=== PATIENT | female | born 1940 | race Caucasian/White ===

== ENCOUNTER 2017-01-22 20:13 | Inpatient (IN) | payer MEDICARE, OTHER ==
[~2017-01-22 20:13] MED LIST: ISOVUE-370 76%-LOCM 1 ML ONE
[2017-01-22] MEDS ORDERED: methylPREDNISolone Sod Succ/PF 125 MG/2 ML VIAL ONE (20:30)
[2017-01-22 20:46] LABS: #Basophils 0.1 thou/uL (0.0-0.2); #Eosinphils 0.2 thou/uL (0.0-0.7); #Lymphocytes 2.7 thou/uL (1.20-3.40); #Monocytes 1.1 thou/uL (0.11-0.59); #Neutrophils 11.7 thou/uL (1.40-6.50); %Basophils 0.7 % (0.0-1.0); %Eosinophils 1.2 % (0.0-10.0); %Lymphocytes 17.1 % (21.0-51.0); Hematocrit 45.9 % (36.0-47.0); Mean Platelet Volume 8.1 fL (7.4-10.4); Red Blood Cell (RBC) Count 4.99 mill/uL (4.20-5.40); White Blood Cell (WBC) Count 15.9 thou/uL (4.8-10.8)
[2017-01-22 21:06] LABS: ALT (SGPT) 16 U/L (8-55); AST (SGOT) 19 U/L (5-34); Alkaline Phosphatase 84 U/L (40-150); Anion Gap 18 mmol/L (10-20); BUN (Urea Nitrogen) 21 mg/dL (9.8-20.1); Calc. Creatinine Clearance 0 mL/min (70-130); Calcium 9.7 mg/dL (7.8-10.44); Carbon Dioxide 25 mmol/L (23-31); Chloride 100 mmol/L (98-107); Estimated GFR-MDRD 54; Globulin 3.5 g/dL (2.4-3.5); Protein, Total 7.4 g/dL (6.0-8.3)
[2017-01-22] MEDS ORDERED: Albuterol Sulfate 2.5 mg/3 ml Neb ONE (21:11)
[2017-01-22 21:33] LABS: Troponin I 0.086 ng/mL (< 0.028)
--- NOTE | 2017-01-22 22:20 | RAD ---
AP VIEW OF THE CHEST 01/22/17 INDICATION: Shortness of breath and productive cough. COMPARISON: PA and lateral of the chest dated 07/16/16. IMPRESSION: Right costophrenic angle is excluded. There is cardiomegaly with pulmonary vasculature congestion and bilateral perihilar edema. Small suspected bilateral pleural effusions suspicious for CHF. COMMENTS: Post CABG change is similar. Chronic osseous changes. POS: [facility]
[2017-01-22] MEDS ORDERED: Furosemide 40 MG/4 ML VIAL ONE (22:26)
[2017-01-22] MEDS ORDERED: Acetaminophen 325 MG TAB PO PRN (23:23)
[2017-01-22] MEDS ORDERED: Guaifenesin DM 100-10/5 ML UDCUP PO PRN (23:23)
--- NOTE | 2017-01-22 23:31 | CT ---
CTA OF THE THORAX UTILIZING IV CONTRAST PE PROTOCOL AND 3D REFORMATTED IMAGING 01/22/17 COMPARISON: Prior exam dated 12/24/09. FINDINGS: No definite central or segmental pulmonary embolus is evident. There is some shotty appearing lymph n odes within the mediastinum which appear roughly stable to the prior exam. There is postsurgical riggins ges of right CABG. There is cardiomegaly with pulmonary vascular congestion, perihilar or air space o pacities suspicious for edema and pleural effusions. Visualized upper abdomen is unremarkable for acu te abnormality. There are scattered degenerative and osteoarthritic change. IMPRESSION: No central or segmental pulmonary embolus is demonstrated. Findings suspicious for mild CHF. POS: [facility]
[2017-01-22 23:53] LABS: Troponin I 0.088 ng/mL (< 0.028)
[2017-01-22] MEDS ORDERED: Azithromycin 500 MG in Sodium Chloride 0.9% 250 ML 250 ML IVPB SCH (23:59)
[2017-01-23] MEDS ORDERED: Metoprolol Tartrate 50 MG TAB PO SCH (00:30)
[2017-01-23] MEDS ORDERED: Morphine 4 MG/ML VIAL IV SCH (02:15)
[2017-01-23] MEDS ORDERED: Morphine 2 mg/2ml in 0.9% NaCl PF SYRINGE SLOW IVP PRN (02:17)
[2017-01-23 03:07] LABS: Troponin I 0.083 ng/mL (< 0.028)
[2017-01-23 03:10] LABS: Band 5 % (5-11); Hematocrit 42.7 % (36.0-47.0); Hypochromia SLIGHT = 6-15 cells (100X) (0-5/hpf); Mean Platelet Volume 8.2 fL (7.4-10.4); Neutrophil 83 % (42-75); Red Blood Cell (RBC) Count 4.69 mill/uL (4.20-5.40); White Blood Cell (WBC) Count 13.3 thou/uL (4.8-10.8)
[2017-01-23 03:11] LABS: ALT (SGPT) 18 U/L (8-55); AST (SGOT) 17 U/L (5-34); Alkaline Phosphatase 80 U/L (40-150); Anion Gap 16 mmol/L (10-20); BUN (Urea Nitrogen) 23 mg/dL (9.8-20.1); Bilirubin, Total 0.7 mg/dL (0.2-1.2); Calc. Creatinine Clearance 89 mL/min (70-130); Calcium 9.3 mg/dL (7.8-10.44); Carbon Dioxide 27 mmol/L (23-31); Chloride 98 mmol/L (98-107); Estimated GFR-MDRD 51; Globulin 3.3 g/dL (2.4-3.5); Protein, Total 7.1 g/dL (6.0-8.3)
--- NOTE | 2017-01-23 08:12 | HP ---
DATE OF ADMISSION: 01/23/2017 CHIEF COMPLAINT: Shortness of breath. HISTORY OF PRESENT ILLNESS: Patient is a 76-year-old female. She presented to the emergen cy room by EMS for shortness of breath that has been going on for about a week. She also has product rakan cough and she reports that she has a lot of chest discomfort, especially when she is coughing. S he has been sick with the upper respiratory infection. Even before the holiday Thanks, she rep orted that she got better, but then it returned. It got worse post the holidays and patient did see her primary care physician, had some injections of steroids as well as antibiotics. At this time, ronnie coppola stated that she does not have any fever or has not been having any fever. No swellings in the legs and she has no nausea or vomiting, no chest pain other than the chest discomfort that she gets w hen she is coughing and having the cough spell. Patient does use oxygen at home up to 2 liters, hist ory of CHF. She also has nebulizer machine as well that she uses and she has been using both her neb ulizing treatment and her albuterol with minimal relief. Patient denied any nausea or vomiting. No chest pain, no diaphoresis, no chills. No anxiety. She does have some dyspnea, especially with exer tion. She reported wheezing as well. PAST MEDICAL HISTORY: Includes congestive heart failure, CAD, she does have hypothyroidism, hyperlip idemia, hypertension, and is on home oxygen at 2 liters her baseline. PAST SURGICAL HISTORY: She has had hernia implant, bilateral knee surgery, bilateral carpal tunnel, cholecystectomy, tonsillectomy, and also CABG of 4 vessels. ALLERGIES: She has no known allergies. SOCIAL HISTORY: The patient denies using any illicit drugs. No smoking, no alcohol. FAMILY HISTORY: No significant medical history. REVIEW OF SYSTEMS: All 12 systems were reviewed. Pertinent negatives and positives were mentioned i n the HPI. PHYSICAL EXAMINATION: VITAL SIGNS: Blood pressure on admission was 116/82 with tachy 149. She was ox satting at 91% on O2 with respiratory rate of 28 and temperature of 98.2. CONSTITUTIONAL: She appeared to be not in any acute distress. She appears to be tachycardic; howeve r, alert and oriented x3. HEAD: Normal. Atraumatic, normocephalic. EYES: Equally round and reactive to light. ENT: Normal. NECK: Normal. RESPIRATORY: She was wheezing in all lobes. CARDIOVASCULAR: She is tachycardic, but rhythm is regular. Heart sounds normal. ABDOMEN: Nontender. Bowel sounds normal. No pulsatile mass. MUSCULOSKELETAL: Upper or lower extremities were all normal exam with normal range of motion. NEUROLOGIC: She is A&O x3. No focal motor deficits. SKIN: Warm, dry. IMAGING AND LABORATORY DATA: Chest x-ray showed findings consistent with CHF. Official lab report o n chart. WBC was slightly elevated on admission, it is 15.9, trended down to 13.3 with latest blood check. Hemoglobin and hematocrit is 14.5 and 45.9. She does have a little bit of neutrophils elevat ed at 83. Her potassium is 3.5, creatinine 1.01, BUN of 21. Sodium 139 and chloride 100. Her tropo lyubov bumped at 0.088 and was trending it, BNP was 645. IMPRESSION: 1. Acute exacerbation of chronic obstructive pulmonary disease. 2. Congestive heart failure exacerbation, acute on chronic. 3. Shortness of breath likely secondary to the above previously mentioned. PLAN: So for plan, the patient is full admission. Condition is fair. Activity as tolerated. The p atient was started on antibiotics as well as breathing treatments. We will continue to follow up. C ontinue home medications and bilateral SCDs for DVT prophylaxis.
[2017-01-23] MEDS: Enoxaparin Sodium 40 MG/0.4 ML SYRINGE SC SCH (08:23)
[2017-01-23] MEDS ORDERED: methylPREDNISolone Sod Succ/PF 125 MG/2 ML VIAL IVP SCH (09:00)
[2017-01-23] MEDS ORDERED: Furosemide 40 MG/4 ML VIAL SLOW IVP SCH (09:00)
[2017-01-23 11:59] LABS: Troponin I 0.095 ng/mL (< 0.028)
[2017-01-23] MEDS ORDERED: Sterile Water 10 ML ONE (11:59)
[2017-01-23 12:36] LABS: Bilirubin Negative (Negative); Blood, Urine Small (Negative); Glucose, Urine (Dipstick) Negative (Negative); Ketone, Urine Negative (Negative); Nitrite Negative (Negative); Protein, Urine (Dipstick) Negative (Neg-Trace)
[2017-01-23 12:38] LABS: Bacteria/HPF None Seen HPF (None Seen); Hyaline Casts/LPF 7-10 HYALINE CAST LPF (0-3 Hyaline); Squamous Epithelial 0-3 HPF (0-3)
--- NOTE | 2017-01-23 13:15 | CON ---
DATE OF CONSULTATION: 01/23/2017 HISTORY OF PRESENT ILLNESS: Ms. Hahn is a 76-year-old female. She was seen by Dr. Stoll in the [facility]. She tells me that he said she does not have lung disease and just has cardiomyopathy. She has b een followed by Dr. Cintron and Dr. Gifford. Dr. Gifford in 08/2005 did a PELLETIER to LAD bypass and saphenou s vein graft to diagonal, obtuse marginal, and right posterolateral branch. She did reasonably well postop other than requiring some low dose dopamine. She dealt with atrial fibrillation postop. She has been followed by Dr. Cintron since then. PAST MEDICAL HISTORY: 1. Hypertension. 2. She has a history of borderline diabetes. 3. History of hypothyroidism reportedly. 4. History of lipid disorder. 5. History of chronic home oxygen therapy. 6. History of herniorrhaphy. 7. History of bilateral knee surgery and carpal tunnel surgery. 8. History of cholecystectomy. 10. History of tonsillectomy. SOCIAL HISTORY: She is a nonsmoker and nondrinker. ALLERGIES: She has no reported drug allergies. REVIEW OF SYSTEMS: Otherwise negative. She says she feels much better than she felt last night. PHYSICAL EXAMINATION: VITAL SIGNS: Blood pressure 108/77. She is in atrial fibrillation with a heart rate of 104, some tr ees fluctuating between the high 80s and low 90s. HEENT: Pupils are equal. Sclerae is anicteric. GENERAL: She is in absolutely no distress. NECK: Supple. She has no lymphadenopathy. LUNGS: Clear now. HEART: Irregular rhythm. ABDOMEN: Soft and nontender. EXTREMITIES: Without asymmetry. RADIOGRAPHIC STUDIES: CT pulmonary angiogram showed no embolic disease, findings consistent with mil d pulmonary edema. IMPRESSION: Congestive heart failure with ? component of cardiac asthma and asthmatic bronchitis. I t is reasonable at this time to treat her, so she has a little bronchitis and she has been symptomati c for a couple weeks. She actually called the office Wednesday to see if Dr. Stoll was in, but did not a sk to be seen. She saw her primary physician on Wednesday who gave her steroid injection and a nebuliz er treatment, I believe which led to some improvement. She declined throughout the rest of the week and decided to head to the emergency room last night. She said she had markedly clinically improved. She is stable to move out of the Critical Care Unit i n my opinion.
--- NOTE | 2017-01-23 14:48 | PDOC.PN ---
- Subjective Encounter Start Date: 01/23/17 Encounter Start Time: 14:46 breathing better no f/c no n/v - Objective MAR Reviewed: Yes Vital Signs & Weight: Vital Signs (12 hours) Temp Pulse Resp BP Pulse Ox 01/23/17 10:45 97.8 F 93 20 135/73 94 L 01/23/17 08:00 97.9 F 79 18 96 01/23/17 04:00 97.7 F Weight Admit Weight 267 lb 3.2 oz Weight 267 lb 3.204 oz Most Recent Monitor Data Heart Rate from ECG 98 NIBP 137/62 NIBP BP-Mean 76 Respiration from ECG 13 SpO2 94 I&O: 01/22/17 01/23/17 01/24/17 06:59 06:59 06:59 Intake Total 490 360 Output Total 810 140 Balance -320 220 Result Diagrams: 01/23/17 02:34 01/23/17 02:34 Phys Exam - Physical Examination Constitutional: NAD HEENT: PERRLA Neck: no nodes Respiratory: no wheezing bibasilar rales, scattered rhonchi Cardiovascular: no significant murmur Gastrointestinal: non-tender Musculoskeletal: pulses present Neurological: normal sensation Psychiatric: A&O x 3 Dx/Plan (1) Acute exacerbation of CHF (congestive heart failure) Code(s): I50.9 - HEART FAILURE, UNSPECIFIED Status: Acute (2) CAD (coronary artery disease) Code(s): I25.10 - ATHSCL HEART DISEASE OF [place] CORONARY ARTERY W/O ANG PCTRS Status: Acute (3) Hyperlipidemia Code(s): E78.5 - HYPERLIPIDEMIA, UNSPECIFIED Status: Acute (4) Hypothyroid Code(s): E03.9 - HYPOTHYROIDISM, UNSPECIFIED Status: Acute (5) HTN (hypertension) Code(s): I10 - ESSENTIAL (PRIMARY) HYPERTENSION Status: Acute (6) Acute exacerbation of chronic obstructive pulmonary disease (COPD) Code(s): J44.1 - CHRONIC OBSTRUCTIVE PULMONARY DISEASE W (ACUTE) EXACERBATION Status: Acute - Plan * cont diuresis * cont steroid and abx * pulm and card input appreciated * f/u labs
[2017-01-23] MEDS: Furosemide 40 MG/4 ML VIAL SLOW IVP SCH (14:57)
--- NOTE | 2017-01-23 16:45 | CON ---
DATE OF CONSULTATION: 01/23/2017 DATE OF CONSULTATION: Shortness of breath and atrial flutter. PRIMARY MACHINE CAGE MAKER: Flory Cintron M.D. REFERRING PROVIDER: Dr. Romano. HISTORY OF PRESENT ILLNESS: Ms. Hahn is a very pleasant 76-year-old woman who recently presented with shortness of breath. She states she has had shortness of breath over the last 2 weeks. It has been progressive. She states she had difficulty walking across room. She presented to the emergency room with above. She is found to be in heart failure. She does have a history of underlying CAD wi th cardiomyopathy. She was also found to be in atrial flutter. PAST MEDICAL HISTORY: CAD, hypertension, hyperlipidemia, and hernia repair. PAST SURGICAL HISTORY: Knee surgery, cholecystectomy, and tonsillectomy. SOCIAL HISTORY: No current tobacco or alcohol use. ALLERGIES: None. HOME MEDICATIONS: Allopurinol, Naprosyn, gabapentin, tizanidine, ranitidine, Lipitor, aspirin, Zolof t, Synthroid, Lasix, and Zestril. REVIEW OF SYSTEMS: Ten point review of systems is reviewed and as above, otherwise negative. PHYSICAL EXAMINATION: GENERAL: Patient is a pleasant female who is in no acute distress. The patient appears her stated a ge. VITAL SIGNS: Blood pressure 135/73, pulse 93, temperature 97.8. NEUROLOGIC: The patient is alert and oriented times 3 with no focal neurologic deficits. HEENT: Sclerae without icterus. Mouth has moist mucous membranes with normal pallor. NECK: No JVD. Carotid upstroke brisk. No bruits bilaterally. LUNGS: Crackles bilaterally. BACK: No scoliosis or kyphosis. CARDIAC: Regular rate and rhythm with normal S1 and S2. No S3 or S4 noted. No significant rubs, mu rmurs, thrills, or gallops noted throughout the precordium. PMI is not displaced. There is no ulysses ternal heave. ABDOMEN: Soft, nontender, nondistended. No peritoneal signs present. No hepatosplenomegaly. No abnormal striae. EXTREMITIES: 2+ femoral and 2+ dorsalis pedis pulses. No cyanosis, clubbing, or edema. SKIN: No gross abnormalities. PERTINENT LABORATORY DATA AND IMAGING: Hemoglobin 13.7, creatinine 1.06. Peak troponin 0.088. Telemetry monitoring shows atrial flutter. IMPRESSION: 1. Shortness of breath. 2. Coronary artery disease. 3. Acute on chronic systolic heart failure. 4. Chronic obstructive pulmonary disease. RECOMMENDATIONS: Ms. Hhan is currently on Lasix IV. She has diuresed. She does feel better. He r rate also appears controlled. At this point, would recommend anticoagulation therapy. She may als o benefit from atrial flutter ablation. We will consult EP on Wednesday. Otherwise, continue aspirin i n addition to metoprolol 25 b.i.d.
[2017-01-23 18:12] LABS: Troponin I 0.091 ng/mL (< 0.028)
[2017-01-23] MEDS: Allopurinol 100 MG TAB PO SCH (21:25)
[2017-01-23] MEDS: Gabapentin 100 MG CAP PO SCH (21:25)
[2017-01-23] MEDS: Metoprolol Tartrate 25 MG TAB PO SCH (21:25)
[2017-01-24] MEDS: Furosemide 40 MG/4 ML VIAL SLOW IVP SCH ×2 (05:00→15:18)
[2017-01-24] MEDS: Levothyroxine Sodium 50 MCG TAB PO SCH (05:01)
[2017-01-24 05:31] LABS: Anion Gap 12 mmol/L (10-20); BUN (Urea Nitrogen) 35 mg/dL (9.8-20.1); BUN/Creatinine Ratio 33.02; Calc. Creatinine Clearance 89 mL/min (70-130); Calcium 9.4 mg/dL (7.8-10.44); Carbon Dioxide 31 mmol/L (23-31); Chloride 99 mmol/L (98-107); Estimated GFR-MDRD 51
[2017-01-24] MEDS ORDERED: Sodium Chloride 0.9% 10 ML ONE (08:55)
[2017-01-24] MEDS: Metoprolol Tartrate 25 MG TAB PO SCH ×2 (10:41→20:20)
[2017-01-24] MEDS: Aspirin 81 mg Enteric Coated Tablet PO SCH (10:41)
[2017-01-24] MEDS: Lisinopril 10 MG TAB PO SCH (10:41)
[2017-01-24] MEDS: Atorvastatin Calcium 10 MG TAB PO SCH (10:41)
[2017-01-24] MEDS: Enoxaparin Sodium 40 MG/0.4 ML SYRINGE SC SCH (10:42)
--- NOTE | 2017-01-24 12:14 | RAD ---
PORTABLE CHEST: HISTORY: Aspiration. COMPARISON: 01/22/17 study. FINDINGS: Heart size is enlarged. The perihilar and lower lobe markings appear slightly improved suggesting th ere is some improving pulmonary edema change. There is no confluent infiltrative process. IMPRESSION: Cardiomegaly with a suggestion of some improvement to some pulmonary edema-type change. POS: [facility]
--- NOTE | 2017-01-24 14:34 | PRG ---
DATE OF SERVICE: 01/24/2017 SUBJECTIVE: Ms. Hahn apparently says she aspirated some turkey this morning, but eventually did c ough it up. She said she had a prolonged period of coughing and significant bronchospasm after that, but says she is cleared up now. OBJECTIVE: VITAL SIGNS: She is afebrile, heart rate is 95, respiratory rate is 18, oximetry is 90, blood pressu re 120/63. LUNGS: Remarkable for faint end-expiratory wheezes. CARDIOVASCULAR: Regular rhythm. ABDOMEN: Soft. IMPRESSION: 1. ?cardiac asthma. 2. Acute on chronic heart failure. 3. Atrial flutter. Electrophysiology plans to evaluate her. She appears to be stable at this time.
--- NOTE | 2017-01-24 15:25 | PDOC.PN ---
- Subjective Encounter Start Date: 01/24/17 Encounter Start Time: 15:24 Patient seen and examined. No new complaints. No overnight events - Objective MAR Reviewed: Yes Vital Signs & Weight: Vital Signs (12 hours) Temp Pulse Resp BP BP Pulse Ox 01/24/17 13:28 97.9 F 95 18 120/63 90 L 01/24/17 12:00 96.7 F L 95 22 H 146/75 H 92 L 01/24/17 10:41 142/70 H 01/24/17 09:52 94 L 01/24/17 09:49 94 16 01/24/17 08:00 98.7 F 94 20 142/70 H 92 L 01/24/17 04:00 97.9 F 90 18 114/68 90 L Weight Admit Weight 267 lb 3.2 oz Weight 280 lb 3 oz Most Recent Monitor Data Heart Rate from ECG 98 NIBP 137/62 NIBP BP-Mean 76 Respiration from ECG 13 SpO2 94 I&O: 01/23/17 01/24/17 01/25/17 06:59 06:59 06:59 Intake Total 490 1110 Output Total 810 840 Balance -320 270 Result Diagrams: 01/23/17 02:34 01/24/17 04:37 Phys Exam - Physical Examination Constitutional: NAD HEENT: PERRLA Neck: no JVD bibasilar rales Cardiovascular: no significant murmur Gastrointestinal: non-tender, no distention Musculoskeletal: pulses present Neurological: moves all 4 limbs Psychiatric: A&O x 3 Dx/Plan (1) Acute exacerbation of CHF (congestive heart failure) Code(s): I50.9 - HEART FAILURE, UNSPECIFIED Status: Acute (2) CAD (coronary artery disease) Code(s): I25.10 - ATHSCL HEART DISEASE OF [place] CORONARY ARTERY W/O ANG PCTRS Status: Acute (3) Hyperlipidemia Code(s): E78.5 - HYPERLIPIDEMIA, UNSPECIFIED Status: Acute (4) Hypothyroid Code(s): E03.9 - HYPOTHYROIDISM, UNSPECIFIED Status: Acute (5) HTN (hypertension) Code(s): I10 - ESSENTIAL (PRIMARY) HYPERTENSION Status: Acute (6) Acute exacerbation of chronic obstructive pulmonary disease (COPD) Code(s): J44.1 - CHRONIC OBSTRUCTIVE PULMONARY DISEASE W (ACUTE) EXACERBATION Status: Acute - Plan * cont diuresis * cont steroid and abx * pulm and card input appreciated * f/u labs * f/u dr chappell rec's
[2017-01-24] MEDS: Gabapentin 100 MG CAP PO SCH (20:20)
[2017-01-24] MEDS: Allopurinol 100 MG TAB PO SCH (20:20)
[2017-01-24] MEDS ORDERED: Enoxaparin Sodium 100 MG/ML SYRINGE SC SCH (21:00)
[2017-01-25] MEDS: Levothyroxine Sodium 50 MCG TAB PO SCH (05:12)
[2017-01-25] MEDS: Furosemide 40 MG/4 ML VIAL SLOW IVP SCH ×2 (05:12→15:48)
[2017-01-25 05:45] LABS: Anion Gap 11 mmol/L (10-20); BUN (Urea Nitrogen) 39 mg/dL (9.8-20.1); BUN/Creatinine Ratio 33.62; Calc. Creatinine Clearance 85 mL/min (70-130); Calcium 9.2 mg/dL (7.8-10.44); Carbon Dioxide 34 mmol/L (23-31); Chloride 99 mmol/L (98-107); Estimated GFR-MDRD 46; Phosphorus 4.2 mg/dL (2.3-4.7)
[2017-01-25] MEDS: Aspirin 81 mg Enteric Coated Tablet PO SCH (08:35)
[2017-01-25] MEDS: Atorvastatin Calcium 10 MG TAB PO SCH (08:35)
[2017-01-25] MEDS: Metoprolol Tartrate 25 MG TAB PO SCH ×2 (08:35→20:32)
[2017-01-25] MEDS ORDERED: Metolazone 5 MG TAB PO SCH (09:30)
[2017-01-25] MEDS ORDERED: Potassium Chloride 20 MEQ TAB PO SCH (09:30)
[2017-01-25] MEDS: Lisinopril 10 MG TAB PO SCH (09:35)
[2017-01-25] MEDS: Enoxaparin Sodium 40 MG/0.4 ML SYRINGE SC SCH (09:35)
--- NOTE | 2017-01-25 09:39 | PRG ---
DATE OF SERVICE: 01/25/2017 SUBJECTIVE: Ms. Hahn still is not breathing normally. OBJECTIVE: VITAL SIGNS: Blood pressure 100/57, pulse 90. LUNGS: With some expiratory wheezing. CARDIAC: Normal S1, normal S2. ABDOMEN: Soft, nontender. EXTREMITIES: Moderate edema. ASSESSMENT: 1. Congestive heart failure, systolic and diastolic. 2. Total volume overloaded. 3. Atrial flutter. 4. Hypokalemia. PLAN: 1. Given dose of metolazone. 2. Extra potassium. 3. Proceed with atrial flutter ablation per Dr. Ac. Per his plan, we will apparently need transes ophageal echo as well.
[2017-01-25 13:42] LABS: Bilirubin Negative (Negative); Blood, Urine Negative (Negative); Glucose, Urine (Dipstick) Negative (Negative); Ketone, Urine Negative (Negative); Nitrite Negative (Negative); Protein, Urine (Dipstick) Negative (Neg-Trace); Urobilinogen 0.2 mg/dL (0.2-1.0)
[2017-01-25 13:46] LABS: Bacteria/HPF None Seen HPF (None Seen); Hyaline Casts/LPF 0-3 HYALINE CAST LPF (0-3 Hyaline); Squamous Epithelial None Seen HPF (0-3); WBC/HPF 0-3 HPF (0-3)
--- NOTE | 2017-01-25 14:53 | PRG ---
DATE OF SERVICE: 01/25/2017 SUBJECTIVE: This morning, she is still coughing, still short of breath, she is wheezing. Apparently, she has seen EP for possible ablation. The sputum that she is coughing were grossly purulent. OBJECTIVE: VITAL SIGNS: Blood pressure 100/57, sats are 92 on 4 liters, respiration 20, temperature 97. CHEST: Reveals diffuse wheezing bilaterally. CARDIAC: Sinus tachycardia. ABDOMEN: Soft. LABORATORY DATA AND X-RAY FINDINGS: CBC unremarkable, creatinine 1.6. Cultures are negative. X-ray shows cardiomegaly with no obvious infiltrates. Echo shows normal EF. She had a CT done of her chest, which shows basically ground glass haziness and small bilateral pleural effusion. IMPRESSION: 1. Respiratory failure. 2. Supraventricular tachycardia. 3. Morbid obesity. PLAN: She needs scheduled neb treatments. She needs scheduled steroids. Await input from an EP. We will follow. DONNA
--- NOTE | 2017-01-25 17:18 | PDOC.PN ---
- Subjective Encounter Start Date: 01/25/17 Encounter Start Time: 17:17 doing much better no n/v no f/c - Objective MAR Reviewed: Yes Vital Signs & Weight: Vital Signs (12 hours) Temp Pulse Resp BP Pulse Ox 01/25/17 16:30 97.9 F 01/25/17 15:43 99.3 F 93 20 108/55 L 94 L 01/25/17 11:49 93 101/59 L 01/25/17 11:35 97.9 F 91 16 81/50 L 92 L 01/25/17 08:30 97.9 F 95 20 92 L 01/25/17 08:29 97.9 F 95 20 100/57 L 92 L 01/25/17 05:36 68 16 93 L Weight Admit Weight 267 lb 3.2 oz Weight 279 lb 5 oz Most Recent Monitor Data Heart Rate from ECG 98 NIBP 137/62 NIBP BP-Mean 76 Respiration from ECG 13 SpO2 94 I&O: 01/24/17 01/25/17 01/26/17 06:59 06:59 06:59 Intake Total 1110 1650 Output Total 840 2500 Balance 270 -850 Result Diagrams: 01/23/17 02:34 01/25/17 04:37 Phys Exam - Physical Examination Constitutional: NAD HEENT: PERRLA Neck: no JVD Respiratory: no wheezing Cardiovascular: no significant murmur Gastrointestinal: non-tender Musculoskeletal: pulses present Neurological: moves all 4 limbs Psychiatric: A&O x 3 Dx/Plan (1) Acute exacerbation of CHF (congestive heart failure) Code(s): I50.9 - HEART FAILURE, UNSPECIFIED Status: Acute (2) CAD (coronary artery disease) Code(s): I25.10 - ATHSCL HEART DISEASE OF [place] CORONARY ARTERY W/O ANG PCTRS Status: Acute (3) Hyperlipidemia Code(s): E78.5 - HYPERLIPIDEMIA, UNSPECIFIED Status: Acute (4) Hypothyroid Code(s): E03.9 - HYPOTHYROIDISM, UNSPECIFIED Status: Acute (5) HTN (hypertension) Code(s): I10 - ESSENTIAL (PRIMARY) HYPERTENSION Status: Acute (6) Acute exacerbation of chronic obstructive pulmonary disease (COPD) Code(s): J44.1 - CHRONIC OBSTRUCTIVE PULMONARY DISEASE W (ACUTE) EXACERBATION Status: Acute - Plan * * cont diuresis * cont steroid and abx * pulm and card input appreciated * f/u labs * f/u dr chappell rec's
[2017-01-25] MEDS ORDERED: Enoxaparin Sodium 100 MG/ML SYRINGE SC SCH (18:00)
[2017-01-25] MEDS: Mometasone/Formoterol 120 PUFF INHALER INH SCH (18:26)
[2017-01-25] MEDS: Gabapentin 100 MG CAP PO SCH (20:32)
[2017-01-25] MEDS: Allopurinol 100 MG TAB PO SCH (20:32)
[2017-01-26 05:01] LABS: #Basophils 0.1 thou/uL (0.0-0.2); #Eosinphils 0.3 thou/uL (0.0-0.7); #Monocytes 1.4 thou/uL (0.11-0.59); #Neutrophils 10.1 thou/uL (1.40-6.50); %Basophils 0.4 % (0.0-1.0); %Eosinophils 2.1 % (0.0-10.0); %Lymphocytes 14.5 % (21.0-51.0); Hematocrit 48.3 % (36.0-47.0); Mean Platelet Volume 8.3 fL (7.4-10.4); Red Blood Cell (RBC) Count 5.23 mill/uL (4.20-5.40); White Blood Cell (WBC) Count 13.8 thou/uL (4.8-10.8)
[2017-01-26] MEDS: Levothyroxine Sodium 50 MCG TAB PO SCH (05:22)
[2017-01-26 06:58] LABS: Anion Gap 16 mmol/L (10-20); BUN (Urea Nitrogen) 30 mg/dL (9.8-20.1); BUN/Creatinine Ratio 28.57; Calc. Creatinine Clearance 93 mL/min (70-130); Carbon Dioxide 37 mmol/L (23-31); Chloride 92 mmol/L (98-107); Estimated GFR-MDRD 51; Phosphorus 3.3 mg/dL (2.3-4.7)
--- NOTE | 2017-01-26 07:00 | CON ---
DATE OF CONSULTATION: 01/25/2017 ELECTROPHYSIOLOGY CONSULTATION REPORT I am seeing Ms. Hahn at our [facility] telemetry floor as an electrophysiology community resource consultant. Her problems are: 1. Sustained atrial flutter, likely typical and isthmus-dependent in morphology. 2. Chronic systolic/diastolic congestive heart failure with acute exacerbation. A. Moderately reduced LVEF by 2D echo on 01/23/2017, moderate MR, mild-to- moderate TR. 3. History of coronary artery disease. A. History of coronary artery bypass grafting surgery in the past x4 vessel. B. The patient cannot recall a history of myocardial infarction. 4. Chronic COPD. A. Over a [id number] for smoking in the past. 5. Coronary artery risk factors. A. Hypertension. B. Hyperlipidemia. C. Morbid obesity. 6. History of hypothyroidism. ALLERGIES: None noted. MEDICATIONS AT HOME: Include allopurinol, nitroglycerin, naproxen, gabapentin, ranitidine, atorvastatin, aspirin, sertraline, levothyroxine, furosemide, and lisinopril. SUBJECTIVE: Ms. Hahn is here due to sustained tachycardic palpitations and associated dyspnea, which has been bothering her for about a week. She also has productive cough, some chest discomfort when she is coughing. She had an upper respiratory tract infection recently. That started even before , then she got better, but then these symptoms occurred. She feels her heart beating irregular or rapid. She denies true anginal discomfort. She has no stroke-like symptoms or neurological deficits. She does not pass out. She denies swelling over the legs. No nausea or vomiting. She uses her inhalers and nebulizers more frequently. Denies fevers. No burning with urination. No stroke-like symptoms or bleeding issues are noted. REVIEW OF SYSTEMS: Twelve-point system otherwise unremarkable. PAST MEDICAL HISTORY: As above. She uses 2 liters of home oxygen as well over the time. SOCIAL HISTORY: Patient denies smoking, EtOH, or drug use. She used to smoke 30 years in the past. FAMILY HISTORY: Noncontributory. OBJECTIVE DATA: VITAL SIGNS: Blood pressure is 108/55, heart rate 93, respirations 20, temperature 99.3 degrees Fahrenheit. GENERAL: She is alert and oriented woman, in no apparent distress with a markedly elevated BMI. NECK: Supple. Jugular veins are difficult to visualize. CHEST: Coarse, no crackles. CARDIAC: Heart sounds are regular, but very tachycardic. S1, S2 normal. I do not hear murmur or gallop. Midsternal scar is noted. ABDOMEN: Benign. Bowel sounds positive. EXTREMITIES: Lower extremity without edema, clubbing, or cyanosis. Pulses are adequate. NEUROLOGIC: Patient is nonfocal. MUSCULOSKELETAL EXAM: Without joint swelling or deformities. SKIN: Without rash. DATABASE: The EKGs reveal atrial flutter with rapid rates at 149 beats per minute and left bundle branch pattern is noted. Telemetry strips continue to review 2:1 atrial flutter. LABORATORY DATA: White count of 13.3, hemoglobin 13.7, platelet count is 351. Sodium 141, potassium 3.2, BUN is 39, creatinine 1.16. MEDICATIONS: The patient is currently on nebulizer, levofloxacin, metoprolol, prednisone, low-dose Lovenox on hold. ASSESSMENT AND PLAN: Ms. Hahn is a pleasant 76-year-old woman with a prior history of coronary artery disease without definite myocardial infarction, presenting with sustained atrial flutter after an upper respiratory tract infection episode. She also has signs and symptoms of heart failure and indeed her echocardiogram is suggestive of moderate LV dysfunction. She has mild-to- moderately elevated BNP as well. My plan is, 1. Atrial flutter appears to be atypical, likely isthmus-dependent. I explained to her the mechanism of atrial flutter and potential treatment options , which could include further medical management, ( although so far not successful ) and also cardioversion, which carries a chance of recurrence, and also radiofrequency ablation of the cavo-tricuspid isthmus. Explained the procedure, risks, and benefits of that. She understands the chance of stroke, to minimize that a NANCIE might be necessary prior to that procedure. I will give her a full-dose Lovenox today, but will hold it for tomorrow. She understands the procedure and willing to proceed. We will schedule for her a near date. 2. Heart failure without prior myocardial infarction history, although with coronary artery disease. The etiology of her left ventricular dysfunction and heart failure exacerbation could be partially related to her atrial flutter and rapid rates. Left ventricular ejection fraction should be reassessed in the future. If left ventrixular function remains depressed, she might be considered for implantable cardioverter-defibrillator therapy, possibly biventricular pacing. 3. Left bundle branch block pattern, as above. 4. Stable coronary artery disease as per Dr. Cintron. 5. Chronic obstructive pulmonary disease, bronchitis, reasonably controlled. 6. Morbid obesity. Weight loss recommended. We will make arrangements for EP study and ablation procedure for tomorrow. ARINAD
[2017-01-26] MEDS: Mometasone/Formoterol 120 PUFF INHALER INH SCH ×2 (07:11→18:29)
[2017-01-26] MEDS: Atorvastatin Calcium 10 MG TAB PO SCH (08:19)
[2017-01-26] MEDS: Aspirin 81 mg Enteric Coated Tablet PO SCH (08:20)
[2017-01-26] MEDS: Metoprolol Tartrate 25 MG TAB PO SCH ×2 (08:20→20:37)
[2017-01-26] MEDS: predniSONE 20 MG TAB PO SCH (08:20)
--- NOTE | 2017-01-26 09:13 | PRG ---
DATE OF SERVICE: 01/26/2017 Ms. Hahn is resting comfortably, no chest pain or shortness of breath. PHYSICAL EXAMINATION: VITAL SIGNS: Blood pressure 126/57, pulse 98, regular. LUNGS: Clear. CARDIAC: Normal S1 and S2. ASSESSMENT: 1. Atrial flutter, sustained 2. History of diastolic heart failure. PLAN: Proceed with atrial flutter ablation today.
--- NOTE | 2017-01-26 11:20 | PRG ---
DATE OF SERVICE: 01/26/2017 SUBJECTIVE: This morning, she is awake, alert, responsive. She is less short of breath, less wheezi ng. Sputum is . OBJECTIVE: VITAL SIGNS: Sat 96% on 2 liters, temperature is 97, pulse 96, respirations 16. CHEST: Reveals occasional wheeze, bilateral crackles. CARDIAC: Normal S1, S2. No gallops. ABDOMEN: Soft. No masses. LABORATORY: White count 13,000. H and H is 14 and 48, platelet count is 339, BUN is 30, creatinine 1. IMPRESSION: 1. Atrial fibrillation. 2. Supraventricular tachycardia. 3. Chronic obstructive pulmonary disease. 4. Congestive heart failure. PLAN: Await input from EP; otherwise, continue steroids, neb treatments, supportive care. We kimani gerard.
[2017-01-26] MEDS ORDERED: Heparin 10,000 UNITS/1 ML VIAL ONE ×2 (12:17→15:14)
[2017-01-26] MEDS ORDERED: Heparin 1000 UNIT/NS 500ML(OR) 500 ML ONE (12:18)
[2017-01-26] MEDS ORDERED: Diprivan 40 ML ONE (13:58)
[2017-01-26] MEDS ORDERED: DOPamine 400 MG/D5W 250 ML 250 ML ONE (15:14)
[2017-01-26] MEDS ORDERED: Fentanyl 100 MCG/2 ML VIAL ONE (15:39)
[2017-01-26] MEDS ORDERED: Midazolam HCl 2 mg/2 ml Vial ONE (15:39)
[2017-01-26] MEDS ORDERED: Propofol 500 MG/50 ML VIAL ONE (15:43)
--- NOTE | 2017-01-26 16:19 | PDOC.PN ---
- Subjective Encounter Start Date: 01/26/17 Encounter Start Time: 16:18 Patient seen and examined. No new complaints. No overnight events - Objective MAR Reviewed: Yes Vital Signs & Weight: Vital Signs (12 hours) Temp Pulse Resp BP Pulse Ox 01/26/17 12:18 69 16 95 01/26/17 12:00 98.0 F 92 18 121/65 96 01/26/17 08:15 98 F 98 18 91 L 01/26/17 08:12 98 F 98 18 126/57 L 91 L 01/26/17 07:11 96 16 92 L 01/26/17 07:10 96 16 92 L Weight Admit Weight 267 lb 3.2 oz Weight 277 lb Most Recent Monitor Data Heart Rate from ECG 98 NIBP 137/62 NIBP BP-Mean 76 Respiration from ECG 13 SpO2 94 I&O: 01/25/17 01/26/17 01/27/17 06:59 06:59 06:59 Intake Total 1650 1600 Output Total 2500 5250 Balance -850 -3650 Result Diagrams: 01/26/17 04:31 01/26/17 06:02 Phys Exam - Physical Examination Constitutional: NAD HEENT: PERRLA Neck: no JVD Respiratory: no wheezing Cardiovascular: no significant murmur Gastrointestinal: non-tender Musculoskeletal: pulses present Neurological: moves all 4 limbs Psychiatric: A&O x 3 Dx/Plan (1) Acute exacerbation of CHF (congestive heart failure) Code(s): I50.9 - HEART FAILURE, UNSPECIFIED Status: Acute (2) CAD (coronary artery disease) Code(s): I25.10 - ATHSCL HEART DISEASE OF [place] CORONARY ARTERY W/O ANG PCTRS Status: Acute (3) Hyperlipidemia Code(s): E78.5 - HYPERLIPIDEMIA, UNSPECIFIED Status: Acute (4) Hypothyroid Code(s): E03.9 - HYPOTHYROIDISM, UNSPECIFIED Status: Acute (5) HTN (hypertension) Code(s): I10 - ESSENTIAL (PRIMARY) HYPERTENSION Status: Acute (6) Acute exacerbation of chronic obstructive pulmonary disease (COPD) Code(s): J44.1 - CHRONIC OBSTRUCTIVE PULMONARY DISEASE W (ACUTE) EXACERBATION Status: Acute - Plan * for ablation therapy * f/u card plan
[2017-01-26] MEDS ORDERED: Propofol 200 MG/20 ML VIAL ONE (16:43)
--- NOTE | 2017-01-26 17:13 | ECHO ---
DATE OF PROCEDURE: 01/26/2017 PROCEDURE PERFORMED: Transesophageal echocardiogram. REASON FOR PROCEDURE: Mrs. Hahn is a 76-year-old female with history of coronary artery disease a nd bypass surgery who presents with ----- atrial flutter and some degree of heart failure exacerbatio n. She is here for a NANCIE to rule out intracardiac clot hence suboptimal anticoagulation present. PROCEDURE IN DETAIL: The patient received propofol per Anesthesia provider. The standard transesoph ageal echocardiogram probe was passed into the esophagus without difficulty. Patient tolerated proce dure well, no complications noted. RESULTS: The left atrium is mildly enlarged, about 5 cm in horizontal diameter. Left atrial appenda ge is well visualized and contains no clots. Left atrial appendage velocities are 40 to 50 cm per se cond. The four pulmonary veins were seen and mild central regurgitation. The left systolic function is mildly reduced. LVEF was estimated at 45%-50%, paroxysmal atrial septal motion due to bundle bra nch conduction and also some degree of apical anterior hypokinesis was also seen. The right-sided ch christin is mildly dilated. The interatrial intraventricular septum is free of defect. The aortic valv e is three leaflets without regurgitation or cyanosis. The tricuspid valve has minimal regurg; ----- is not visualized. Pericardial space mostly with fat pad seen. The left ventricular size, otherwis e normal, no LVH noted. The visualized portion of the ascending and descending aorta without aneurys m, dissection and minimal adherent and atheroma is noted. CONCLUSION: 1. No intracardiac clots. 2. Mildly reduced left ventricular systolic function with wall motion abnormalities as above. 3. Mild mitral regurgitation. 4. Mild to moderate left atrial enlargement. 5. Pericardial fat pad is seen. PLAN: Proceed with ablation procedure. POS: [facility]
[2017-01-26] MEDS ORDERED: Mag-Al 1200 mg/1200 mg/30 ML UDCUP PO PRN (18:22)
[2017-01-26] MEDS ORDERED: Silver Sulfadiazine 1% Cream 50 GM JAR TOP PRN (18:22)
[2017-01-26] MEDS ORDERED: diphenhydrAMINE 25 MG CAP PO PRN (18:22)
[2017-01-26] MEDS ORDERED: Temazepam 15 MG CAP PO PRN (18:22)
[2017-01-26] MEDS ORDERED: Bisacodyl 5 MG TAB PO PRN (18:22)
[2017-01-26] MEDS ORDERED: Bisacodyl 10 MG SUPP PR PRN (18:22)
[2017-01-26] MEDS ORDERED: Ondansetron HCl/PF 4 MG/2 ML Vial IVP PRN (18:22)
[2017-01-26] MEDS ORDERED: Nitroglycerin 0.4 MG TAB (25 Tab Bottle) SL PRN (18:22)
[2017-01-26] MEDS: Allopurinol 100 MG TAB PO SCH (20:37)
[2017-01-26] MEDS: traMADol HCl 50 MG TAB PO PRN (20:37)
[2017-01-26] MEDS: Gabapentin 100 MG CAP PO SCH (20:37)
[2017-01-27] MEDS: Levothyroxine Sodium 50 MCG TAB PO SCH (06:12)
[2017-01-27] MEDS: traMADol HCl 50 MG TAB PO PRN (06:16)
[2017-01-27] MEDS: Mometasone/Formoterol 120 PUFF INHALER INH SCH ×2 (08:20→19:51)
--- NOTE | 2017-01-27 08:35 | CCLSPC ---
ELECTROPHYSIOLOGY STUDY: REASON FOR PROCEDURE: Mrs. Hahn is a 76-year-old female who presented with congestive heart failure exacerbation and ale tained newly found atrial flutter. Flutter has an atypical EKG appearance. History of cavotricuspid isthmus dependency postop. She underwent a NANCIE today demonstrating no intracardiac clots. LVEF is mild reduced. She is here for a here for an EP study and possible ablation. PROCEDURE: The patient received deep sedation by Anesthesia specialist. After adequate level of sedation achie ed, the right femoral venous area was prepped, draped, and anesthetized using subcutaneous lidocaine and with ultrasound guidance, right femoral venous access was obtained x2. Two 8 [place] short sheath s were introduced. A decapolar CS catheter was advanced to the CS os area. The CS cannulation was v sy difficult. The atrial flutter was found. The cycle length was 220 milliseconds with variable AV conduction. The overdrive pacing of the cavotricuspid isthmus CS area managed the cycle length of t he tachycardia. Following that, an 8 [place] Sinovac [employer] ThermoCool SF catheter was advanced to the right atrium and a right atrial 3D map was obtained. His bundle was also measured. The catheter was also advanced to t he RV. Pacing, mapping, and recording was obtained from which location. Following that, radiofrequency ablation of the cavotricuspid isthmus was performed which eventually t erminated the flutter during the ablation. Following that with the CS proximal pacing further ablati on lesions were space to extend the transisthmus time from initial 60 to a total of 150 milliseconds. Single block was demonstrated. A transisthmus block was demonstrated with progressively short turn ing transisthmus time measured moving the catheter more laterally on the isthmus. Following that, dopamine was administered and the measurements were repeated on dopamine and the isth mus block persisted. Burst atrial pacing did not induce arrhythmias. Baseline EP study was performed. The catheter was also advanced to the RV and the RV pacing was done . The following findings were measured: the QRS 131, the HV 97, the sinus node recovery time was measur ed about 240 milliseconds corrected to RA interval of 48. The total was 90 milliseconds. The AV Chinyere ckebach cycle length after the ablation was 380 milliseconds retrograde, VA conduction was for 10 mil liseconds. AV reji ERP was sinus 600/280 milliseconds, no AV jump was demonstrated. CONCLUSION: 1. Baseline atrial flutter which was cavotricuspid isthmus-dependent successfully terminated and venecia dered noninducible by cavotricuspid isthmus ablation. 2. Demonstrates of PA and lateral cavotricuspid isthmus block seen. 3. Baseline left bundle branch block with markedly prolonged HV in the baseline. 4. Normal AV reji function and sinus reji function seen. 5. No inducible atrial arrhythmias post-ablation on dopamine. POS: [facility]
--- NOTE | 2017-01-27 09:54 | PRG ---
DATE OF SERVICE: 01/27/2017 Ms. Hahn feels short of breath today. She had a "choking spell" earlier, she is still short of breath now. PHYSICAL EXAMINATION: VITAL SIGNS: Blood pressure 114/79, pulse 87, it is sinus on the monitor here. LUNGS: Clear anteriorly, but there are a few wheezes bilaterally. CARDIOVASCULAR: Normal S1, S2. ABDOMEN: Soft, nontender. EXTREMITIES: There is still moderate edema. ASSESSMENT: 1. Congestive heart failure, systolic and diastolic mixed, ejection fraction estimated at 45-50% yes terday by Dr. Todd on transesophageal echo. 2. Underlying coronary disease. 3. Status post atrial flutter ablation. 4. The patient appears to be volume overloaded. PLAN: 1. Give intravenous diuretics. 2. Hold metoprolol, consider carvedilol tomorrow in view of mixed congestive heart failure which is mostly diastolic. 3. Replete potassium. 4. Hopefully home tomorrow. 5. Reduce steroids, appears to mostly cardiac shortness of breath not pulmonary.
[2017-01-27] MEDS ORDERED: predniSONE 20 MG TAB PO SCH (10:00)
[2017-01-27] MEDS ORDERED: Potassium Chloride 20 MEQ TAB PO SCH ×2 (10:00→20:00)
[2017-01-27] MEDS ORDERED: Furosemide 100 MG/10 ML VIAL IVPB SCH (10:00)
[2017-01-27] MEDS: predniSONE 20 MG TAB PO SCH (10:23)
[2017-01-27] MEDS: Metoprolol Tartrate 25 MG TAB PO SCH (10:23)
[2017-01-27] MEDS: Aspirin 81 mg Enteric Coated Tablet PO SCH (10:34)
[2017-01-27] MEDS: Apixaban 5 MG TAB PO SCH ×2 (10:34→21:29)
[2017-01-27] MEDS: Atorvastatin Calcium 10 MG TAB PO SCH (10:34)
[2017-01-27 12:16] VITALS: BMI 48.9
--- NOTE | 2017-01-27 12:21 | PRG ---
DATE OF SERVICE: 01/27/2017 SUBJECTIVE: She is better. She is still short of breath. PHYSICAL EXAMINATION: VITAL SIGNS: Sats are 91on 3 liters, temperature is 97, blood pressure 114/79. She underwent ablati on yesterday. CHEST: Decreased breath sounds, occasional wheeze. CARDIAC: Normal S1, S2. IMPRESSION: 1. Congestive heart failure. 2. Chronic obstructive pulmonary disease, severe deconditioning. 3. Supraventricular tachycardia. PLAN: Continue neb treatments, low dose prednisone, hopefully we will discharge her home in the next 24-48 hours.
--- NOTE | 2017-01-27 14:12 | PDOC.PN ---
- Subjective Encounter Start Date: 01/27/17 Encounter Start Time: 14:10 s/p ablation doing well no f/c no n/v no sob - Objective MAR Reviewed: Yes Vital Signs & Weight: Vital Signs (12 hours) Temp Pulse Resp BP Pulse Ox 01/27/17 12:00 98.5 F 87 18 140/67 93 L 01/27/17 08:00 98.3 F 82 20 126/58 L 92 L 01/27/17 07:13 87 20 91 L 01/27/17 04:00 97.8 F 87 20 114/79 93 L 01/27/17 02:17 94 L Weight Admit Weight 267 lb 3.2 oz Weight 276 lb Most Recent Monitor Data Heart Rate from ECG 98 NIBP 137/62 NIBP BP-Mean 76 Respiration from ECG 13 SpO2 94 I&O: 01/26/17 01/27/17 01/28/17 06:59 06:59 06:59 Intake Total 1600 960 720 Output Total 5250 825 Balance -3650 135 720 Result Diagrams: 01/26/17 04:31 01/26/17 06:02 Phys Exam - Physical Examination Constitutional: NAD HEENT: PERRLA Neck: no JVD Respiratory: no wheezing Cardiovascular: RRR, no significant murmur Gastrointestinal: soft, non-tender Musculoskeletal: pulses present Neurological: moves all 4 limbs Psychiatric: A&O x 3 Dx/Plan (1) Acute exacerbation of CHF (congestive heart failure) Code(s): I50.9 - HEART FAILURE, UNSPECIFIED Status: Acute Comment: mixed ef - 45% (2) CAD (coronary artery disease) Code(s): I25.10 - ATHSCL HEART DISEASE OF [place] CORONARY ARTERY W/O ANG PCTRS Status: Chronic (3) Hyperlipidemia Code(s): E78.5 - HYPERLIPIDEMIA, UNSPECIFIED Status: Chronic (4) Hypothyroid Code(s): E03.9 - HYPOTHYROIDISM, UNSPECIFIED Status: Chronic (5) HTN (hypertension) Code(s): I10 - ESSENTIAL (PRIMARY) HYPERTENSION Status: Chronic (6) Acute exacerbation of chronic obstructive pulmonary disease (COPD) Code(s): J44.1 - CHRONIC OBSTRUCTIVE PULMONARY DISEASE W (ACUTE) EXACERBATION Status: Chronic (7) SVT (supraventricular tachycardia) Code(s): I47.1 - SUPRAVENTRICULAR TACHYCARDIA Status: Resolved Comment: s/p ablation - 01/26 (8) SOB (shortness of breath) Code(s): R06.02 - SHORTNESS OF BREATH Status: Acute - Plan * doing well * anticoagulated * f/u card plan * possible d/c in am
--- NOTE | 2017-01-27 17:48 | PRG ---
ELECTROPHYSIOLOGY FOLLOWUP NOTE DATE OF SERVICE: 01/27/2017 SUBJECTIVE: Ms. Hahn seems to be doing well one day after her ablation. She still has some dyspnea though. OBJECTIVE DATA: VITAL SIGNS: Blood pressure 140/67, heart rate 87, respirations 18, temperature 98.5 degrees Fahrenheit. GENERAL: Alert, oriented, morbidly obese woman, in no apparent distress. NECK: Supple. Jugular veins difficult to see and appears to be nondistended. CHEST: Coarse without crackles. CARDIOVASCULAR: Heart sounds are regular to rate and rhythm. No murmur or gallop. ABDOMEN: Benign. Bowel sounds positive. EXTREMITIES: Lower extremities without edema, clubbing or cyanosis. DATABASE: EKGs reviewed reveals sinus rhythm, she has got left bundle branch block, no high-grade AV block is seen. No atrial flutter is noted. MEDICATIONS: Reviewed. ASSESSMENT AND PLAN: Ms. Hahn is a pleasant 76-year-old woman with a prior history of asthma, coronary artery disease, who has presented with atrial flutter, which was sustained. She underwent NANCIE, demonstrating no clots, and the was estimated to be unremarkable . She underwent cavotricuspid ablation terminating atrial flutter and induction. At this point, the patient seems to be doing well one day post-procedure maintaining sinus rhythm. Continue monitoring because of atrial flutter. Can consider adding Eliquis for anticoagulation for a month. 2. Conduction disease. Left bundle branch baseline pattern is noted. During EP study HV interval 80 to 90 milliseconds range were seen. Hence, no symptoms of bradycardia for now, no pacemaker, but re-consider strongly if any bradycardia symptoms occur. 3. Cardiomyopathy, likely ischemic, LVEF was mild to moderately reduced. Again for now, I recommend standard heart failure regimen. If LVEF worsens further, ICD implantation is a consideration. Also, if heart failure symptoms occur, biventricular pacing could be also considered. 4. Morbid obesity. Weight loss recommended 5. Chronic obstructive pulmonary disease and asthma. Continue as per primary team. ut re MTDD
[2017-01-27] MEDS: Gabapentin 100 MG CAP PO SCH (21:29)
[2017-01-27] MEDS: Allopurinol 100 MG TAB PO SCH (21:29)
[2017-01-27] MEDS ORDERED: Furosemide 40 MG/4 ML VIAL SLOW IVP SCH (22:00)
[2017-01-28] MEDS: Levothyroxine Sodium 50 MCG TAB PO SCH (05:41)
[2017-01-28 06:22] LABS: BUN (Urea Nitrogen) 19 mg/dL (9.8-20.1); Calc. Creatinine Clearance 116 mL/min (70-130); Calcium 9.9 mg/dL (7.8-10.44); Estimated GFR-MDRD 68
[2017-01-28 06:32] LABS: Chloride 91 mmol/L (98-107)
[2017-01-28 06:35] LABS: Anion Gap 14 mmol/L (10-20); Carbon Dioxide 38 mmol/L (23-31)
[2017-01-28] MEDS: Mometasone/Formoterol 120 PUFF INHALER INH SCH ×2 (07:57→19:27)
[2017-01-28] MEDS ORDERED: Lisinopril 10 MG TAB PO SCH (09:20)
[2017-01-28] MEDS ORDERED: Furosemide 20 MG TAB PO SCH (09:20)
[2017-01-28] MEDS ORDERED: Carvedilol 3.125 MG TAB PO SCH (09:20)
--- NOTE | 2017-01-28 09:21 | PRG ---
DATE OF SERVICE: 01/28/2017 This morning she is awake, alert, responsive. She is better, less short of breath. PHYSICAL EXAMINATION: VITAL SIGNS: Sats are 93%, pulse 70, temperature 97, respirations 26. CHEST: Reveals occasional wheeze. CARDIAC: Normal S1-S2. LABORATORY: Electrolytes are normal. IMPRESSION: 1. Chronic obstructive pulmonary disease. 2. Congestive heart failure. 3. Supraventricular tachycardia status post ablation. PLAN: She can be discharged home on tapering dose of prednisone for a week. Otherwise, she can foll ow up in the office in about 2 weeks.
--- NOTE | 2017-01-28 09:26 | PRG ---
DATE OF SERVICE: 01/28/2017 Ms. Hahn is feeling much better today. She has no chest pain. Her breathing is about the same. PHYSICAL EXAMINATION: VITAL SIGNS: Blood pressure 120/56, pulse is 90 with PACs. LUNGS: Clear. CARDIAC: Normal S1, normal S2 with premature contractions. ABDOMEN: Soft, nontender. EXTREMITIES: There is no edema. The patient had excellent diuresis yesterday with 3 liters out. ASSESSMENT: 1. Congestive heart failure, mostly diastolic, improved. 2. Chronic obstructive pulmonary disease. 3. Status post atrial flutter ablation. PLAN: 1. Aspirin. 2. Apixaban 5 mg twice a day for 30 days. 3. Carvedilol 3.125 mg twice a day, will need to use a very low dose in view of chronic obstructive pulmonary disease. 4. Okay to go home today. 5. Resume lisinopril. 6. Low dose diuretics.
--- NOTE | 2017-01-28 10:26 | PDOC.PN ---
- Subjective Encounter Start Date: 01/28/17 Encounter Start Time: 10:25 doing good no sob no n/v no f/c - Objective MAR Reviewed: Yes Vital Signs & Weight: Vital Signs (12 hours) Temp Pulse Resp BP Pulse Ox 01/28/17 07:59 90 18 01/28/17 03:50 97.8 F 75 16 121/56 L 90 L 01/28/17 01:12 93 L 01/28/17 01:10 82 16 92 L 01/28/17 00:00 97.6 F 85 18 127/97 H 92 L Weight Admit Weight 267 lb 3.2 oz Weight 270 lb 2 oz Most Recent Monitor Data Heart Rate from ECG 98 NIBP 137/62 NIBP BP-Mean 76 Respiration from ECG 13 SpO2 94 I&O: 01/27/17 01/28/17 01/29/17 06:59 06:59 06:59 Intake Total 960 3060 Output Total 825 3050 Balance 135 10 Result Diagrams: 01/26/17 04:31 01/28/17 05:38 Phys Exam - Physical Examination Constitutional: NAD HEENT: PERRLA Neck: no JVD Respiratory: no wheezing Cardiovascular: no significant murmur Gastrointestinal: soft Musculoskeletal: pulses present Neurological: moves all 4 limbs Psychiatric: A&O x 3 Dx/Plan (1) Acute exacerbation of CHF (congestive heart failure) Code(s): I50.9 - HEART FAILURE, UNSPECIFIED Status: Acute Comment: mixed ef - 45% (2) CAD (coronary artery disease) Code(s): I25.10 - ATHSCL HEART DISEASE OF [place] CORONARY ARTERY W/O ANG PCTRS Status: Chronic (3) Hyperlipidemia Code(s): E78.5 - HYPERLIPIDEMIA, UNSPECIFIED Status: Chronic (4) Hypothyroid Code(s): E03.9 - HYPOTHYROIDISM, UNSPECIFIED Status: Chronic (5) HTN (hypertension) Code(s): I10 - ESSENTIAL (PRIMARY) HYPERTENSION Status: Chronic (6) Acute exacerbation of chronic obstructive pulmonary disease (COPD) Code(s): J44.1 - CHRONIC OBSTRUCTIVE PULMONARY DISEASE W (ACUTE) EXACERBATION Status: Chronic (7) SVT (supraventricular tachycardia) Code(s): I47.1 - SUPRAVENTRICULAR TACHYCARDIA Status: Resolved Comment: s/p ablation - 01/26 (8) SOB (shortness of breath) Code(s): R06.02 - SHORTNESS OF BREATH Status: Acute - Plan * doing well * outpt f/u with pulm and card
[2017-01-28] MEDS: Carvedilol 3.125 MG TAB PO SCH ×3 (10:53→17:28)
[2017-01-28] MEDS: predniSONE 20 MG TAB PO SCH (10:53)
[2017-01-28] MEDS: Aspirin 81 mg Enteric Coated Tablet PO SCH (10:54)
[2017-01-28] MEDS: Apixaban 5 MG TAB PO SCH ×2 (10:54→20:24)
[2017-01-28] MEDS: Atorvastatin Calcium 10 MG TAB PO SCH (10:54)
--- NOTE | 2017-01-28 12:03 | PDOC.EVN ---
Event Note - Event Note Event Note: pt went into svt again at time of d/c will ekg f/u dr chappell's plan for d/c
--- NOTE | 2017-01-28 14:16 | DIS ---
DATE OF ADMISSION: 01/23/2017 DATE OF DISCHARGE: 01/28/2017 DISCHARGE DIAGNOSES: 1. Acute on chronic congestive heart failure, mixed in nature, ejection fraction of 45%, resolved. 2. Coronary artery disease, stable. 3. Hyperlipidemia, stable. 4. Hypothyroidism, stable. 5. Hypertension, stable. 6. Acute on chronic obstructive pulmonary disease exacerbation, resolved. 7. Supraventricular tachycardia, atrial flutter in nature, status post NANCIE and ablation by Dr. Ac, stable. 8. Morbid obesity, stable. DISCHARGE MEDICATIONS: The patient's discharge medications include Medrol Dosepak, Lasix 20 mg p.o. daily, Coreg 3.125 p.o. daily, Eliquis 5 mg p.o. daily, allopurinol, aspirin, atorvastatin, gabapenti n, levothyroxine, lisinopril, naproxen, nitroglycerin, ranitidine, sertraline. BRIEF HOSPITAL COURSE: This is a 76-year-old pleasant lady who came into the emergency room for shor tness of breath. Cardiology and network architect manager evaluated her. It was a combination of COPD exacerbat ion and congestive heart failure exacerbation. For the congestive heart failure exacerbation, she wa s put on IV Lasix in which with it she improved nicely, ejection fraction was 45%. It was determined to be mixed in nature. For the COPD exacerbation, she was put on some steroids and antibiotics, she improved overall. The patient was found to have atrial flutter. Dr. Ac evaluated the patient and did a NANCIE and did ablation. She is doing much better right now. She has been in sinus for the last 24 hours in the hospital. She is right now cleared by Pulmonary and Cardiology to be discharged. S he is asked to come back to the emergency room in case symptoms recur. She is asked to follow up wit h Cardiology and Pulmonary in 2 weeks and PCP as an outpatient. She is right now medically stable to be discharged. Total time for this discharge took 35 minutes.
[2017-01-28] MEDS ORDERED: Dronedarone HCl 400 MG TAB PO SCH (14:45)
--- NOTE | 2017-01-28 15:52 | EKG ---
Test Reason : Blood Pressure : / mmHG Vent. Rate : 116 BPM Atrial Rate : 131 BPM P-R Int : 000 ms QRS Dur : 142 ms QT Int : 368 ms P-R-T Axes : 000 074 137 degrees QTc Int : 511 ms Atrial fibrillation with rapid ventricular response Left bundle branch block Abnormal ECG When compared with ECG of 27-JAN-2017 07:17, Atrial fibrillation has replaced Sinus rhythm Inverted T waves have replaced nonspecific T wave abnormality in Inferior leads Confirmed by JONEL RIVAS ([id number]) on 01/28/2017 3:51:43 PM Referred By: SHENA Confirmed By:JONEL RIVAS
[2017-01-28] MEDS: Gabapentin 100 MG CAP PO SCH (20:24)
[2017-01-28] MEDS: Allopurinol 100 MG TAB PO SCH (20:24)
[2017-01-28] MEDS: Dronedarone HCl 400 MG TAB PO SCH (20:24)
--- NOTE | 2017-01-28 21:16 | PRG ---
DATE OF SERVICE: 01/28/2017 ELECTROPHYSIOLOGY FOLLOWUP NOTE SUBJECTIVE: Ms. Hahn seems to be doing better this morning. She has dyspnea , no fever, chills, or cough. OBJECTIVE DATA: VITAL SIGNS: Blood pressure is 128/56, heart rate 75, respirations 16, oxygen saturation 98%. GENERAL: This is an alert and oriented, and morbidly obese woman, in no apparent distress. NECK: Supple. Jugular veins not distended. CHEST: Coarse without crackles. CARDIOVASCULAR: Heart sounds are regular to rate and rhythm. No murmur or gallop. ABDOMEN: Benign. Bowel sounds positive. EXTREMITIES: Lower extremity without edema, clubbing or cyanosis. DATABASE: Telemetry strips reviewed revealing sinus rhythm, occasional PVCs with left bundle branch block. ASSESSMENT: Ms. Hahn is a pleasant 76-year-old woman with history of morbid obesity, asthma, and coronary artery bypass grafting surgery. She presented with softened atrial flutter and heart failure/chronic obstructive pulmonary disease exacerbation. She underwent atrial flutter ablation yesterday after she was stabilized day before yesterday. Maintaining sinus rhythm currently. She is back on Eliquis. PLAN: 1. Regarding her atrial flutter, she is currently stable. Continue monitoring and continue Eliquis for at least a month after currently seen. 2. Left bundle branch block with prolonged HV interval. For now, no definite _ ____ bradycardia developed, she might benefit from BiV pacemaker. 3. Cardiomyopathy, moderate on echo, but mildly better on NANCIE following that 2 days ago, only mild to moderately reduced LV function seen,for now continue monitoring. If LVEF is less than 35%, she might benefit from an ICD implant. ADDENDUM: This morning at 10:00, she developed irregular heart beating again. EKG showed atypical atrial flutter, not similar to the original presentation flutter, which was cavotricuspid dependent. My plan would be at this point to start Multaq. Due to asthma, will not use amiodarone or sotalol. Multaq could be sub-optimal if it worsens her CHF, which need to be watched as well. Hence, she had negative NANCIE couple of days back and she was on Eliquis now. It is reasonable to proceed with cardioversion tomorrow with no significant chance of thromboembolic stroke. If she cannot tolerate Multaq and atrial flutter/fibrillation recurs, she could be considered for BiV ICD implant and AV reji ablation in the future. DONNA
[2017-01-29] MEDS: Levothyroxine Sodium 50 MCG TAB PO SCH (06:42)
[2017-01-29] MEDS: Mometasone/Formoterol 120 PUFF INHALER INH SCH ×2 (07:16→19:27)
--- NOTE | 2017-01-29 08:01 | PDOC.PN ---
- Subjective Encounter Start Date: 01/29/17 Encounter Start Time: 16:00 Subjective: Patient doing better after cardioversion. Feels weak but has been able -: to get up and ambulate. Would like to go home. - Objective MAR Reviewed: Yes Vital Signs & Weight: Vital Signs (12 hours) Temp Pulse Resp BP Pulse Ox 01/29/17 07:15 103 H 16 94 L 01/29/17 04:00 97.6 F 86 18 115/55 L 90 L 01/29/17 01:04 86 16 94 L 01/29/17 00:50 93 L Weight Admit Weight 267 lb 3.2 oz Weight 270 lb 2 oz Most Recent Monitor Data Heart Rate from ECG 98 NIBP 137/62 NIBP BP-Mean 76 Respiration from ECG 13 SpO2 94 I&O: 01/28/17 01/29/17 01/30/17 06:59 06:59 06:59 Intake Total 3060 2160 Output Total 3050 800 Balance 10 1360 Result Diagrams: 01/26/17 04:31 01/28/17 05:38 Phys Exam - Physical Examination Constitutional: NAD HEENT: moist MMs Respiratory: no wheezing, no rales, no rhonchi Cardiovascular: RRR, no significant murmur Gastrointestinal: soft, positive bowel sounds Neurological: non-focal, moves all 4 limbs Psychiatric: normal affect, A&O x 3 Dx/Plan (1) Atypical atrial flutter Code(s): I48.4 - ATYPICAL ATRIAL FLUTTER Status: Acute Comment: recurrence s /p ablation, cardioversion today, treat with Multaq (2) Acute exacerbation of CHF (congestive heart failure) Code(s): I50.9 - HEART FAILURE, UNSPECIFIED Status: Acute Comment: mixed ef - 45% (3) COPD (chronic obstructive pulmonary disease) Status: Chronic (4) CAD (coronary artery disease) Code(s): I25.10 - ATHSCL HEART DISEASE OF [place] CORONARY ARTERY W/O ANG PCTRS Status: Chronic (5) HTN (hypertension) Code(s): I10 - ESSENTIAL (PRIMARY) HYPERTENSION Status: Chronic (6) Hyperlipidemia Code(s): E78.5 - HYPERLIPIDEMIA, UNSPECIFIED Status: Chronic (7) Hypothyroid Code(s): E03.9 - HYPOTHYROIDISM, UNSPECIFIED Status: Chronic - Plan cont current plan of care observe on telemetry overnight. If ambulating well and no recurrence -: tomorrow can consider discharge home * . - Discharge Day Encounter end time: 16:45
[2017-01-29] MEDS ORDERED: Midazolam HCl 2 mg/2 ml Vial ONE (08:58)
[2017-01-29] MEDS ORDERED: Furosemide 20 MG TAB PO SCH (09:00)
--- NOTE | 2017-01-29 09:42 | OP ---
DATE OF PROCEDURE: 01/29/2017 PROCEDURE: Cardioversion. The patient was brought to the post-cath area in a fasting state. She was sedated by Anesthesia. Delano jones was given 50 joules direct current synchronized energy and converted to sinus rhythm, then a juncti onal rhythm, then frequent PVCs and back in atrial flutter. Gave her some additional sedation, gave her 70 joules and converted to sinus rhythm. Currently, she is in sinus rhythm, although there is pr obably a high probability she will go back into flutter. CONCLUSION: Successful cardioversion, although there is a high probability she will go into flutter. I would consider AV junction ablation with biventricular device placement if she has recurrent atri al arrhythmias.
--- NOTE | 2017-01-29 10:59 | PRG ---
DATE OF SERVICE: 01/29/2017 She is status post cardioversion. She went into SVT last night again. She had an ablation done ramandeep ier. She is denying any difficulty breathing. She is eager to go home. Once her cardiac status is stable she can probably be discharged home. PHYSICAL EXAMINATION: VITAL SIGNS: Sats are 94%, pulse was 80, blood pressure 130/80. CHEST: Chest reveals no wheezing. CARDIAC: Back in normal sinus rhythm. Normal S1, S2. IMPRESSION: 1. Supraventricular tachycardia status post ablation, status post cardioversion. 2. Chronic obstructive pulmonary disease. 3. Asthma. 4. Congestive heart failure, stable. DISPOSITION: Home when okay with Cardiology.
[2017-01-29] MEDS: Dronedarone HCl 400 MG TAB PO SCH ×2 (11:48→21:43)
[2017-01-29] MEDS: Lisinopril 10 MG TAB PO SCH (11:49)
[2017-01-29] MEDS: Apixaban 5 MG TAB PO SCH ×2 (11:49→21:43)
[2017-01-29] MEDS: predniSONE 20 MG TAB PO SCH (11:49)
[2017-01-29] MEDS: Aspirin 81 mg Enteric Coated Tablet PO SCH (11:49)
[2017-01-29] MEDS: Atorvastatin Calcium 10 MG TAB PO SCH (11:49)
[2017-01-29] MEDS: Carvedilol 3.125 MG TAB PO SCH ×2 (11:49→17:07)
--- NOTE | 2017-01-29 14:30 | PRG ---
DATE OF SERVICE: 01/29/2017 SUBJECTIVE: Ms. Hahn had recurrent atrial arrhythmias. She had left-sided atrial flutter, previo usly had a right-sided flutter ablated successfully, but this is left-sided, she had successful ablat ion into the right side, but now she has left side. The patient underwent cardioversion successfully with now in sinus rhythm. On exam, she is extremely weak. She really cannot move up in the bed without assistance, in fact a l ot of assistance. She says she is not short of breath. PHYSICAL EXAMINATION: VITAL SIGNS: Blood pressure 118/56, pulse 70. LUNGS: Clear. CARDIAC: Normal S1 and S2. EXTREMITIES: No edema. ASSESSMENT: 1. Diastolic heart failure, improved. 2. Generalized debility. 3. Status post atrial flutter ablation. 4. Left-sided successful cardioversion. 5. Left bundle branch block. PLAN: 1. She is on Eliquis. 2. Stop aspirin and worry about the bleeding risk in this patient. Eventually, when she goes off of Eliquis, we will probably put her back on aspirin. 3. Oral furosemide. 4. She is on Multaq. 5. Eliquis. 6. Hopefully home when she is strong enough to take care of herself at home. If she is recurrent, I will consider having AV junction ablation and biventricular pacing.
[2017-01-29] MEDS: Gabapentin 100 MG CAP PO SCH (21:43)
[2017-01-29] MEDS: Allopurinol 100 MG TAB PO SCH (21:43)
[2017-01-30 05:16] LABS: Hematocrit 46.1 % (36.0-47.0)
[2017-01-30] MEDS: Levothyroxine Sodium 50 MCG TAB PO SCH (06:26)
[2017-01-30] MEDS: Mometasone/Formoterol 120 PUFF INHALER INH SCH (06:46)
--- NOTE | 2017-01-30 08:26 | PDOC.PN ---
- Subjective Encounter Start Date: 01/30/17 Encounter Start Time: 10:30 Subjective: Patient weak, but able to ambulate well. Has walker and oxygen at home. -: Ready to go home. - Objective MAR Reviewed: Yes Vital Signs & Weight: Vital Signs (12 hours) Temp Pulse Resp BP Pulse Ox 01/30/17 08:00 98.2 F 72 16 93 L 01/30/17 06:46 72 16 96 01/30/17 04:00 98.7 F 68 18 110/54 L 92 L 01/30/17 00:22 92 L 01/29/17 23:48 98.9 F 63 20 112/50 L 91 L Weight Admit Weight 267 lb 3.2 oz Weight 270 lb 2 oz Most Recent Monitor Data Heart Rate from ECG 98 NIBP 137/62 NIBP BP-Mean 76 Respiration from ECG 13 SpO2 94 I&O: 01/29/17 01/30/17 01/31/17 06:59 06:59 06:59 Intake Total 2760 1510 Output Total 1350 1950 Balance 1410 -440 Result Diagrams: 01/30/17 04:41 01/30/17 04:41 EKG Reviewed by me: Yes (tele with SR, no recurrent arrhythmia) Phys Exam - Physical Examination Constitutional: NAD HEENT: moist MMs Respiratory: no wheezing, no rales, no rhonchi Cardiovascular: RRR, no significant murmur Gastrointestinal: soft, positive bowel sounds Neurological: non-focal, moves all 4 limbs Psychiatric: normal affect, A&O x 3 Dx/Plan (1) Atypical atrial flutter Code(s): I48.4 - ATYPICAL ATRIAL FLUTTER Status: Acute Comment: recurrence s /p ablation, cardioversion yesterday, treat with Multaq, no further recurrence (2) Acute exacerbation of CHF (congestive heart failure) Code(s): I50.9 - HEART FAILURE, UNSPECIFIED Status: Acute Comment: mixed ef - 45% (3) COPD (chronic obstructive pulmonary disease) Status: Chronic (4) CAD (coronary artery disease) Code(s): I25.10 - ATHSCL HEART DISEASE OF [place] CORONARY ARTERY W/O ANG PCTRS Status: Chronic (5) HTN (hypertension) Code(s): I10 - ESSENTIAL (PRIMARY) HYPERTENSION Status: Chronic (6) Hyperlipidemia Code(s): E78.5 - HYPERLIPIDEMIA, UNSPECIFIED Status: Chronic (7) Hypothyroid Code(s): E03.9 - HYPOTHYROIDISM, UNSPECIFIED Status: Chronic - Plan D/C home if ok with cardiology. * . - Discharge Day Encounter end time: 10:50
[2017-01-30] MEDS: Apixaban 5 MG TAB PO SCH (09:29)
[2017-01-30] MEDS: Atorvastatin Calcium 10 MG TAB PO SCH (09:29)
[2017-01-30] MEDS: predniSONE 20 MG TAB PO SCH (09:29)
[2017-01-30] MEDS: Dronedarone HCl 400 MG TAB PO SCH (09:29)
[2017-01-30] MEDS: Furosemide 20 MG TAB PO SCH ×2 (09:29→14:42)
[2017-01-30] MEDS: Carvedilol 3.125 MG TAB PO SCH (09:30)
[2017-01-30] MEDS: Lisinopril 10 MG TAB PO SCH (10:31)
[2017-01-30 11:58] VITALS: TEMP 98
--- NOTE | 2017-01-30 12:01 | DIS ---
PRIMARY CARE PHYSICIAN: [facility]. DIAGNOSES ON ADMISSION: 1. Acute exacerbation of chronic obstructive pulmonary disease. 2. Congestive heart failure exacerbation, acute on chronic. 3. Shortness of breath. DIAGNOSES ON DISCHARGE: 1. Acute on chronic congestive heart failure, mixed in nature, exacerbation resolved. 2. Supraventricular tachycardia, atrial flutter/atrial fibrillation, status post ablation by Dr. Mario gaines with recurrence, status post cardioversion. 3. Coronary artery disease. 4. Chronic obstructive pulmonary disease exacerbation, resolved. 5. Hypertension. 6. Hyperlipidemia. 7. Hypothyroidism. PROCEDURES PERFORMED: 1. CTA of the chest and thorax showing mild congestive heart failure and no pulmonary embolism. 2. Cardiac catheterization with ablation. 3. Transesophageal echocardiogram showing no intracardiac clots, mild reduced systolic function of 4 5% to 50%. 4. Synchronized cardioversion. CONSULTATIONS: 1. Pulmonology, Dr. Ayon. 2. Cardiology, Dr. Gonzalez for Dr. Cintron. 3. Electrophysiology, Dr. Ac. SUMMARY OF HOSPITAL COURSE: Please see previous discharge summary from 01/28/2017. The patient cary claros had her ablation done and was doing well and was going to be discharged; however, before she wa s able to be discharged, she went back into atrial fibrillation/flutter that was symptomatic. The ronnie coppola was kept in the hospital. Dr. Cintron reevaluated and brought her back for synchronized cardiov ersion, this was successful and she has remained in sinus rhythm for the past over 24 hours. The naomi salmon is ambulating well and eager to go home. DISCHARGE MANAGEMENT: Discharged home. DISCHARGE FOLLOWUP: Follow up with Dr. Cintron in 14 days; with Dr. Stoll in 14 days; with cardiac kristopher abilitation and with Dr. Horton on the . DISCHARGE ACTIVITY: As tolerated. DISCHARGE DIET: Fluid restricted healthy heart, low sodium diet and she is to continue her home oxyg en. DISCHARGE MEDICATIONS: 1. Eliquis 5 mg twice a day. 2. Coreg 3.125 mg twice a day. 3. Multaq 400 mg twice a day. 4. Furosemide 20 mg daily. 5. Lisinopril 10 mg daily. 6. Methylprednisolone 4 mg Dosepak. 7. Levothyroxine 250 mcg daily. 8. Zoloft 100 mg daily. 9. Aspirin 325 mg daily. 10. Atorvastatin 10 mg daily. 11. Ranitidine 75 mg daily. 12. Gabapentin 100 mg daily. 13. Naproxen 250 mg daily. 14. Nitroglycerin as needed. 15. Allopurinol 100 mg daily.
--- NOTE | 2017-01-30 14:18 | PDOC.CTH ---
Cardiology Progress Note - Subjective no new issues or complaints. She has been walking with PT. - Objective Vital Signs Temp Pulse Resp BP BP BP Pulse Ox 01/30/17 12:30 71 16 95 01/30/17 11:20 98 F 76 18 107/53 L 95 01/30/17 10:31 105/52 L 01/30/17 08:00 98.2 F 70 17 105/52 L 92 L 01/30/17 06:46 72 16 96 01/30/17 04:00 98.7 F 68 18 110/54 L 92 L Admit Weight 267 lb 3.2 oz Weight 270 lb 2 oz 01/29/17 01/30/17 01/31/17 06:59 06:59 06:59 Intake Total 2760 1510 120 Output Total 1350 1950 500 Balance 1410 -440 -380 - Physical Examination General/Neuro: alert & oriented x3, NAD Neck: no JVD present Lungs: unlabored respirations Heart: RRR Abdomen: NT/ND Extremities: + edema B (1+) - Telemetry Telemetry Rhythm: NSR - Labs Result Diagrams: 01/30/17 04:41 01/30/17 04:41 Troponin/CKMB CK-MB (CK-2) 3.3 ng/mL (0-6.6) 01/22/17 20:30 Troponin I 0.091 ng/mL (< 0.028) H 01/23/17 17:39 - Assessment/Plan 1. Diastolic heart failure 2. Aflutter s/p ablation and now DCCV. 3. LBBB PLAN: - Remains in sinus. - june d/c home. - Follow up with Dr. Cintron as scheduled
[2017-01-30 16:19] VITALS: BP 131/62
--- NOTE | 2017-02-01 10:55 | PQF ---
NAYELY BARNES DAMODHARAN [id number] [facility]-286 [id number] CLINICAL DOCUMENTATION CLARIFICATION FORM: POST DISCHARGE Addendum to original discharge summary date: ____ Late entry note date: __ NAYELY BARNES [id number] [place] [facility] YOUR INPUT IS NEEDED TO CORRECTLY CODE A DIAGNOSIS FOR YOUR PATIENT. DATE: 02/01/2017 ATTN: DR. KOHLER Please exercise your independent, professional judgment in responding to the clarification form. Clinical indicators are provided on the bottom of this form for your review Please check appropriate box(s) to clarify if the following diagnosis has been ruled in our ruled out: RESPIRATORY FAILURE (CDI/Coding list diagnosis here) [ ] Ruled in diagnosis [ ] Continue to treat [ ] Resolved [ ] Ruled out diagnosis [ ] Cannot rule out diagnosis [ ] Other diagnosis [ ] Unable to determine ( ) ACUTE RESPIRATORY FAILURE WITH HYPOXIA ( ) ACUTE RESPIRATORY FAILURE WITHOUT HYPOXIA In addition, please specify: Present on Admission (POA): [ ] Yes [ ] No [ ] Unable to determine For continuity of documentation, please document condition throughout progress notes and discharge summary. Thank You. CLINICAL INDICATORS - SIGNS / SYMPTOMS / LABS ER - RESP 28, O2 SAT 91, ON 2L OXYGEN, WHEEZING, SOB H&P - SOB, 2L OXYGEN COPD EXACERBATION / PN - RESPIRATORY FAILURE, RESP 20, SAT 92 ON 4L DS - COPD EXACERBATION CHF ACUTE ON CHRONIC RISK FACTORS COPD CHF 2L OXYGEN WHEEZING TREATMENTS NEB OXYGEN (This form is maintained as a part of the permanent medical record) 2014 [employer] All Rights Reserved Mireille Barrow CCS, LOGISTICS PROJECT MANAGER-H [email or web address] [phone] DONNA
== END 2017-01-30 14:43 | disposition home or self-care (01) | DRG 273 ==
LOC: ERS 20:13 → CCU 01-23 00:02 → 2NO 01-23 10:53
PROVIDERS: ADMIT Family Medicine; ATTEND Family Medicine
PROC: B24BZZ4 Ultrasonography of Heart with Aorta, Transesophageal (ICD-10-PCS; 2017-01-26)
PROC: 02583ZZ Destruction of Conduction Mechanism, Percutaneous Approach (ICD-10-PCS; 2017-01-28)
PROC: 4A023FZ Measurement of Cardiac Rhythm, Percutaneous Approach (ICD-10-PCS; 2017-01-28)
PROC: 4A0234Z Measurement of Cardiac Electrical Activity, Percutaneous Approach (ICD-10-PCS; 2017-01-28)
PROC: 02K83ZZ Map Conduction Mechanism, Percutaneous Approach (ICD-10-PCS; 2017-01-28)
PROC: 5A2204Z Restoration of Cardiac Rhythm, Single (ICD-10-PCS; principal; 2017-01-29)
DX: I48.4 Atypical atrial flutter (principal); I50.43 Acute on chronic combined systolic (congestive) and diastolic (congestive) heart failure; J96.90 Respiratory failure, unspecified, unspecified whether with hypoxia or hypercapnia; J44.1 Chronic obstructive pulmonary disease with (acute) exacerbation; Z68.42 Body mass index [BMI] 45.0-49.9, adult; Z99.81 Dependence on supplemental oxygen; I44.7 Left bundle-branch block, unspecified; I11.0 Hypertensive heart disease with heart failure; I47.1 Supraventricular tachycardia; I48.91 Unspecified atrial fibrillation; I25.10 Atherosclerotic heart disease of native coronary artery without angina pectoris; E78.5 Hyperlipidemia, unspecified; E03.9 Hypothyroidism, unspecified; E66.01 Morbid (severe) obesity due to excess calories; I25.5 Ischemic cardiomyopathy; E87.6 Hypokalemia; Z87.891 Personal history of nicotine dependence
CPT/HCPCS: 36415; 71010; 71275; 76942; 80048; 80053; 80069; 81001; 82553; 82565; 83735; 83880; 84484; 85014; 85018; 85025; 85049; 87040; 87086; 92960; 93005; 93010; 93306; 93312; 93613; 93623; 93653; 93798; 94640; 96374; 96375; A4216; C1730; C1769; J0456; J1265; J1644; J1650; J1940; J2250; J2270; J2405; J2704; J2920; J2930; J3010; J7050; J7506; J7611; J7620

== ENCOUNTER 2018-05-24 15:44 | Observation (INO) | payer MEDICARE, OTHER ==
[2018-05-24] MEDS ORDERED: cloNIDine 0.1 MG TAB PO PRN (17:54)
[2018-05-24] MEDS ORDERED: Senokot S 8.6-50 MG TAB PO PRN (17:54)
[2018-05-24] MEDS ORDERED: Diabetic Tussin 200 MG/10 ML UDCUP PO PRN (17:54)
[2018-05-24] MEDS ORDERED: Bisacodyl 5 MG TAB PO PRN (17:54)
[2018-05-24] MEDS ORDERED: Nitroglycerin 0.4 MG TAB (25 Tab Bottle) PO PRN (17:54)
[2018-05-24] MEDS ORDERED: Ondansetron PF 4 MG/2 ML Vial IVP PRN (17:54)
[2018-05-24] MEDS ORDERED: Benzonatate 100 MG CAP PO PRN (17:54)
[2018-05-24] MEDS ORDERED: hydrALAZINE 20 MG/ML VIAL SLOW IVP PRN (17:54)
--- NOTE | 2018-05-24 19:34 | RAD ---
FEXAM: 2 views left forearm PROVIDED CLINICAL HISTORY: Pain FINDINGS: There is no evidence for fracture or other acute osseous abnormality. Alignment appears anatomic. Lucila nt spaces appear preserved. IMPRESSION: No evidence for an acute osseous abnormality. If there is persistent clinical concern, conservative m anagement and follow-up imaging advised.
--- NOTE | 2018-05-24 19:34 | RAD ---
FEXAM: 3 views left shoulder PROVIDED CLINICAL HISTORY: Pain FINDINGS: There is no evidence for fracture or other acute osseous abnormality. Alignment appears anatomic. Lucila nt spaces appear preserved. IMPRESSION: No evidence for an acute osseous abnormality. If there is persistent clinical concern, conservative m anagement and follow-up imaging advised.
--- NOTE | 2018-05-24 19:36 | HP ---
PRIMARY CARE PHYSICIAN: Dr. Vaibhav Sherman. CHIEF COMPLAINT: Chest pain. HISTORY OF PRESENTING ILLNESS: Ms. Hahn is a very pleasant 77-year-old female with past medical history of atrial flutter and fibrillation, status post ablation and then cardioversion in January 2017, as well as history of chronic diastolic congestive heart failure, coronary artery disease, COPD, hypertension, and dyslipidemia, who presented to the ER with the above-mentioned complaint. History is mainly obtained by the patient herself. Electronic medical records were reviewed. She was last admitted to our facility in January 2017, at which time she underwent ablation for atrial flutter, which she failed and then underwent a cardioversion at the same admission. Her medical safety director is Dr. Cintron. She was seen in his office earlier this year. She reports no recent illnesses. She does report that about 2 weeks ago she got entangled with the dog's leash and she fell. She hurt her left arm and she has noted bruises and knots in her arm and forearm since then. She has been also experiencing some pain in her left arm. She, however, reports that about 2 weeks ago when she was lying on her right side and watching TV, she had an episode of significant chest pain. She thought it was gas, but it did not go away. She had to take one after another two nitroglycerins and eventually the pain resolved. Today, she was on a motorized scooter at [facility] when she had similar symptoms again. She was actually in the line of pharmacy to get her nitroglycerin refill. She called out to the pharmacist who gave her the nitroglycerin tablet and EMS was called. She was brought into the emergency room at the outside facility. She denies any recent illnesses. She denies any edema, shortness of breath on walking, or any other new symptoms. No dizziness or lightheadedness. No orthopnea or PND. No dysuria, frequency, or urgency. No diarrhea or constipation. Upon presentation to the emergency room in outside ER, she was hemodynamically stable with a blood pressure of 134/67. EKG showed old left bundle-branch block. Cardiac enzymes were done and were negative. Chest x-ray was negative for any acute changes. She was transferred to our facility for further evaluation. In our emergency stroma, she has remained stable and repeat troponin is still negative. She is now being admitted for further evaluation and care and rule out ACS. She reports that it has been few years since she has had a cardiac catheterization. PAST MEDICAL HISTORY: 1. Chronic diastolic congestive heart failure. 2. Coronary artery disease. 3. Hypothyroidism. 4. Hypertension. 5. Dyslipidemia. 6. Chronic home oxygen. 7. COPD. 8. History of atrial flutter, status post ablation and then DC cardioversion in January 2017. 9. A [id number] smoking history, currently not smoking. PAST SURGICAL HISTORY: 1. History of bypass graft x4 vessel. 2. Hernia implant. 3. Bilateral knee surgery. 4. Bilateral carpal tunnel. 5. Cholecystectomy. 6. Tonsillectomy. ALLERGIES: NO KNOWN MEDICATION ALLERGIES. SOCIAL HISTORY: She lives alone and is independent with her ADLs and IADLs. She has no history of drug or alcohol abuse. FAMILY HISTORY: No significant family history of coronary artery disease or stroke. REVIEW OF SYSTEMS: A 14-point review of systems is done. It is negative except for those mentioned in the history and physical. CODE STATUS: Do not resuscitate or intubate. Discussed in detail with the patient. HOME MEDICATIONS: They further need to be clarified, but according to the ER records, she is on followin. Eliquis 5 mg b.i.d. This has been confirmed with the patient. 2. Aldactone 25 mg daily. 3. Lipitor 40 mg daily. 4. Potassium chloride 8 mEq daily. 5. Isosorbide dinitrate 40 mg daily. 6. Carvedilol 3.125 b.i.d. 7. Levothyroxine 200 mcg daily. 8. Multaq 400 mg b.i.d. 9. Ranitidine 150 mg b.i.d. 10. Zoloft 100 mg daily. 11. Torsemide 20 mg b.i.d. 12. Lasix 40 mg daily. LABORATORY DATA: Her CBC shows WBCs at 11.8, platelet count of 269, and hemoglobin 15.2. Serum chemistries show BUN of 24, otherwise unremarkable. BNP is normal at 115. Troponin less than 0.010 x2. Chest x-ray by my review has no evidence of pleural effusion, edema, or infiltrate. A 12-lead EKG shows old left bundle-branch block without any acute ST or T-wave changes. She has normal sinus rhythm. PHYSICAL EXAMINATION: VITAL SIGNS: Upon presentation, pulse of 71, respirations 16, saturating 91% on room air, temperature 98.5, and most recent blood pressure 144/64. GENERAL: She is comfortably sitting up in the chair and is very pleasant, awake, alert, oriented, making jokes. She is in no acute distress and appears healthy. HEENT: Mucous membrane is moist and pink. No oropharyngeal exudate or erythema. Head is normocephalic and atraumatic. Pupils are equal and reactive to light and accommodation. Extraocular movement intact. NECK: Supple without any lymphadenopathy, JVD, or bruit. CHEST: Clear to auscultation without any wheezing, rales, or rhonchi. HEART: Rate and rhythm are regular without any murmurs, rubs, or gallops. ABDOMEN: Soft, nontender, and nondistended. Positive bowel sounds. EXTREMITIES: Free of any cyanosis, clubbing, or edema. NEUROLOGIC: Nonfocal. SKIN: Free of any rashes or bruises. Feels warm and dry to touch. MUSCULOSKELETAL: She does have some bruises in her left upper arm and some knots in her left forearm as well as upper arm and tenderness to palpation. PSYCHIATRIC: Normal affect. IMPRESSION AND PLAN: 1. Chest pain. The patient has had 2 episodes of chest pain relieved by nitroglycerin. She has history of coronary artery disease and it is highly suspicious for anginal-like symptoms. We will admit the patient to telemetry and obtain a nuclear medicine stress test for now. Continue to trend serial cardiac enzymes and continue high-dose aspirin as well as statin and beta blockers. We will request consultation with her medical safety director, Dr. Cintron, in the morning. She most likely will require cardiac catheterization to assess her bypass status. 2. Hypertension, currently controlled. We will restart her home medications once confirmed. 3. History of atrial flutter, status post ablation in 2017. She is in sinus rhythm for now. We will restart her Multaq and Eliquis once the dosage is confirmed. Restart beta-keith as well. Her heart rate is controlled. 4. Chronic diastolic congestive heart failure. The patient's last echocardiogram was done in January 2017, which shows poorly defined structures and moderately diminished ejection fraction with dilatation of left atrium and moderate mitral regurgitation. She most likely has combined systolic and diastolic congestive heart failure. Currently, she is asymptomatic. We will restart her home medications including diuretics and monitor renal function and electrolytes. 5. Dyslipidemia. Restart statin. 6. Hypothyroidism. Restart levothyroxine. 7. Deep venous thrombosis and gastrointestinal prophylaxis. The patient is on Eliquis. We will hold any other form of pharmacological DVT prophylaxis. 8. Code status: Do not resuscitate or intubate as above. DISPOSITION: Ms. Hahn is currently being admitted to the hospital under observation status. Further management will depend upon her clinical course. Job ID: [id number]
--- NOTE | 2018-05-24 19:36 | RAD ---
FEXAM: Left wrist radiographs 3 views PROVIDED CLINICAL HISTORY: Pain COMPARISON: None FINDINGS: Negative ulnar variance is noted. Calcific densities are seen projecting dorsal and volar aspects of the carpus on the lateral view presumably reflecting chondrocalcinosis. No definite evidence for frac ture or other acute osseous abnormality. If there is persistent clinical concern, conservative manage ment and follow-up imaging advised. IMPRESSION: As above.
--- NOTE | 2018-05-24 19:36 | RAD ---
FEXAM: Left clavicle radiographs 2 views PROVIDED CLINICAL HISTORY: Pain FINDINGS: There is no evidence for fracture or other acute osseous abnormality. Alignment appears anatomic. Lucila nt spaces appear preserved. IMPRESSION: No evidence for an acute osseous abnormality. If there is persistent clinical concern, conservative m anagement and follow-up imaging advised.
--- NOTE | 2018-05-24 19:37 | RAD ---
FEXAM: 2 views left elbow PROVIDED CLINICAL HISTORY: Pain FINDINGS: There is no evidence for fracture or other acute osseous abnormality. Alignment appears anatomic. Lucila nt spaces appear preserved. Osteophyte formation is seen about the elbow. IMPRESSION: No evidence for an acute osseous abnormality. If there is persistent clinical concern, conservative m anagement and follow-up imaging advised.
[2018-05-24 19:51] VITALS: BMI 44.2
[2018-05-24 20:00] LABS: Troponin I Less than 0.010 ng/mL (< 0.028)
[2018-05-24] MEDS: Acetaminophen 500 MG TAB PO PRN (20:55)
[2018-05-24] MEDS: Apixaban 5 MG TAB PO SCH (20:55)
[2018-05-24 22:55] LABS: Troponin I 0.016 ng/mL (< 0.028)
[2018-05-25 06:28] LABS: Hemoglobin 15.5 g/dL (12.0-16.0); Platelet Count 278 thou/uL (130-400)
[2018-05-25 06:53] LABS: Cardiac Risk 2.9 (Less than 4.5)
[2018-05-25] MEDS ORDERED: Regadenoson 0.4 MG/5 ML SYRINGE ONE (08:47)
[2018-05-25] MEDS: Apixaban 5 MG TAB PO SCH (08:57)
[2018-05-25] MEDS: Carvedilol 3.125 MG TAB PO SCH ×2 (08:57→17:11)
[2018-05-25] MEDS: Aspirin 325 mg Enteric Coated Tablet PO SCH ×2 (08:57→12:12)
[2018-05-25] MEDS ORDERED: Enoxaparin Sodium 40 MG/0.4 ML SYRINGE SC SCH (09:00)
--- NOTE | 2018-05-25 10:39 | CON ---
DATE OF CONSULTATION: HISTORY OF PRESENT ILLNESS: The patient is a 77-year-old woman, who presents with recurrent chest discomfort. The patient has a history of coronary artery bypass graft surgery. In 2006, she underwent coronary artery bypass graft surgery x4. She subsequently underwent a followup cardiac catheterization, which revealed one occluded coronary artery bypass graft. The patient has been doing well until recently when she had an episode of midsternal chest discomfort. This resolved with 2 nitroglycerin tablets. The patient was doing well until yesterday when she had another episode where she developed midsternal chest discomfort. The pain did not radiate. It was not associated with diaphoresis or dyspnea. It resolved with two nitroglycerin tablets. The patient denies having any present discomfort. PAST MEDICAL HISTORY: 1. Coronary artery bypass graft surgery. 2. Hypertension. 3. Dyslipidemia. 4. COPD. 5. Hypothyroidism. 6. History of atrial flutter, status post ablation. PAST SURGICAL HISTORY: Coronary artery bypass graft surgery. hernia surgery, knee surgery, carpal tunnel surgery, cholecystectomy, and tonsillectomy. ALLERGIES: MORPHINE. SOCIAL HISTORY: Nonsmoker. FAMILY HISTORY: Positive family history of heart disease. Father had a myocardial infarction. MEDICATIONS: 1. Eliquis 5 b.i.d. 2. Aldactone 25 daily. 3. Lipitor 40 at bedtime. 4. Lasix 40 daily. 5. Potassium 8 daily. 6. Isosorbide dinitrate 40 daily. 7. Coreg 3.125 b.i.d. 8. Synthroid 200 mcg daily. 9. Multaq 400 b.i.d. 10. Zantac 150 daily. 11. Zoloft 100 daily. 12. Furosemide 25 b.i.d. REVIEW OF SYSTEMS: Ten-point system, otherwise unremarkable. PHYSICAL EXAMINATION: GENERAL: Obese woman, in no acute distress. VITAL SIGNS: Blood pressure of 157/65. NECK: Showed no jugular venous distention. LUNGS: Clear to auscultation. HEART: Regular rate and rhythm. Normal S1 and S2. No murmurs. ABDOMEN: Distended. EXTREMITIES: Showed trace edema. VASCULAR: Radial pulses 2+. LABORATORY DATA: Her white blood cell count was 11.8, hemoglobin 15.2, hematocrit 50.0, and platelets 269. Sodium was 140, potassium 4.4, chloride 99, bicarbonate 27, BUN 24, and creatinine 1.04. Troponin less than 0.01. Her BNP was 115. IMAGING DATA: Her EKG revealed her to have normal sinus rhythm with a left bundle-branch block. IMPRESSION: 1. Unstable angina. 2. History of coronary artery bypass graft surgery. 3. Hypertension. 4. Dyslipidemia. 5. Chronic obstructive pulmonary disease. PLAN: This patient presents with unstable angina. The patient is undergoing a stress test. We will hold the patient's apixaban depending on the amount of ischemia whether the patient will be treated medically. We would increase the dose of her Imdur. We will follow this patient with you through her hospitalization. Job ID: [id number] MTDD
[2018-05-25 12:39] LABS: #Eosinphils 0.2 thou/uL (0.0-0.7); #Lymphocytes 1.6 thou/uL (1.20-3.40); #Monocytes 0.9 thou/uL (0.11-0.59); #Neutrophils 6.7 thou/uL (1.40-6.50); %Basophils 0.3 % (0.0-1.0); %Eosinophils 2.1 % (0.0-10.0); %Lymphocytes 17.2 % (21.0-51.0); %Neutrophils 71.4 % (42.0-75.0); Hemoglobin 14.4 g/dL (12.0-16.0); Mean Corpuscular HGB CONC 30.7 g/dL (32.0-36.0); Mean Corpuscular Hemoglobin 25.6 pg (27.0-31.0); Mean Corpuscular Volume 83.4 fL (78.0-98.0); Mean Platelet Volume 8.9 fL (7.4-10.4); Platelet Count 284 thou/uL (130-400); RBC Distribution Width 18.4 % (11.5-14.5); Red Blood Cell (RBC) Count 5.61 mill/uL (4.20-5.40); White Blood Cell (WBC) Count 9.4 thou/uL (4.8-10.8)
[2018-05-25 12:57] LABS: Anion Gap 11 mmol/L (10-20); BUN (Urea Nitrogen) 19 mg/dL (9.8-20.1); Calc. Creatinine Clearance 95 mL/min (70-130); Calcium 9.9 mg/dL (7.8-10.44); Carbon Dioxide 34 mmol/L (23-31); Chloride 102 mmol/L (98-107); Estimated GFR-MDRD 60; Glucose 118 mg/dL (83-110); Sodium 143 mmol/L (136-145)
[2018-05-25] MEDS: Dronedarone HCl 400 MG TAB PO SCH (17:11)
[2018-05-25] MEDS: Acetaminophen 500 MG TAB PO PRN (20:09)
[2018-05-25] MEDS ORDERED: Lisinopril 10 MG TAB PO SCH (21:00)
[2018-05-25] MEDS ORDERED: Atorvastatin Calcium 40 MG TAB PO SCH (21:00)
--- NOTE | 2018-05-25 21:40 | PDOC.PN ---
- Subjective Encounter Start Date: 05/25/18 Encounter Start Time: 10:30 Subjective: pt up in bed complains of some pain to her left wrist - Objective Resuscitation Status - Order Detail: 05/24/18 18:51 Resuscitation Status Routine Resuscitation Status: DNAR: NO Resuscitation Discussed with: discussed with pt in detail Vital Signs & Weight: Vital Signs (12 hours) Temp Pulse Resp BP BP Pulse Ox 05/25/18 20:09 122/60 05/25/18 18:41 98.1 F 57 L 16 122/60 92 L 05/25/18 15:16 96.7 F L 70 16 127/59 L 93 L 05/25/18 11:10 98.6 F 69 18 143/23 H 95 Weight Weight 249 lb 14.4 oz I&O: 05/24/18 05/25/18 05/26/18 06:59 06:59 06:59 Intake Total 600 960 Output Total 400 Balance 600 560 Result Diagrams: 05/25/18 12:23 05/25/18 12:23 Phys Exam - Physical Examination Neck: no nodes, no JVD, supple, full ROM Respiratory: no wheezing, no rales, no rhonchi, wheezing present, clear to auscultation bilateral Cardiovascular: RRR, no significant murmur, no rub, gallop, irregular Gastrointestinal: soft, non-tender, no distention, positive bowel sounds left wrist and arm have bruising from her fall Neurological: non-focal, normal sensation, moves all 4 limbs Dx/Plan (1) Chest pain Code(s): R07.9 - CHEST PAIN, UNSPECIFIED Status: Acute (2) Left wrist pain Code(s): M25.532 - PAIN IN LEFT WRIST Status: Acute (3) HTN (hypertension) Code(s): I10 - ESSENTIAL (PRIMARY) HYPERTENSION Status: Chronic (4) Hyperlipidemia Code(s): E78.5 - HYPERLIPIDEMIA, UNSPECIFIED Status: Chronic - Plan pt to undergo stress test by cardiology. -: Reviewed all of pt's left limb xrays, no FX -: recommend ROM exercises, may consider outpatient PT -: pt's pain according to her is improving. * . Review of Systems - Review of Systems Respiratory: negative: Cough, Dry, Shortness of Breath, Hemoptysis, SOB with Excertion, Pleuritic Pain, Sputum, Wheezing Cardiovascular: negative: chest pain, palpitations, orthopnea, paroxysmal nocturnal dyspnea, edema, light headedness, other Gastrointestinal: negative: Nausea, Vomiting, Abdominal Pain, Diarrhea, Constipation, Melena, Hematochezia, Other Genitourinary: negative: Dysuria, Frequency, Incontinence, Hematuria, Retention , Other Musculoskeletal: Hand Pain - Medications/Allergies Allergies/Adverse Reactions: Allergies Allergy/AdvReac Type Severity Reaction Status Date / Time No Known Allergies Allergy Verified 01/23/17 00:13 Medications: Current Medications Acetaminophen (Tylenol) 1,000 mg PO Q6H PRN PRN Reason: Mild Pain (1-3) Last Admin: 05/25/18 20:09 Dose: 1,000 mg Aspirin (Ecotrin) 325 mg PO DAILY [facility] Last Admin: 05/25/18 12:12 Dose: 325 mg Atorvastatin Calcium (Lipitor) 40 mg PO [facility] Last Admin: 05/25/18 20:09 Dose: 40 mg Benzonatate (Tessalon) 100 mg PO Q6H PRN PRN Reason: Cough Bisacodyl (Dulcolax) 10 mg PO DAILYPRN PRN PRN Reason: Constipation [facility]) [facility] Last Admin: 05/25/18 17:11 Dose: 3.125 mg Clonidine (Catapres) 0.1 mg PO Q4H PRN PRN Reason: SBP > 160____ Dronedarone (Multaq) 400 [facility] Last Admin: 05/25/18 17:11 Dose: 400 mg Guaifenesin (Robitussin Sf) 200 mg PO Q4H PRN PRN Reason: Cough Hydralazine HCl (Apresoline) 10 mg SLOW IVP Q4H PRN PRN Reason: SBP > 180 and HR < 70 Isosorbide Mononitrate (Imdur) 60 mg PO DAILY [facility] Lisinopril (Zestril) 10 mg PO [facility] Last Admin: 05/25/18 20:09 Dose: 10 mg Nitroglycerin (Nitrostat) 0.4 mg PO Q5MIN PRN PRN Reason: Chest Pain Ondansetron HCl (Zofran) 4 mg IVP Q6H PRN PRN Reason: Nausea/Vomiting Senna/Docusate Sodium (Senokot S) 2 tab PO BID PRN PRN Reason: Constipation Sodium Chloride (Flush - Normal Saline) 10 ml IVF Q12HR [facility] Last Admin: 05/25/18 20:09 Dose: 10 ml Spironolactone (Aldactone) 25 mg PO QAM-WM JUSTINO
[2018-05-26] MEDS: Acetaminophen 500 MG TAB PO PRN (05:04)
[2018-05-26 05:27] LABS: #Eosinphils 0.3 thou/uL (0.0-0.7); #Monocytes 0.9 thou/uL (0.11-0.59); %Basophils 0.5 % (0.0-1.0); %Eosinophils 3.3 % (0.0-10.0); %Lymphocytes 21.8 % (21.0-51.0); %Monocytes 10.1 % (0.0-10.0); %Neutrophils 64.3 % (42.0-75.0); Hemoglobin 13.1 g/dL (12.0-16.0); Mean Corpuscular HGB CONC 28.9 g/dL (32.0-36.0); Mean Corpuscular Hemoglobin 24.5 pg (27.0-31.0); Mean Corpuscular Volume 84.8 fL (78.0-98.0); Mean Platelet Volume 9.1 fL (7.4-10.4); Platelet Count 261 thou/uL (130-400); RBC Distribution Width 18.1 % (11.5-14.5); Red Blood Cell (RBC) Count 5.34 mill/uL (4.20-5.40); White Blood Cell (WBC) Count 9.3 thou/uL (4.8-10.8)
[2018-05-26 05:43] LABS: Anion Gap 12 mmol/L (10-20); BUN (Urea Nitrogen) 21 mg/dL (9.8-20.1); Calc. Creatinine Clearance 94 mL/min (70-130); Calcium 9.4 mg/dL (7.8-10.44); Carbon Dioxide 30 mmol/L (23-31); Chloride 101 mmol/L (98-107); Estimated GFR-MDRD 59; Glucose 114 mg/dL (83-110); Potassium 3.8 mmol/L (3.5-5.1); Sodium 139 mmol/L (136-145)
[2018-05-26] MEDS ORDERED: Spironolactone 25 MG TAB PO SCH (08:00)
--- NOTE | 2018-05-26 10:16 | NM ---
FEXAM:Myocardial perfusion scan with SPECT imaging. HISTORY: Chest pain COMPARISON: None FINDINGS:Examination was performed using 32.5 mCi of 90 9M technetium sestamibi on the stress and 30. 7 mCi on the resting images. There is some mild apical thinning not changed between the stress and rest imaging. No signs of ische emmie. Wall motion: There is a generalized hypokinesis of the left ventricle. Left ventricular ejection fraction: The calculated left ventricular ejection fraction was 37%. IMPRESSION:No evidence of ischemic change. Global hypokinesis and a diminished left ventricular eject ion fraction of 37.
[2018-05-26] MEDS: Carvedilol 3.125 MG TAB PO SCH (10:20)
[2018-05-26] MEDS: Dronedarone HCl 400 MG TAB PO SCH (10:20)
[2018-05-26] MEDS: Aspirin 325 mg Enteric Coated Tablet PO SCH (10:20)
[2018-05-26 11:57] VITALS: BP 118/55; TEMP 97.6
--- NOTE | 2018-05-26 15:17 | PRG ---
DATE OF SERVICE: 05/26/2018 SUBJECTIVE: Ms. Hahn is feeling better. She has no recurrent chest pain. The pain she had on admission was substernal. The stress test did not show any ischemia, did show the ejection fraction is diminished. There is a global hypokinesis. Therefore, we will put her on Entresto. She will be taken off lisinopril. She got a dose of that last night. She will start the Entresto on Wednesday. Also give her Protonix 40 mg a day for 30 days in case that was esophageal reflux in origin. Other pertinent laboratory: LDL cholesterol was 75, potassium was 3.8, BUN was 21, creatinine 0.93. She will have a basic metabolic panel in 3 weeks. Job ID: [id number]
[2018-05-26] MEDS ORDERED: Sacubitril 24.5 MG/Valsartan 25.5 MG TABLET PO SCH (21:00)
--- NOTE | 2018-05-27 05:50 | DIS ---
DATE OF ADMISSION: 05/24/2018 DATE OF DISCHARGE: 05/26/2018 ADMITTING DIAGNOSES: Chest pain, coronary artery disease, hypothyroidism, hypertension, dyslipidemia, chronic obstructive pulmonary disease, history of atrial flutter, and morbid obesity. DISCHARGE DIAGNOSES: Chest pain, noncardiac in nature, acute coronary syndrome ruled out, hypertension, hyperlipidemia, hypothyroidism, obesity, chronic obstructive pulmonary disease and sleep apnea. HOSPITAL COURSE: This is a 77-year-old female who presented with chest pain, was also having some pain in her clavicle and forearm. The patient had clavicle, elbow, forearm, shoulder, and wrist x-rays done during her stay here. The patient was also evaluated by Internal Medicine and Cardiology. The patient had cardiac workup done, which showed negative enzymes x3. The patient also had a lipid panel done, which was normal. Her blood work also was normal. The patient had a nuclear stress test done, which showed no reversible defects. The patient was cleared from Internal Medicine in a cardiac perspective prior to discharge. Advised to pursue significant weight loss of about 150 pounds and significant dietary changes as she has had a history of bypass, has hypertension, diabetes, and is severely overweight with a BMI of 45. The patient stated that she would change her dietary plans and follow up with her PCP and Cardiology at point in time of discharge in 1 to 2 weeks. DIET: Low-fat, low-calorie, high-fiber diet. CONDITION: Stable. PROGNOSIS: Good. ACTIVITY: As tolerated with assistance as needed. HOME MEDICATIONS: See MAR. FOLLOWUP: Follow up with PCP and Cardiology 1 to 2 weeks. Case and plan discussed with the patient at length. She understood and agreed with this plan. Job ID: [id number]
[2018-05-27] MEDS ORDERED: Pantoprazole 40 MG GRANULES PACKET PO SCH (09:00)
[2018-05-29] MEDS ORDERED: Sacubitril 24.5 MG/Valsartan 25.5 MG TABLET PO SCH (09:00)
== END 2018-05-26 15:02 | disposition home or self-care (01) ==
LOC: ERS 15:44 → 2SW 18:50
PROVIDERS: ADMIT Internal Medicine; ATTEND Internal Medicine
DX: R07.89 Other chest pain (principal); I11.0 Hypertensive heart disease with heart failure; I50.32 Chronic diastolic (congestive) heart failure; E78.5 Hyperlipidemia, unspecified; E03.9 Hypothyroidism, unspecified; J44.9 Chronic obstructive pulmonary disease, unspecified; I48.92 Unspecified atrial flutter; I48.91 Unspecified atrial fibrillation; I25.110 Atherosclerotic heart disease of native coronary artery with unstable angina pectoris; G47.30 Sleep apnea, unspecified; Z99.81 Dependence on supplemental oxygen; Z87.891 Personal history of nicotine dependence; Z95.1 Presence of aortocoronary bypass graft; Z90.49 Acquired absence of other specified parts of digestive tract; Z90.89 Acquired absence of other organs; Z79.01 Long term (current) use of anticoagulants; Z79.82 Long term (current) use of aspirin; Z79.52 Long term (current) use of systemic steroids; Z79.899 Other long term (current) drug therapy; Z98.890 Other specified postprocedural states
CPT/HCPCS: 73000; 73030; 73070; 73090; 73110; 78452; 80048 ×2; 80061; 82565; 84484; 85014; 85018; 85025 ×2; 85049; 93005; 93017; 94760 ×2; 97139 ×2; 99285; A9500; G0378 ×2; 36415; J2785

== ENCOUNTER 2019-01-24 18:12 | Inpatient (IN) | payer MEDICARE, OTHER ==
[2019-01-24 19:04] LABS: #Eosinphils 0.2 thou/uL (0.0-0.7); #Lymphocytes 1.4 thou/uL (1.20-3.40); #Monocytes 0.9 thou/uL (0.11-0.59); #Neutrophils 9.1 thou/uL (1.40-6.50); %Basophils 0.2 % (0.0-1.0); %Eosinophils 1.4 % (0.0-10.0); %Lymphocytes 12.3 % (21.0-51.0); %Monocytes 7.8 % (0.0-10.0); %Neutrophils 78.3 % (42.0-75.0); Hemoglobin 9.2 g/dL (12.0-16.0); Mean Corpuscular HGB CONC 31.1 g/dL (32.0-36.0); Mean Corpuscular Hemoglobin 24.9 pg (27.0-31.0); Mean Corpuscular Volume 80.2 fL (78.0-98.0); Mean Platelet Volume 10.7 fL (7.4-10.4); Platelet Count 257 thou/uL (130-400); RBC Distribution Width 19.4 % (11.5-14.5); Red Blood Cell (RBC) Count 3.71 mill/uL (4.20-5.40); White Blood Cell (WBC) Count 11.6 thou/uL (4.8-10.8)
[2019-01-24 19:17] LABS: Bilirubin Negative (Negative); Blood, Urine Negative (Negative); Clarity Turbid (Clear); Glucose, Urine (Dipstick) Normal (Negative); Leukocyte 500 Leu/uL (Negative); Nitrite Negative (Negative); Protein, Urine (Dipstick) Negative (Neg-Trace); RBC/HPF 0-3 HPF (0-3); Renal Epithelial 0-3 HPF (None Seen); Squamous Epithelial 0-3 HPF (0-3); Transitional Epithelial 0-3 HPF (None Seen); Urobilinogen Normal mg/dL (Less than 2)
[2019-01-24] MEDS ORDERED: Piperacillin/Tazobactam 4.5 GM VIAL ONE (19:24)
[2019-01-24] MEDS ORDERED: Norepinephrine 8 MG in Dextrose 5% in Water 242 ML IVPB PRN (19:25)
[2019-01-24 19:26] LABS: ALT (SGPT) 8 U/L (8-55); AST (SGOT) 9 U/L (5-34); Albumin 3.6 g/dL (3.4-4.8); Alkaline Phosphatase 95 U/L (40-110); Anion Gap 13 mmol/L (10-20); BUN (Urea Nitrogen) 84 mg/dL (9.8-20.1); Bilirubin, Total 0.4 mg/dL (0.2-1.2); CK (CPK) 43 U/L (29-168); Calc. Creatinine Clearance 0 mL/min (70-130); Calcium 8.3 mg/dL (7.8-10.44); Carbon Dioxide 23 mmol/L (23-31); Chloride 107 mmol/L (98-107); Estimated GFR-MDRD 9; Globulin 2.5 g/dL (2.4-3.5); Glucose 99 mg/dL (83-110); Lipase 17 U/L (8-78); Potassium 4.8 mmol/L (3.5-5.1); Protein, Total 6.1 g/dL (6.0-8.3); Sodium 138 mmol/L (136-145)
[2019-01-24 19:26] LABS: Bacteria/HPF None Seen HPF (None Seen); WBC/HPF 0-3 HPF (0-3)
[2019-01-24] MEDS ORDERED: metroNIDAZOLE 500 MG/100 ML BAG ONE (19:49)
[2019-01-24] MEDS ORDERED: Dexamethasone 10 MG/ML VIAL ONE (19:49)
--- NOTE | 2019-01-24 20:13 | RAD ---
Exam: Chest one view HISTORY:Cough Comparison: 05/24/2018 FINDINGS: Cardiac silhouette:Upper normal cardiac silhouette. Lines and tubes: Left-sided internal jugular central venous catheter with the distal tip in the expec praful region of the superior vena cava. Sternotomy wires are noted. Aorta: Unremarkable Pulmonary vessels: Normal Costophrenic angles: Clear LUNGS: Patchy interstitial opacities superimposed upon chronic change. Pneumothorax: None Osseous abnormalities: None IMPRESSION: Patchy interstitial opacity due to edema or infiltrate, superimposed upon chronic change.
[2019-01-24] MEDS ORDERED: Enoxaparin Sodium 60 MG/0.6 ML SYRINGE ONE (21:27)
[2019-01-24] MEDS ORDERED: Senokot S 8.6-50 MG TAB PO PRN (22:40)
[2019-01-24] MEDS ORDERED: Bisacodyl 5 MG TAB PO PRN (22:40)
[2019-01-24] MEDS ORDERED: HYDROcodone/Acetaminophen 7.5/325 mg Tablet PO PRN (22:40)
[2019-01-24] MEDS ORDERED: Morphine 2 MG/ML SYRINGE SLOW IVP PRN (22:42)
[2019-01-24] MEDS ORDERED: CCU Electrolyte Replacement 1 EACH FS SCH (22:43)
[2019-01-24] MEDS ORDERED: Sodium Chloride 0.9% 1,000 ML IV SCH (22:45)
--- NOTE | 2019-01-24 23:27 | RAD ---
Exam: 2 views lumbar spine HISTORY: Sudden onset pain COMPARISON: None FINDINGS: There appear to be 5 lumbar type vertebrae. There appears to be vacuum disc phenomenon at L3-L4 and L 4-L5. Facet hypertrophy at L4-L5 and L5-S1 suspected. No obvious spondylolisthesis or obvious spondylolysis. Visualized sacrum and bony pelvis is unremarkable. There are degenerative changes in b oth hips. Atherosclerosis of the aorta is noted Lateral projection is suboptimal IMPRESSION: There is suggestion multilevel degenerative change. Further evaluation with lumbar spine MRI, if clin ically warranted. Transcribed Date/Time: 01/24/2019 11:48 PM
--- NOTE | 2019-01-24 23:28 | RAD ---
Exam: 5 views cervical spine COMPARISON: 12/04/2014 HISTORY: Sudden onset pain. Decreased sensation the extremities FINDINGS: On the AP projection, no malalignment. Suboptimal evaluation of the odontoid process on the base of s kull and open-mouth views. Suboptimal evaluation the cervical spine on the swimmer's view and crosstable lateral view. Visualized cervical vertebral body heights appear to be maintained without o bvious fracture. No significant loss of disc space height at C2-C3, C3-C4. Mild to moderate loss of disc space height at C4-C5. The remainder the cervical spine cannot be adequately assessed. Visualize d prevertebral soft tissue structures are unremarkable IMPRESSION: Incomplete evaluation the cervical spine. Further evaluation with MRI if clinically warranted. Transcribed Date/Time: 01/24/2019 11:47 PM
[2019-01-24] MEDS ORDERED: Potassium Chloride 40 MEQ in Sodium Chloride 0.9% 250 ML 250 ML IVPB PRN (23:52)
[2019-01-24] MEDS ORDERED: Potassium Chloride 40 MEQ in Premix Bag 1 BAG IVPB PRN (23:52)
[2019-01-24] MEDS ORDERED: Magnesium Oxide 400 MG TAB PO PRN ×2 (23:52)
[2019-01-24] MEDS ORDERED: CCU ELECTROLYTE REPLACEMENT PROTOCOL FS PRN (23:52)
[2019-01-24] MEDS ORDERED: Potassium Phosphate 15 MMOL in Sodium Chloride 0.9% 250 ML 250 ML IV PRN (23:52)
[2019-01-24] MEDS ORDERED: Magnesium 2 GM/50 ML 2 GM in Premix Bag 1 BAG IVPB PRN (23:52)
[2019-01-24] MEDS ORDERED: Potassium Chloride 20 MEQ TAB PO PRN (23:52)
[2019-01-24] MEDS ORDERED: PHOS-NAK 1 PKT PACK PO PRN ×2 (23:52)
[2019-01-24] MEDS ORDERED: Potassium Phosphate 9 MMOL in Sodium Chloride 0.9% 100 ML IVPB PRN (23:52)
[2019-01-24] MEDS ORDERED: Potassium Phosphate 12 MMOL in Sodium Chloride 0.9% 250 ML 250 ML IV PRN (23:52)
[2019-01-25] MEDS ORDERED: Lidocaine 4% Cream 5 GM TUBE w/ Tegaderm TOP SCH (00:30)
[2019-01-25] MEDS: cefTRIAXone\\ROCEPHIN 1 GM in Sodium Chloride 0.9% 100 ML IVPB SCH ×2 (00:53→23:12)
[2019-01-25] MEDS: Sodium Chloride 0.9% 1,000 ML IV SCH ×2 (00:55→14:09)
[2019-01-25] MEDS: Azithromycin 500 MG in Sodium Chloride 0.9% 250 ML 250 ML IVPB SCH (01:31)
[2019-01-25] MEDS ORDERED: Levothyroxine 150 MCG TAB ONE (06:05)
[2019-01-25] MEDS ORDERED: Levothyroxine Sodium 100 MCG TAB ONE (06:05)
[2019-01-25] MEDS ORDERED: Non-Formulary Item 1 EACH (Ranitidine Hcl [Acid Reducer] 75 MG) PO SCH (09:00)
--- NOTE | 2019-01-25 11:41 | HP ---
CHIEF COMPLAINT: Hypotension and lower extremity weakness. HISTORY OF PRESENT ILLNESS: The patient is a very pleasant 78-year-old female with a past medical history of AFib, CAD, hypertension who presents to the hospital with complaints of lower extremity pain, back pain, and hypotension. The patient states that she was in the shower when her legs gave out and at this time, she called EMS. When the EMS arrived, she was found to be significantly hypotensive and she was resuscitated with IV hydration. The patient states that about the week before Thanksgiving, she has been having chronically lower back pain, going down to her lower extremities. She has been having lower extremity weakness, especially the right greater than left. She went to her PCP who told her that she had a pinched nerve. She has an appointment with her pain management doctor, however, she cannot get in until next year. The patient states that she has been taking only Tylenol Regular for pain and it has not been really helping her. She has not been able to move around very much and has been only moving a little bit at home. She is unable to stand adequately to prepare meals for her or even get some water. The patient states that she has not been eating or drinking well for the past few days; however, she has been taking all her medications as prescribed. PAST MEDICAL HISTORY: 1. She has a history of heart failure, I believe it is diastolic. 2. Coronary artery disease. 3. Hyperlipidemia. 4. Hypertension. 5. Hypercholesterolemia. 6. AFib. SURGICAL HISTORY: She has had a hernia repair, bilateral knee surgeries, and carpal tunnel surgery. She has had a bypass. She has had cholecystectomy and a tonsillectomy. SOCIAL HISTORY: She denies any alcohol use, drug use, or smoking history. She is a former smoker. She lives at home alone and she is a full code. REVIEW OF SYSTEMS: All negative except for the ones mentioned above in the HPI. FAMILY HISTORY: No history of heart disease or cancer. ALLERGIES: SHE HAS NO KNOWN DRUG ALLERGIES. MEDICATIONS: I do not currently have the list of medications that is in the computer and I am unable to obtain as the computers are not working. PHYSICAL EXAMINATION: VITAL SIGNS: Temperature upon my evaluation was 98.8, heart rate was 98, blood pressure was 113/60. She is 99% on 2 L. GENERAL: She is awake, alert, and oriented x3. She is in no apparent distress. HEENT: Normocephalic, atraumatic. No lymphadenopathy noted. Pupils are equal and reactive to light. CV: S1 and S2 are positive. No murmurs, rubs, or gallops. LUNGS: Mild rhonchi to bilateral upper lungs area, otherwise normal. ABDOMEN: Soft, nontender. Bowel sounds are present x2. EXTREMITIES: She has no pedal edema. Pedal pulses are present x2. NEUROVASCULAR: She does have some weakness in her right leg, greater than the left. Sensation is intact bilaterally. Her sphincter tone is intact. She is able to lift her left lower extremity; however, the right, she has difficulty lifting it. No tenderness upon palpation of her thoracic spine; however, tenderness on palpation of cervical and lumbar spine and also of the right hip area. LABORATORY RESULTS: Again, I am unable to obtain that since my computer system is not working. ASSESSMENT AND PLAN: The patient is a very pleasant 78-year-old female who presents to the hospital with complaints of lower extremity weakness and also hypotension. 1. Hypotension, most likely secondary to dehydration. Initially, she was admitted to the ER for possible severe sepsis and she was put on Levophed; however, after fluid resuscitation and just a minimal dose of Levophed, she improved dramatically and her Levophed was turned off upon arriving into the ICU. We will monitor her output. We will hold her antihypertensives. I will just prophylactically treat her with ceftriaxone and azithromycin. 2. Acute kidney injury. Her creatinine is around 4. Her baseline creatinine a few months ago was like 1.5 or 1.9. Again, I do not have the accurate numbers since my computer system is not working. I will check a renal ultrasound. We will do an input and output monitoring carefully, hold nephrotoxins, and continue to monitor. 3. Some shortness of breath. We will hold off on any steroids. We will continue neb treatments and will continue ceftriaxone and azithromycin. 4. Lower extremity weakness. Again, the patient has significant claustrophobia and she is unable to have an MRI or a CAT scan without being under anesthesia. I have ordered some x-rays. The x-ray is recommended and MRI for further evaluation. I would get a neurosurgical consult; however, that will require me doing imaging and the patient is very adamant that she is very claustrophobic and she will not undergo an MRI or a CT scan unless she has been sedated. However, this is not something acute; this has been going on for the past couple weeks. I will start her on some pain medication and get Physical Therapy to evaluate her, that may actually help her pain. She will require rehabilitation. 5. Deep vein thrombosis prophylaxis. We will put the patient on heparin subcu. She is currently on Eliquis; however, given her creatinine of 4, I would hold it for now. She may require either heparin or may be Coumadin for anticoagulation. Job ID: [id number]
[2019-01-25] MEDS: Levothyroxine Sodium 100 MCG TAB PO SCH (14:00)
[2019-01-25] MEDS: Atorvastatin Calcium 10 MG TAB PO SCH (14:07)
[2019-01-25] MEDS: Levothyroxine Sodium 50 MCG TAB PO SCH (14:07)
[2019-01-25] MEDS: Famotidine/PF 20 mg/2ml Vial SLOW IVP SCH (14:08)
--- NOTE | 2019-01-25 14:10 | CON ---
DATE OF CONSULTATION: 01/25/2019 REASON FOR CONSULTATION: Renal failure, history of congestive heart failure, history of atrial fibrillation. HISTORY OF PRESENT ILLNESS: Ms. Na Hahn is a 78-year-old woman with history of congestive heart failure. She has had a history of diastolic heart failure, and at one time had mixed systolic diastolic. She was admitted with severe weakness and was found to have renal failure and she has been admitted to the hospital. No chest pain. MEDICATIONS: The patient states she is very unsure about her medicines. She said "I just don't really know, I'm on so many different medicines." She thinks she was no longer taking the apixaban. She is not sure if she is taking naproxen, or other medicines, she is not sure about at all. In our most recent office note, she was not listed as being on Entresto, she was on Benicar, but she is very confused about her medicines that she just does not know. ALLERGIES: NONE KNOWN. PAST HISTORY: 1. History of congestive heart failure, systolic and diastolic, but the most recent ejection fraction was normal. 2. History of atrial fibrillation. SOCIAL HISTORY: She has a friend who looks in on her and was able to help her get help to come to the hospital by calling the ambulance. No alcohol or tobacco abuse. PHYSICAL EXAMINATION: GENERAL: This is a pleasant patient, in no distress. VITAL SIGNS: Blood pressure currently is 142/56 and pulse is in the 70s. LUNGS: Clear. CARDIAC: Normal S1 and normal S2. ABDOMEN: Obese and nontender. EXTREMITIES: No clubbing or cyanosis. There is mild edema. PERTINENT LABORATORY DATA: Her hemoglobin is 9.2. Creatinine is 4.8. BNP 398. Chest x-ray, patchy interstitial opacity due to edema or infiltrate. ASSESSMENT: 1. Renal failure, probably related to medications and possibly volume depletion. 2. Unfortunately, the patient does not know what medicines she is taking. 3. History of congestive heart failure, systolic and diastolic, the most recent ejection fraction was normal at that point it was diastolic heart failure. 4. History of normal stress test last spring. 5. Heart catheterization done in 2007 revealed she had previous bypass surgery, the results were left main diffusely diseased, no focal obstruction, LAD diffuse disease proximal with a patent internal mammary graft to LAD. Patent graft to diagonal. Circumflex, small, diffusely diseased system, the graft in that area had occluded, very small area. Right coronary artery, patent vein graft. PLAN: 1. The plan will be to give intravenous fluids as you are doing. 2. Try to figure out what medicines she was taking at home. It is very confusing, she does not know. I would be glad to follow with you. EKG not yet available to me. We will review that. Job ID: [id number] MTDD
--- NOTE | 2019-01-25 14:26 | ULT ---
RENAL ULTRASOUND: INDICATIONS: History of acute renal injury. FINDINGS: The left kidney measures 10.1 x 5.2 x 5.2 cm. The right kidney measures 9.1 x 5.2 x 5.2 cm. The left renal cortical thickness is approximately 1.2 cm. The right renal cortical thickness is approximately 1.1 cm. The visualized bladder is moderately distended and has a pre-void bladder volume of 1013.6 mL. IMPRESSION: 1. Bilateral renal cortical thinning, likely related to underlying chronic medical renal disease. 2. Moderate distention of the bladder. POS: OFF
[2019-01-25 15:29] LABS: Anion Gap 14 mmol/L (10-20); BUN (Urea Nitrogen) 76 mg/dL (9.8-20.1); Calc. Creatinine Clearance 24 mL/min (70-130); Calcium 8.9 mg/dL (7.8-10.44); Carbon Dioxide 22 mmol/L (23-31); Chloride 109 mmol/L (98-107); Estimated GFR-MDRD 12; Glucose 136 mg/dL (83-110); Potassium 4.9 mmol/L (3.5-5.1); Sodium 140 mmol/L (136-145)
[2019-01-25 16:11] LABS: #Monocytes 0.1 thou/uL (0.11-0.59); #Neutrophils 6.4 thou/uL (1.40-6.50); %Basophils 0.2 % (0.0-1.0); %Eosinophils 0.2 % (0.0-10.0); %Lymphocytes 13.6 % (21.0-51.0); %Monocytes 1.2 % (0.0-10.0); %Neutrophils 84.7 % (42.0-75.0); Mean Corpuscular HGB CONC 29.8 g/dL (32.0-36.0); Mean Corpuscular Hemoglobin 24.5 pg (27.0-31.0); Mean Platelet Volume 10.5 fL (7.4-10.4); Platelet Count 259 thou/uL (130-400); RBC Distribution Width 19.4 % (11.5-14.5); Red Blood Cell (RBC) Count 4.07 mill/uL (4.20-5.40); White Blood Cell (WBC) Count 7.5 thou/uL (4.8-10.8)
--- NOTE | 2019-01-25 17:38 | PDOC.HOSPP ---
- Subjective Encounter Date: 01/25/19 Encounter Time: 10:00 Subjective: Ms. Hahn was seen today in follow-up of acute renal failure and dehydration. She is feeling better with theexception of her right leg. She notes pain on minimal movement. - Objective Vital Signs & Weight: Vital Signs (12 hours) Temp Pulse Pulse Resp BP BP Pulse Ox 01/25/19 14:54 98 01/25/19 14:30 98.3 F 87 18 145/70 H 98 01/25/19 13:35 80 18 01/25/19 12:46 74 20 99 01/25/19 10:46 83 117/57 L 01/25/19 06:00 99 Pulse Ox 01/25/19 14:54 01/25/19 14:30 01/25/19 13:35 01/25/19 12:46 01/25/19 10:46 100 01/25/19 06:00 Weight Weight 261 lb 0.437 oz Most Recent Monitor Data Heart Rate from ECG 86 NIBP 130/68 NIBP BP-Mean 88 Respiration from ECG 19 SpO2 100 I&O: 01/24/19 01/25/19 01/26/19 06:59 06:59 06:59 Intake Total 100 Balance 100 Result Diagrams: 01/25/19 06:30 01/25/19 03:30 Hospitalist ROS - Medication Medications: Active Medications Generic Name Dose Route Start Last Admin Trade Name Freq PRN Reason Stop Dose Admin Albuterol/Ipratropium 3 ml 01/25/19 01:00 01/25/19 13:35 Duoneb NEB 3 ml [id number] JUSTINO Administration Atorvastatin Calcium 10 mg 01/25/19 09:00 01/25/19 14:07 Lipitor PO Not Given DAILY [facility]INO Famotidine 20 mg 01/25/19 09:00 01/25/19 14:08 Pepcid SLOW IVP Not Given QAM JUSTINO Sodium Chloride 1,000 mls @ 75 mls/hr 01/24/19 22:45 01/25/19 14:09 Normal Saline 0.9% IV Not Given .[id number] JUSTINO Azithromycin 500 mg/ Sodium 250 mls @ 250 mls/hr 01/24/19 23:59 01/25/19 01: 31 Chloride IVPB 250 mls Q24HR JUSTINO Administration Ceftriaxone Sodium 1 gm/ 100 mls @ 200 mls/hr 01/24/19 23:59 01/25/19 00:53 Sodium Chloride IVPB 100 mls Q24HR JUSTINO Administration Levothyroxine Sodium 200 mcg 01/25/19 06:00 01/25/19 14:00 Synthroid PO Not Given 0600 JUSTINO Levothyroxine Sodium 50 mcg 01/25/19 06:00 01/25/19 14:07 Synthroid PO Not Given 0600 JUSTINO Pantoprazole Sodium 40 mg 01/25/19 09:00 01/25/19 14:08 Protonix PO Not Given DAILY [facility] Sertraline HCl 200 mg 01/25/19 09:00 01/25/19 14:08 Zoloft PO Not Given DAILY [facility] Sodium Chloride 10 ml 01/25/19 09:00 01/25/19 14:08 Flush - Normal Saline IVF Not Given Q12HR JUSTINO - Exam Eye: PERRL Heart: RRR, no murmur, no gallops, no rubs, normal peripheral pulses Respiratory: CTAB, no wheezes, no rales, no ronchi, normal chest expansion, no tachypnea, normal percussion Gastrointestinal: soft, non-tender, non-distended, normal bowel sounds, no palpable masses, no hepatomegaly Extremities: no cyanosis, no clubbing, no edema Musculoskeletal: no muscle wasting (+ straight leg raise on the right to about 15 degrees) Hosp A/P (1) Acute kidney injury Code(s): N17.9 - ACUTE KIDNEY FAILURE, UNSPECIFIED Status: Acute (2) Urinary retention Code(s): R33.9 - RETENTION OF URINE, UNSPECIFIED Status: Acute (3) CAD (coronary artery disease) Code(s): I25.10 - ATHSCL HEART DISEASE OF LIME CORONARY ARTERY W/O ANG PCTRS Status: Chronic (4) HTN (hypertension) Code(s): I10 - ESSENTIAL (PRIMARY) HYPERTENSION Status: Chronic (5) Lumbar radiculopathy, acute Code(s): M54.16 - RADICULOPATHY, LUMBAR REGION Status: Acute - Plan * Acute kidney injury- this is likely due to a combination of pre-renal azotemia , and obstructive uropathy from urinary retention * Will continue IV hydration * Continue Ramirez catheter * Lumbar Radiculopathy- this appears to be relatively severe- and will need MRI of the lumbar Spine- but she says it will need to be done with anesthesia, due to her severe claustrophobia- will try to get this arranged tomorrow * HTN- her blood pressure has recovered * She can be moved out of the ICU
[2019-01-25] MEDS: Allopurinol 100 MG TAB PO SCH (20:48)
[2019-01-25] MEDS: Gabapentin 100 MG CAP PO SCH (20:48)
[2019-01-26] MEDS: Azithromycin 500 MG in Sodium Chloride 0.9% 250 ML 250 ML IVPB SCH (00:38)
[2019-01-26] MEDS: Sodium Chloride 0.9% 1,000 ML IV SCH (01:03)
[2019-01-26] MEDS ORDERED: Mag-Al 1200 mg/1200 mg/30 ML UDCUP PO PRN (03:46)
[2019-01-26] MEDS ORDERED: Lorazepam 2 MG/ML VIAL SLOW IVP SCH (05:45)
[2019-01-26] MEDS: Levothyroxine Sodium 100 MCG TAB PO SCH (06:17)
[2019-01-26 06:18] LABS: Actual Bicarbonate (HCO3a) 19.7 mEq/L (22-28); Base Excess (BEa) -8.5 mEq/L (-2.0 to +3.0); CO2 Tension 52.4 mmHg (35.0-45.0); Calcium, Ionized 1.25 mmol/L (1.12-1.30); Carboxyhemoglobin (COHb) 1.3 gm% (0.0-3.0); Hemoglobin (Hb) 11.4 g/dL (12.0-16.0); Potassium - ABG Lab 4.57 mmol/L (3.70-5.30)
[2019-01-26] MEDS: Levothyroxine Sodium 50 MCG TAB PO SCH (06:18)
[2019-01-26] MEDS ORDERED: Furosemide 40 MG/4 ML VIAL ONE (06:19)
[2019-01-26 06:20] LABS: pH, Arterial 7.19 (7.35-7.45)
[2019-01-26 06:21] LABS: O2 Tension (PaO2) 56.9 mmHg (> 70.0); Puncture Site LRA
[2019-01-26] MEDS ORDERED: Midazolam HCl 2 mg/2 ml Vial ONE (07:24)
[2019-01-26] MEDS ORDERED: Midazolam HCl 2 mg/2 ml Vial SLOW IVP SCH (07:45)
--- NOTE | 2019-01-26 07:45 | RAD ---
Chest AP view INDICATION: Hypoxia COMPARISON: January 24, 2019 FINDINGS: Lungs:Bilateral perihilar interstitial and airspace opacities persist Cardiac silhouette:Cardiomegaly is stable Pulmonary vasculature:Vascular congestion persists. Pleural spaces:Small bilateral pleural effusions Upper abdomen:No abnormality seen. Osseous structures: No acute osseous abnormality. Additional findings:Left IJ central venous catheter is unchanged. Midline sternotomy changes are stab le. IMPRESSION: Stable CHF
[2019-01-26] MEDS ORDERED: Morphine 2 MG/ML SYRINGE SLOW IVP PRN (08:41)
[2019-01-26] MEDS ORDERED: Propofol BOLUS 1,000 MG/100 ML VIAL IV PRN (08:41)
[2019-01-26] MEDS ORDERED: DISCONTINUE PREVIOUS NARCOTIC PAIN MEDICATIONS AND BENZODIAZEPINES FS SCH (08:41)
[2019-01-26] MEDS ORDERED: Fentanyl BOLUS 250 ML IVPB PRN (08:41)
[2019-01-26] MEDS ORDERED: fentaNYL Citrate/PF 2,000 MCG in Sodium Chloride 0.9% 60 ML IV SCH (08:41)
[2019-01-26 08:49] LABS: Actual Bicarbonate (HCO3a) 19.5 mEq/L (22-28); Base Excess (BEa) -6.8 mEq/L (-2.0 to +3.0); CO2 Tension 42.1 mmHg (35.0-45.0); Calcium, Ionized 1.19 mmol/L (1.12-1.30); Hemoglobin (Hb) 9.9 g/dL (12.0-16.0); O2 Tension (PaO2) 83.5 mmHg (> 70.0); Potassium - ABG Lab 4.26 mmol/L (3.70-5.30); pH, Arterial 7.28 (7.35-7.45)
[2019-01-26 08:54] LABS: ALV-art Gradient 149.075 (0-20); Puncture Site RB
--- NOTE | 2019-01-26 09:02 | PDOC.HOSPP ---
- Subjective Encounter Date: 01/26/19 Encounter Time: 09:01 Subjective: Ms. Hahn was seen today in follow-up of respiratory failure, and acute renal failure. She decompensated on the floor, went into respiratory distress. She was intubated, and moved to the ICU. She is currently sedated. - Objective Vital Signs & Weight: Vital Signs (12 hours) Temp Temp Pulse Pulse Pulse Pulse Resp 01/26/19 07:30 130 H 26 H 01/26/19 07:20 130 H 23 H 01/26/19 07:19 129 H 01/26/19 06:57 98.0 F 138 H 136 H 134 H 01/26/19 06:40 141 H 01/26/19 06:30 147 H 30 H 01/26/19 05:35 122 H 28 H 01/26/19 04:26 98.0 F 89 17 01/26/19 01:13 75 16 01/26/19 00:32 98.0 F 75 18 Resp Resp Resp BP BP BP BP 01/26/19 07:30 141/81 H 01/26/19 07:20 01/26/19 07:19 01/26/19 06:57 32 H 30 H 30 H 161/82 H 132/64 01/26/19 06:40 01/26/19 06:30 01/26/19 05:35 01/26/19 04:26 159/67 H 01/26/19 01:13 01/26/19 00:32 146/70 H Pulse Ox Pulse Ox Pulse Ox Pulse Ox 01/26/19 07:30 97 01/26/19 07:20 97 01/26/19 07:19 01/26/19 06:57 84 L 94 L 97 01/26/19 06:40 01/26/19 06:30 97 01/26/19 05:35 01/26/19 04:26 93 L 01/26/19 01:13 91 L 01/26/19 00:32 92 L Weight Weight 261 lb 0.437 oz Most Recent Monitor Data Heart Rate from ECG 132 NIBP 117/63 NIBP BP-Mean 81 Respiration from ECG 24 SpO2 97 I&O: 01/25/19 01/26/19 01/27/19 06:59 06:59 06:59 Intake Total 100 360 Balance 100 360 Result Diagrams: 01/26/19 06:14 01/26/19 06:14 Hospitalist ROS - Medication Medications: Active Medications Generic Name Dose Route Start Last Admin Trade Name Freq PRN Reason Stop Dose Admin Al Hydroxide/Mg Hydroxide 30 ml 01/26/19 03:46 01/26/19 04:00 Maalox PO 30 ml Q6H PRN Administration Heartburn or Indigestion Allopurinol 100 mg 01/25/19 21:00 01/25/19 20:48 Zyloprim PO 100 mg HS JUSTINO Administration Atorvastatin Calcium 10 mg 01/25/19 09:00 01/25/19 14:07 Lipitor PO Not Given DAILY JUSTINO Famotidine 20 mg 01/25/19 09:00 01/25/19 14:08 Pepcid SLOW IVP Not Given QAM JUSTINO Gabapentin 100 mg 01/25/19 21:00 01/25/19 20:48 Neurontin PO 100 mg HS JUSTINO Administration Sodium Chloride 1,000 mls @ 75 mls/hr 01/24/19 22:45 01/26/19 01:03 Normal Saline 0.9% IV 1,000 mls .[id number] JUSTINO Administration Azithromycin 500 mg/ Sodium 250 mls @ 250 mls/hr 01/24/19 23:59 01/26/19 00: 38 Chloride IVPB 250 mls Q24HR JUSTINO Administration Ceftriaxone Sodium 1 gm/ 100 mls @ 200 mls/hr 01/24/19 23:59 01/25/19 23:12 Sodium Chloride IVPB 100 mls Q24HR JUSTINO Administration Levothyroxine Sodium 200 mcg 01/25/19 06:00 01/26/19 06:17 Synthroid PO Not Given 0600 JUSTINO Levothyroxine Sodium 50 mcg 01/25/19 06:00 01/26/19 06:18 Synthroid PO Not Given 0600 JUSTINO Sertraline HCl 200 mg 01/25/19 09:00 01/25/19 14:08 Zoloft PO Not Given DAILY JUSTINO Sodium Chloride 10 ml 01/25/19 09:00 01/25/19 20:49 Flush - Normal Saline IVF Not Given Q12HR JUSTINO - Exam Eye: PERRL Heart: RRR, no murmur, no gallops, no rubs, normal peripheral pulses Respiratory: CTAB (with some mild basilar rales, and coarse breath sounds), rales Gastrointestinal: soft, non-tender, non-distended, normal bowel sounds, no palpable masses, no hepatomegaly Extremities: no cyanosis, no clubbing, no edema Hosp A/P (1) Acute kidney injury Code(s): N17.9 - ACUTE KIDNEY FAILURE, UNSPECIFIED Status: Acute (2) Urinary retention Code(s): R33.9 - RETENTION OF URINE, UNSPECIFIED Status: Acute (3) CAD (coronary artery disease) Code(s): I25.10 - ATHSCL HEART DISEASE OF [place] CORONARY ARTERY W/O ANG PCTRS Status: Chronic (4) HTN (hypertension) Code(s): I10 - ESSENTIAL (PRIMARY) HYPERTENSION Status: Chronic (5) Lumbar radiculopathy, acute Code(s): M54.16 - RADICULOPATHY, LUMBAR REGION Status: Acute - Plan * Acute respiratory failure- ? etiology- she may have become volume overloaded with hydration, She is also at risk for obesity hypoventilation due to her body habitus. Her WBC count is also elevated- will need to broaden her antibiotic coverage, and await further recommendations from PCCM * Acute kidney injury- improving- with hydration- continue Ramirez catheter- she may still require Nephrology consult * Lumbar Radiculopathy- this appears to be relatively severe- and will need MRI of the lumbar Spine- this can be done when she is clinically more stable * Hypotension- she is again hypotensive- will place her back on Levophed- will check a cortrosyn stem test in the AM * CAD- and ? CHF- in the process of reconciling her medications, and Cardiology is evaluating * Follow-up with Culture results. * Mild hypernatremia and hyperchloremia- will change fluids to LR
[2019-01-26] MEDS ORDERED: Furosemide 20 MG/2 ML VIAL SLOW IVP SCH (09:15)
[2019-01-26] MEDS ORDERED: Furosemide 40 MG/4 ML VIAL SLOW IVP SCH (09:15)
[2019-01-26 09:22] LABS: Anion Gap 18 mmol/L (10-20); BUN (Urea Nitrogen) 66 mg/dL (9.8-20.1); Calc. Creatinine Clearance 38 mL/min (70-130); Calcium 9.4 mg/dL (7.8-10.44); Carbon Dioxide 20 mmol/L (23-31); Chloride 113 mmol/L (98-107); Estimated GFR-MDRD 20; Glucose 148 mg/dL (83-110); Hemoglobin 10.7 g/dL (12.0-16.0); Mean Corpuscular HGB CONC 29.4 g/dL (32.0-36.0); Mean Corpuscular Hemoglobin 24.1 pg (27.0-31.0); Mean Platelet Volume 10.7 fL (7.4-10.4); Platelet Count 356 thou/uL (130-400); Potassium 4.7 mmol/L (3.5-5.1); RBC Distribution Width 19.9 % (11.5-14.5); Red Blood Cell (RBC) Count 4.44 mill/uL (4.20-5.40); Sodium 146 mmol/L (136-145); White Blood Cell (WBC) Count 25.9 thou/uL (4.8-10.8)
--- NOTE | 2019-01-26 09:32 | PRG ---
DATE OF SERVICE: 01/26/2019 SUBJECTIVE: Ms. Hahn had increasing respiratory distress last night, had to be sent to the intensive care unit and intubated. She is currently on the ventilator. OBJECTIVE: VITAL SIGNS: Her blood pressure 107/43, pulse looks like it is regular and sinus at 120 with a left bundle-branch block. LUNGS: Clear. CARDIAC: She is tachycardic. ABDOMEN: Obese, nontender. EXTREMITIES: Warm, dry. LABORATORY DATA: Hemoglobin is 10. Creatinine is improved to 3.76. Troponin 0.02. The chest x-ray, increased interstitial markings, especially in the left. ASSESSMENT: 1. Renal failure, improving. 2. Congestive heart failure, diastolic, likely acute on chronic. 3. Previous bypass surgery. PLAN: 1. We will go ahead and do troponin level. 2. She is getting intravenous fluid. Will probably need diuretic as well. 3. She is on steroids and antibiotics. We will follow with you. Prognosis guarded. Job ID: [id number]
--- NOTE | 2019-01-26 09:38 | PRG ---
DATE OF SERVICE: 01/26/2019 SUBJECTIVE: This morning, she was transferred from medical floor to the ICU after she became progressively obtunded on BiPAP. She is breathing 40 times a minute, pulse 130, blood pressure 141/88, afebrile. Initial blood gases showed a PO2 of 56, pCO2 of 52, pH 7.19 consistent with mixed metabolic respiratory acidosis. She is now intubated with a PO2 of 83, pCO2 of 42, pH 7.28 at a rate of 20. She is sedated. OBJECTIVE: VITAL SIGNS: Pulse 126 and irregular, saturations 96%, respiratory rate 23, blood pressure 132\76. CHEST: Decreased breath sounds. No wheezing. CARDIAC: Normal S1 and S2. No gallops. ABDOMEN: No masses. LABORATORY DATA: Creatinine is elevated to 3.7, BUN is 76. IMPRESSION: 1. Respiratory failure. 2. Diastolic dysfunction. 3. Congestive heart failure. 4. SVT. 5. Chronic obstructive pulmonary disease. 6. Sleep apnea. 7. Renal failure. PLAN: 1. Steroids, neb treatments, supportive care. IV fluids. We will follow. 2. We will try and talk to the family as they arrive. 3. One-half hour of critical time. Job ID: [id number] MTDD
[2019-01-26] MEDS ORDERED: Cosyntropin 250 MCG VIAL SLOW IVP SCH (09:45)
[2019-01-26] MEDS ORDERED: Norepinephrine 8 MG/0.9% NS 250 ML IVPB SCH (09:45)
[2019-01-26] MEDS: Atorvastatin Calcium 10 MG TAB PO SCH (09:49)
[2019-01-26] MEDS: Famotidine/PF 20 mg/2ml Vial SLOW IVP SCH (09:50)
[2019-01-26 09:53] LABS: Troponin I 0.031 ng/mL (< 0.028)
[2019-01-26 10:00] LABS: Lymphocytes 25 % (21-51); MDiff Complete? YES; Monocytes 10 % (0-10); Neutrophil 65 % (42-75); Nucleated RBC 1 % (0); RBC Morphology Normal
[2019-01-26] MEDS: Cefepime 1 GM in Sodium Chloride 0.9% 100 ML IVPB SCH ×2 (10:03→21:35)
[2019-01-26] MEDS: Propofol 1,000 MG/100 ML VIAL IV PRN ×4 (10:06→23:45)
[2019-01-26] MEDS ORDERED: Heparin 5,000 UNITS/ML VIAL SC SCH (10:15)
[2019-01-26] MEDS: Lactated Ringer's 1,000 ML IV SCH ×2 (10:34→22:19)
[2019-01-26] MEDS: Vancomycin HCl 500 MG in Sodium Chloride 0.9% 100 ML IVPB SCH (10:45)
[2019-01-26] MEDS: methylPREDNISolone Sod Succ 40 MG VIAL IVP SCH ×3 (12:43→23:32)
[2019-01-26] MEDS: Heparin 5,000 UNITS/ML VIAL SC SCH ×2 (14:54→20:11)
[2019-01-26] MEDS: Lorazepam 2 MG/ML VIAL SLOW IVP PRN ×2 (15:36→19:15)
[2019-01-26] MEDS: Acetaminophen 325 MG TAB PO PRN (19:25)
[2019-01-26] MEDS: Allopurinol 100 MG TAB PO SCH (20:11)
[2019-01-26] MEDS: Gabapentin 100 MG CAP PO SCH (20:11)
[2019-01-26] MEDS ORDERED: Vancomycin HCl 1 GM in Premix Bag 1 BAG IVPB SCH (21:00)
--- NOTE | 2019-01-27 02:08 | CON ---
DATE OF CONSULTATION: 01/26/2019 HISTORY OF PRESENT ILLNESS: Jovani is a 78-year-old female, I was consulted emergently to see her this morning. She was in respiratory distress and was obtunded. By the time I arrived to see her, she was on BiPAP and started to wake up a little bit, but given her terrible blood gas, I recommended intubation. PAST MEDICAL HISTORY: Remarkable for 1. Diastolic heart failure. 2. Coronary artery disease. 3. Hypothyroidism. 4. Hypertension. 5. Lipid disorder. 6. Chronic obstructive pulmonary disease with chronic home oxygen. 7. History of an atrial flutter ablation in the past as well as a cardioversion. 8. History of coronary artery bypass grafting x4. 9. History of herniorrhaphy. 10. History of bilateral knee surgery. 11. History of carpal tunnel surgery. 12. History of cholecystectomy and tonsillectomy. FAMILY HISTORY: Negative for vascular disease or lung disease. REVIEW OF SYSTEMS: Unobtainable. PHYSICAL EXAMINATION: VITAL SIGNS: This morning, she is afebrile. Heart rate was in the 130 to 140 range, blood pressure 160/80, respiratory rate was in the 30s. GENERAL: She would open her eyes. She would follow commands. She moved all 4 extremities equally. LUNGS: Remarkable for coarse equal breath sounds. HEART: Regular rhythm. ABDOMEN: Soft and nontender. EXTREMITIES: Without any significant asymmetry. She had trace pretibial edema. LABORATORY DATA: PH this morning 7.19, CO2 52, PO2 56. Chest x-ray done at 0614 hours this morning showed findings consistent with pulmonary edema with bilateral effusions. IMPRESSION: Respiratory failure, most likely secondary to combination of underlying obstructive lung disease and congestive heart failure. PLAN: Fiberoptic intubation. CRITICAL CARE TIME: 30 minutes independent of the procedure. Job ID: [id number] MTDD
[2019-01-27] MEDS: Lorazepam 2 MG/ML VIAL SLOW IVP PRN ×3 (03:21→12:36)
[2019-01-27] MEDS: Propofol 1,000 MG/100 ML VIAL IV PRN ×6 (04:30→23:15)
[2019-01-27] MEDS: methylPREDNISolone Sod Succ 40 MG VIAL IVP SCH ×4 (05:05→23:15)
[2019-01-27] MEDS: Levothyroxine Sodium 50 MCG TAB PO SCH (05:05)
[2019-01-27] MEDS: Levothyroxine Sodium 100 MCG TAB PO SCH (05:05)
[2019-01-27 05:12] LABS: #Lymphocytes 0.6 thou/uL (1.20-3.40); #Monocytes 0.3 thou/uL (0.11-0.59); #Neutrophils 10.4 thou/uL (1.40-6.50); %Eosinophils 0.3 % (0.0-10.0); %Lymphocytes 5.4 % (21.0-51.0); %Monocytes 2.3 % (0.0-10.0); Hemoglobin 9.6 g/dL (12.0-16.0); Mean Corpuscular HGB CONC 30.3 g/dL (32.0-36.0); Mean Corpuscular Hemoglobin 24.3 pg (27.0-31.0); Mean Corpuscular Volume 80.3 fL (78.0-98.0); Platelet Count 242 thou/uL (130-400); RBC Distribution Width 19.5 % (11.5-14.5); Red Blood Cell (RBC) Count 3.94 mill/uL (4.20-5.40); White Blood Cell (WBC) Count 11.3 thou/uL (4.8-10.8)
[2019-01-27 05:17] LABS: Actual Bicarbonate (HCO3a) 22.7 mEq/L (22-28); Base Excess (BEa) -1.1 mEq/L (-2.0 to +3.0); CO2 Tension 34.8 mmHg (35.0-45.0); Calcium, Ionized 1.25 mmol/L (1.12-1.30); Carboxyhemoglobin (COHb) 0.8 gm% (0.0-3.0); Hemoglobin (Hb) 10.3 g/dL (12.0-16.0); O2 Tension (PaO2) 73.9 mmHg (> 70.0); Potassium - ABG Lab 4.64 mmol/L (3.70-5.30); pH, Arterial 7.43 (7.35-7.45)
[2019-01-27 05:21] LABS: Anion Gap 14 mmol/L (10-20); BUN (Urea Nitrogen) 56 mg/dL (9.8-20.1); Calc. Creatinine Clearance 54 mL/min (70-130); Calcium 9.5 mg/dL (7.8-10.44); Carbon Dioxide 22 mmol/L (23-31); Chloride 116 mmol/L (98-107); Estimated GFR-MDRD 30; Glucose 141 mg/dL (83-110); Potassium 4.6 mmol/L (3.5-5.1); Sodium 147 mmol/L (136-145)
[2019-01-27 05:23] LABS: Puncture Site RBR
--- NOTE | 2019-01-27 07:58 | PRG ---
DATE OF SERVICE: 01/27/2019 SUBJECTIVE: The patient is seen and examined at the bedside. She is intubated and sedated on propofol. There was no any unexpected events overnight. She is off vasopressors. OBJECTIVE: VITAL SIGNS: Her maximal temperature is 100.6, blood pressure is 151/75, pulse is 90, respiratory rate is 24, and O2 saturation is 97% on 40% of FiO2. GENERAL: She is intubated and sedated. LUNGS: Breath sounds diminished at both bases. No wheezing. HEART: S1, S2 normal. No S3. No S4. ABDOMEN: Soft, nontender, nondistended. EXTREMITIES: No clubbing, cyanosis, or edema. NEUROLOGICAL EXAMINATION: Postponed since she is sedated. LABORATORY DATA: White count of 11.3, hemoglobin 9.6, hematocrit 31.7, platelet count is 242,000. ABGs showed pH of 7.43, pCO2 of 34.8, PO2 73.9, and base excess is -1.1. Chemistry showed sodium of 147, potassium 4.6, chloride 116, CO2 22, BUN 56, creatinine 1.66. Troponin from yesterday was 0.031. Microbiology, blood culture, no growth at 48 hours. IMPRESSION: 1. Acute respiratory failure, most likely multifactorial. She is running fever. There is some probably infectious component on the top of her diastolic heart failure and congestive heart failure. 2. Congestive heart failure, diastolic. 3. Acute renal failure, improved. 4. Urinary retention. 5. Coronary artery disease with indeterminate second set of troponin I. 6. Hypertension. 7. Lumbar radiculopathy. DISCUSSION: The patient is on broad-spectrum antibiotics for possible sepsis, most likely Pulmonary source. She is off vasopressors. She has hypernatremia and hyperchloremia, and she is getting Ringer's lactate. She will continue on her IV Solu-Medrol. Continue on IV steroids. We will follow up cultures. She will remain intubated. Her guaiac is positive and her BUN is elevated. We will watch her closely for GI bleed. She has some anemia and her hemoglobin is 9.6 down from 10.7 yesterday. Job ID: [id number]
--- NOTE | 2019-01-27 08:15 | PRG ---
DATE OF SERVICE: 01/27/2019 SUBJECTIVE: Na Hahn remains intubated and sedated, remains still encephalopathic. OBJECTIVE: VITAL SIGNS: Saturations are 99%; pulse 100, AFib; and blood pressure 130/86. CHEST: Decreased breath sounds. No wheezing. CARDIAC: Normal S1 and S2. No gallops. ABDOMEN: Soft. ASSESSMENT: 1. Congestive heart failure. 2. Morbid obesity. 3. Sleep apnea. 4. Hypothyroidism. 5. Depression. PLAN: At this stage, she is still not weanable until her encephalopathy improves. Pulmonary-chao, she is much better. IV fluids, normal saline at 70 an hour. Continue PT, supportive care, and nutrition. Wean when stable. One-half hour of critical care time. Job ID: [id number]
--- NOTE | 2019-01-27 08:16 | RAD ---
Chest AP view INDICATION: Intubation COMPARISON: January 26, 2019 FINDINGS: Lungs:There is some improvement in the bilateral perihilar edema. Mild interstitial and airspace opac ities remain within the perihilar distribution consistent some residual pulmonary edema. Cardiac silhouette:Cardiomegaly is stable Pulmonary vasculature:The pulmonary vascular congestion has improved. Mild pulmonary vascular congest ion remains. Pleural spaces:There are tiny bilateral pleural effusions. Upper abdomen:No abnormality seen. Osseous structures: No acute osseous abnormality. Additional findings:The patient has been intervally intubated. Gastric catheter has been placed with the tip projecting below the left hemidiaphragm and in the region of the gastric cardia. There is a left IJ central venous catheter which is stable. IMPRESSION: Improvement in the CHF. Interval intubation and gastric catheter placement. Stable left I J central venous catheter. No pneumothorax
[2019-01-27] MEDS: Atorvastatin Calcium 10 MG TAB PO SCH (08:20)
[2019-01-27] MEDS: Famotidine/PF 20 mg/2ml Vial SLOW IVP SCH (08:20)
[2019-01-27] MEDS: Sodium Chloride 0.9% 1,000 ML IV SCH ×2 (08:20→22:56)
[2019-01-27] MEDS: Heparin 5,000 UNITS/ML VIAL SC SCH ×3 (08:20→20:13)
[2019-01-27] MEDS: Acetaminophen 325 MG TAB PO PRN ×2 (08:21→17:31)
[2019-01-27] MEDS: Cefepime 1 GM in Sodium Chloride 0.9% 100 ML IVPB SCH ×2 (08:21→22:02)
--- NOTE | 2019-01-27 09:23 | OP ---
DATE OF PROCEDURE: 01/26/2019 Ms. Hahn was in the recumbent position because she said she was more comfortable when she was lying on her right side. A bite block was in her mouth. Bronchoscope was introduced into her oropharyngeal cavity. Vocal cords were easily visualized and the bronchoscope was quickly passed through her glottis into her trachea. The endotracheal tube was advanced, secured in place above the main facundo. The scope was withdrawn. She was sedated and then Ambu-bagged. The Ambu bag was removed from the endotracheal tube and bronchoscope was reintroduced. No distal obstructing lesions were seen in either lung. No retained mucus was seen distally suggestive of aspiration or retained secretions. She was connected to mechanical ventilation whereupon the scope was withdrawn, tolerated intubation well with no significant hypotension, change in gas exchange. Followup blood gas showed still persistent mild acidosis. Ventilatory rate was increased. Job ID: [id number]
[2019-01-27] MEDS ORDERED: Aspirin 81 mg Enteric Coated Tablet PO SCH (09:45)
[2019-01-27] MEDS ORDERED: Furosemide 20 MG/2 ML VIAL SLOW IVP SCH ×2 (09:45→20:00)
--- NOTE | 2019-01-27 10:04 | PRG ---
DATE OF SERVICE: 01/27/2019 SUBJECTIVE: Ms. Hahn is off all the pressors now. She remains intubated and sedated. OBJECTIVE: VITAL SIGNS: Blood pressure 140/60, pulse is 90 and sinus. Temperature 100.6, yesterday was 101. LUNGS: Clear anteriorly and laterally. CARDIAC: Normal S1, normal S2. ABDOMEN: Obese, nontender. EXTREMITIES: Warm and dry. No clubbing or cyanosis or edema. LABORATORY DATA: Creatinine is improved to 1.66. Troponin indeterminate at 0.031, probably some demand ischemia. ASSESSMENT: 1. Probable sepsis. 2. Coronary artery disease. 3. Diastolic heart failure. 4. Renal failure improved. PLAN: 1. Give her furosemide twice a day. 2. Monitor renal function. She continues to improve. 3. Resume aspirin. 4. We will follow with you. Job ID: [id number]
[2019-01-27] MEDS: Vancomycin HCl 500 MG in Sodium Chloride 0.9% 100 ML IVPB SCH (10:36)
--- NOTE | 2019-01-27 12:03 | CON ---
DATE OF CONSULTATION: SERVICE: Renal Medicine. HISTORY OF PRESENT ILLNESS: Ms. Hahn is a 78-year-old white female, who was initially admitted for hypotension and generalized weakness. She was found to be in sepsis at that time. During this hospitalization, her overall clinical condition deteriorated. She underwent acute respiratory failure and currently is now intubated on ventilator support. During this incident, she was noted to have an acute kidney injury. Empiric volume repletion has been done with this patient. In addition, renal function with supportive management is slowly improving. Please note, renal ultrasound was done on January 25 and it did show bilateral renal cortical thinning and moderate distention of the bladder. REVIEW OF SYSTEMS: Not obtainable since the patient is intubated on ventilator support. MEDICATIONS: The patient is currently on; 1. Normal saline 75 mL/hour. 2. Status post albumin infusion. 3. Allopurinol 100 mg tablet once a day. 4. Atorvastatin 10 mg tablet daily. 5. Status post azithromycin. 6. Cefepime 1 g IV b.i.d. 7. Famotidine 20 mg IV daily. 8. Fentanyl patch. 9. Furosemide - on hold. 10. Gabapentin 100 mg p.o. at bedtime. 11. Heparin 5000 units subcu t.i.d. 12. Levophed infusion. 13. Levothyroxine currently on 250 mcg per day. 14. Morphine p.r.n. 15. Propofol drip. 16. Sertraline 200 mg at bedtime. 17. Start on IV vancomycin. PAST MEDICAL HISTORY: Includes the following; 1. Hypothyroidism. 2. Chronic renal failure of uncertain etiology. 3. Hyperlipidemia. 4. The patient has history of depression. 5. History of gout. 6. She also has hypertension. 7. History of morbid obesity. 8. Diabetes mellitus. 9. History of CHF. 10. Coronary artery disease. 11. Atrial fibrillation. PAST SURGICAL HISTORY: Includes status post cardiac catheterization, status post CABG, status post cholecystectomy, status post tonsillectomy, status post bilateral knee surgery, status post hernia repair, and status post carpal tunnel surgery. SOCIAL HISTORY: The patient is a nonsmoker. No IV drug abuse. No alcohol use. She did smoke several years ago. She lives a sedentary lifestyle. FAMILY HISTORY: No family history of ESRD. ALLERGIES: NONE. TRAUMA: None. IMMUNIZATIONS: Up-to-date. HOSPITALIZATIONS: Please see past medical history. PHYSICAL EXAMINATION: VITAL SIGNS: Blood pressure is currently at 151/75 with a heart rate of 83, respiratory rate 24, and pulse ox 97%. GENERAL: The patient is sedated, intubated, on ventilator support. SKIN: Adequate turgor. HEENT: She has pinkish conjunctivae. Anicteric sclerae. NECK: No neck mass. No carotid bruits. No JVD. CHEST: No deformities. LUNGS: Decreased breath sounds. HEART: Normal sinus rhythm. No murmur. No gallops. No rubs. ABDOMEN: Globular, soft, and nontender. No masses. EXTREMITIES: Trace edema. NEUROLOGICAL: Sedated and intubated, on ventilator support. LABORATORY DATA: Laboratories of January 27, 2019; sodium 147, potassium 4.6, chloride 106, carbon dioxide 22, BUN 56, creatinine 1.66, glucose 141, and calcium 9.5. On January 26, 2019; creatinine 2.35. On January 25, 2019; creatinine 3.76. On January 24, 2019; creatinine 4.8. On September 19, 2018; creatinine 1.29. Urinalysis on January 24, 2019; shows specific gravity of 1.014, no protein, no red cells, no white cells. Renal ultrasound shows increased echogenicity. ASSESSMENT AND PLAN: 1. Acute kidney injury - this is most likely a hemodynamically-mediated renal dysfunction secondary to ? of sepsis and hypotension with this patient. With optimization of her hemodynamics, renal function has slowly been improving. I do not see any indication for an emergent hemodialysis with this patient. For the moment, agree with current management. Continue gentle volume repletion and BP support with her norepinephrine. 2. Chronic renal failure, unclear etiology. This could be from underlying hypertensive nephropathy with this patient. Continue supportive care. 3. Sepsis, currently on IV antibiotics. The patient has cefepime and IV vancomycin. Overall, agree with current management. Job ID: [id number]
[2019-01-27] MEDS: Amiodarone 450 MG, Admixture Fee 1 EACH in Dextrose 5% in Water 250 ML IVPB SCH (17:31)
[2019-01-27] MEDS: Allopurinol 100 MG TAB PO SCH (20:12)
[2019-01-27] MEDS: Gabapentin 100 MG CAP PO SCH (20:12)
[2019-01-28] MEDS: Amiodarone 450 MG, Admixture Fee 1 EACH in Dextrose 5% in Water 250 ML IVPB SCH ×2 (02:05→15:03)
[2019-01-28] MEDS: Propofol 1,000 MG/100 ML VIAL IV PRN ×6 (03:09→23:54)
[2019-01-28 04:20] LABS: #Lymphocytes 1.1 thou/uL (1.20-3.40); #Monocytes 0.6 thou/uL (0.11-0.59); #Neutrophils 10.6 thou/uL (1.40-6.50); %Basophils 0.1 % (0.0-1.0); %Eosinophils 0.3 % (0.0-10.0); %Lymphocytes 8.7 % (21.0-51.0); %Monocytes 4.7 % (0.0-10.0); %Neutrophils 86.2 % (42.0-75.0); Mean Corpuscular HGB CONC 31.3 g/dL (32.0-36.0); Mean Corpuscular Hemoglobin 25.3 pg (27.0-31.0); Mean Corpuscular Volume 80.8 fL (78.0-98.0); Mean Platelet Volume 10.9 fL (7.4-10.4); Platelet Count 232 thou/uL (130-400); RBC Distribution Width 19.5 % (11.5-14.5); Red Blood Cell (RBC) Count 3.94 mill/uL (4.20-5.40); White Blood Cell (WBC) Count 12.3 thou/uL (4.8-10.8)
[2019-01-28 04:29] LABS: Anion Gap 12 mmol/L (10-20); BUN (Urea Nitrogen) 62 mg/dL (9.8-20.1); Calc. Creatinine Clearance 61 mL/min (70-130); Calcium 9.5 mg/dL (7.8-10.44); Carbon Dioxide 25 mmol/L (23-31); Chloride 115 mmol/L (98-107); Estimated GFR-MDRD 34; Glucose 157 mg/dL (83-110); Potassium 4.3 mmol/L (3.5-5.1); Sodium 148 mmol/L (136-145)
[2019-01-28] MEDS: methylPREDNISolone Sod Succ 40 MG VIAL IVP SCH ×4 (06:04→23:54)
[2019-01-28] MEDS: Levothyroxine Sodium 100 MCG TAB PO SCH (06:05)
[2019-01-28] MEDS: Furosemide 20 MG/2 ML VIAL SLOW IVP SCH ×2 (06:05→14:14)
[2019-01-28] MEDS: Levothyroxine Sodium 50 MCG TAB PO SCH (06:05)
--- NOTE | 2019-01-28 08:10 | RAD ---
EXAM: Single view of the chest HISTORY: Ventilated patient with respiratory failure COMPARISON: 01/27/2019 FINDINGS: Single view of the chest shows an enlarged but stable cardiomediastinal silhouette. The pa tient is status post sternotomy. The lines and tubes are unchanged in position. There is no evidence of consolidation, mass, or pleural effusion. The bones are unremarkable. IMPRESSION: Stable cardiomegaly
[2019-01-28] MEDS: Atorvastatin Calcium 10 MG TAB PO SCH (08:53)
[2019-01-28] MEDS: Heparin 5,000 UNITS/ML VIAL SC SCH ×3 (08:53→20:44)
[2019-01-28] MEDS: Famotidine/PF 20 mg/2ml Vial SLOW IVP SCH (08:53)
[2019-01-28] MEDS: Aspirin 81 mg Enteric Coated Tablet PO SCH (08:53)
[2019-01-28] MEDS ORDERED: Digoxin 0.5 MG/2 ML AMP SLOW IVP SCH ×2 (09:15→11:00)
--- NOTE | 2019-01-28 09:18 | PRG ---
DATE OF SERVICE: 01/28/2019 SUBJECTIVE: Ms. Hahn remains intubated and sedated. Her heart rate is 120 to 140, in atrial fibrillation with a rapid rate, despite amiodarone. REVIEW OF SYSTEMS: Not obtainable. OBJECTIVE: GENERAL: She is intubated. LUNGS: Clear. CARDIAC: She is tachycardic and irregular. ABDOMEN: Soft and nontender. She is obese. EXTREMITIES: No clubbing or cyanosis. The extremities are warm and dry. LAB ASSESSMENT: 1. Diastolic heart failure. 2. Renal failure, slightly improved. Creatinine is 1.5. 3. Atrial fibrillation with a rapid rate. 4. Respiratory failure, probably multifactorial including diastolic heart failure, possibly pneumonia as well. PLAN: 1. Give her one dose of digoxin. 2. Continue intravenous amiodarone. 3. She is also on intravenous furosemide. Prognosis guarded in this patient. Job ID: [id number]
[2019-01-28] MEDS: Sodium Chloride 0.45% 1,000 ML IV SCH ×2 (09:40→20:45)
[2019-01-28] MEDS: Cefepime 1 GM in Sodium Chloride 0.9% 100 ML IVPB SCH ×2 (10:02→21:26)
--- NOTE | 2019-01-28 10:07 | PRG ---
DATE OF SERVICE: 01/28/2019 SUBJECTIVE: Ms. Hahn is a 78-year-old white female, who was seen for an acute kidney injury that was hemodynamically-mediated renal dysfunction. She has been previously been diuresed. The acute kidney injury may also be related from her sepsis and hemodynamic instability. Renal function has been stabilizing. No acute events noted except for the patient running tachycardic with a heart rate of 152. Cardiology has evaluated this patient, recommendation for one time digoxin was ordered. OBJECTIVE: VITAL SIGNS: Blood pressure is 135/77, heart rate 150, respiratory rate 15, and pulse ox 96%. GENERAL: The patient is sedated and intubated on the ventilator support. SKIN: Adequate turgor. HEENT: She has a pinkish conjunctivae. Anicteric sclerae. NECK: No neck mass. No carotid bruits. No JVD. CHEST: No deformities. LUNGS: Decreased breath sounds. HEART: Tachycardic. No murmurs. No gallops. No rubs. ABDOMEN: Globular and soft. EXTREMITIES: Trace edema. MEDICATIONS: Medications of January 28, 2019, was reviewed. LABORATORY DATA: Laboratories of January 28, 2019; sodium 148, potassium 4.3, chloride 115, carbon dioxide 25, BUN 62, creatinine 1.5, glucose 157, and calcium 9.5. White count 12.3 and hemoglobin 10. ASSESSMENT AND PLAN: 1. Sepsis, currently on IV antibiotics. 2. Acute kidney injury - superimposed hemodynamically-mediated renal dysfunction. She is prerenal from a septic point of view. Gentle volume repletion is also being done. Currently IV fluid will be changed to a hypotonic solution - half-normal saline due to the hypernatremia. Fluid, which will be at 100 mL/h. 3. Tachycardia - digoxin 0.25 mg IV x1 dose. 4. There is no indication for any dialytic intervention with this patient. She does have a possible underlying chronic renal failure from possible hypertensive nephropathy. Job ID: [id number]
[2019-01-28 10:41] LABS: Vancomycin, Trough 8.4 ug/mL
--- NOTE | 2019-01-28 11:12 | PRG ---
DATE OF SERVICE: 01/28/2019 SERVICE: Pulmonary Medicine. INTERVAL HISTORY: The patient is doing fine from respiratory standpoint. Breathing comfortably. She is on mechanical ventilation. Her saturations have improved. She takes very large tidal volumes whenever we wean sedation. Otherwise, there has been no interval change to her condition. There were no significant overnight events. She remains in atrial fibrillation with an uncontrolled rate. PHYSICAL EXAMINATION: VITAL SIGNS: Afebrile, pulse 123, respirations 18, saturation 94% on 40% FiO2 and a PEEP of 5. GENERAL: The patient is intubated and sedated. HEENT: Normocephalic and atraumatic. Sclerae are white. Conjunctivae are pink. Oral mucosa is moist without lesions. LUNGS: Good air entry. Minimal crackles are present in the bibasilar regions. HEART: Normal rate, regular. ABDOMEN: Soft, nontender, and nondistended. Bowel sounds are positive. MUSCULOSKELETAL: No cyanosis or clubbing. There is no pitting in the bilateral lower extremities. NEUROLOGIC: Grossly nonfocal. LABORATORY DATA: WBC 12.3, hemoglobin 10.0, platelets 232,000. Creatinine 1.50 and gently downtrending, BUN 62, sodium 148, chloride 115. Basic metabolic profile is otherwise unremarkable. IMAGING STUDIES: Chest x-ray demonstrates soft tissue attenuation. There is likely a small right-sided pleural-parenchymal disease, which may represent an effusion. Endotracheal tube terminates in good position. There is a right-sided IJ that is high. There is an enteric catheter coursing below the level of the diaphragm. The patient is fairly significantly rotated left anterior oblique. ASSESSMENT: 1. Acute hypoxic respiratory failure. 2. Atrial fibrillation with rapid ventricular response. 3. Acute kidney injury, improving. 4. Obstructive sleep apnea. 5. Morbid obesity. 6. [id number] systolic and diastolic heart failure. DISCUSSION AND PLAN: The patient is doing a little better from respiratory standpoint. She remains a little volume down. Agree with changing fluids over to half-normal saline. In 24 hours, if she wakes up smoothly, she can be considered for a spontaneous breathing trial and subsequent extubation. That being said, we will give her a very long spontaneous breathing trial as weakness is a significant issue in Ms. Hahn. CRITICAL CARE TIME: 30 minutes. Job ID: [id number]
[2019-01-28] MEDS: Vancomycin HCl 750 MG in Sodium Chloride 0.9% 250 ML 250 ML IVPB SCH (12:10)
[2019-01-28] MEDS: Acetaminophen 325 MG TAB PO PRN (13:05)
--- NOTE | 2019-01-28 13:39 | PRG ---
DATE OF SERVICE: 01/28/2019 SUBJECTIVE: The patient is seen and examined at the bedside. Link Assembler put her on pressure support this morning, and she is doing quite well. Also, her heart rate went up overnight to 160s, and she is treated with IV amiodarone, and she received 2 doses of digoxin 0.25 each. She is sedated. She is on the ventilator. OBJECTIVE: VITAL SIGNS: Blood pressure is 141/93, pulse is 118, respiratory rate is 23, and O2 saturation is 91%. HEENT: Her pupils are mid size with mild reaction to light. She is orally intubated. LUNGS: Breath sounds diminished at both bases. HEART: S1 and S2. Irregularly irregular. No S3. No S4. Tachycardic. ABDOMEN: Soft and nondistended. Bowel sounds present. No organomegaly. EXTREMITIES: 1+ peripheral edema in lower and upper extremities. NEUROLOGIC: Postponed since she is sedated. LABORATORY DATA: White count of 12.3, hemoglobin 10.0, hematocrit 31.8, platelet count is 232,000. Sodium of 142, potassium 4.3, chloride 115, CO2 of 25, BUN 62, creatinine 1.50, glucose is 157, vancomycin trough is 8.4, and calcium 9.5. Microbiology; no new findings. Blood cultures are negative so far. IMPRESSION: 1. Acute respiratory failure, most likely multifactorial. The patient is still intubated. 2. Congestive heart failure, diastolic. 3. Acute renal failure, improved. 4. Hypernatremia and hyperchloremia. IV fluids were changed to half-normal saline by manager metal at 100 mL/hour. 5. Urinary retention. 6. Coronary artery disease with indeterminate second set of troponin I. 7. Hypertension. 8. Lumbar radiculopathy. DISCUSSION: The patient is showing some residuals. We are going to start her on Reglan IV push 5 mg q.6 hours. Her IV fluids were changed for hypernatremia and hyperchloremia correction. We will continue her steroids per recommendation of Pulmonary Service. We will continue her antibiotics, which are vancomycin and cefepime. She will continue on amiodarone IV drip, and she was given 2 doses of digoxin per balloon maker on-call, Dr. Cintron, 0.25 mg x2 doses, and her heart rate slowed down to 100 to 110s. She will remain in the intensive care unit for now. Job ID: [id number]
[2019-01-28] MEDS: Metoclopramide HCl 10 MG/2 ML VIAL IVP PRN (14:14)
[2019-01-28] MEDS: Vancomycin HCl 500 MG in Sodium Chloride 0.9% 100 ML IVPB SCH (16:06)
[2019-01-28] MEDS: Allopurinol 100 MG TAB PO SCH (20:44)
[2019-01-28] MEDS: Gabapentin 100 MG CAP PO SCH (20:44)
[2019-01-29 04:46] LABS: #Eosinphils 0.1 thou/uL (0.0-0.7); #Lymphocytes 1.3 thou/uL (1.20-3.40); #Monocytes 0.9 thou/uL (0.11-0.59); #Neutrophils 11.7 thou/uL (1.40-6.50); %Basophils 0.2 % (0.0-1.0); %Eosinophils 0.8 % (0.0-10.0); %Monocytes 6.2 % (0.0-10.0); %Neutrophils 83.7 % (42.0-75.0); Hemoglobin 10.4 g/dL (12.0-16.0); Mean Corpuscular HGB CONC 31.3 g/dL (32.0-36.0); Mean Corpuscular Hemoglobin 25.1 pg (27.0-31.0); Mean Corpuscular Volume 80.1 fL (78.0-98.0); Mean Platelet Volume 11.5 fL (7.4-10.4); Platelet Count 226 thou/uL (130-400); RBC Distribution Width 19.3 % (11.5-14.5); Red Blood Cell (RBC) Count 4.14 mill/uL (4.20-5.40)
[2019-01-29 05:08] LABS: Anion Gap 12 mmol/L (10-20); BUN (Urea Nitrogen) 74 mg/dL (9.8-20.1); Calc. Creatinine Clearance 59 mL/min (70-130); Calcium 9.2 mg/dL (7.8-10.44); Carbon Dioxide 24 mmol/L (23-31); Chloride 114 mmol/L (98-107); Estimated GFR-MDRD 34; Glucose 156 mg/dL (83-110); Potassium 4.2 mmol/L (3.5-5.1); Sodium 146 mmol/L (136-145)
[2019-01-29] MEDS: Levothyroxine Sodium 50 MCG TAB PO SCH (06:11)
[2019-01-29] MEDS: Levothyroxine Sodium 100 MCG TAB PO SCH (06:11)
[2019-01-29] MEDS: methylPREDNISolone Sod Succ 40 MG VIAL IVP SCH (06:11)
[2019-01-29] MEDS: Furosemide 20 MG/2 ML VIAL SLOW IVP SCH (06:11)
[2019-01-29 06:49] LABS: Actual Bicarbonate (HCO3a) 23.4 mEq/L (22-28); Base Excess (BEa) -1.1 mEq/L (-2.0 to +3.0); CO2 Tension 38.2 mmHg (35.0-45.0); Calcium, Ionized 1.22 mmol/L (1.12-1.30); Carboxyhemoglobin (COHb) 0.9 gm% (0.0-3.0); Hemoglobin (Hb) 11.1 g/dL (12.0-16.0); O2 Tension (PaO2) 77.1 mmHg (> 70.0); Potassium - ABG Lab 4.24 mmol/L (3.70-5.30); pH, Arterial 7.41 (7.35-7.45)
[2019-01-29 06:56] LABS: Puncture Site RRAD
[2019-01-29] MEDS: Heparin 5,000 UNITS/ML VIAL SC SCH ×3 (08:11→21:03)
[2019-01-29] MEDS: Aspirin 81 mg Enteric Coated Tablet PO SCH (08:12)
[2019-01-29] MEDS: Acetaminophen 650 MG/20.3 ML UDCUP PO PRN ×2 (08:12→18:36)
[2019-01-29] MEDS: Famotidine/PF 20 mg/2ml Vial SLOW IVP SCH (08:12)
[2019-01-29] MEDS: Cefepime 1 GM in Sodium Chloride 0.9% 100 ML IVPB SCH ×2 (08:15→21:03)
[2019-01-29] MEDS: Metoclopramide HCl 10 MG/2 ML VIAL IVP PRN (08:15)
[2019-01-29] MEDS: Propofol 1,000 MG/100 ML VIAL IV PRN (08:16)
[2019-01-29] MEDS: Sodium Chloride 0.45% 1,000 ML IV SCH (08:17)
[2019-01-29] MEDS: Atorvastatin Calcium 10 MG TAB PO SCH (08:18)
--- NOTE | 2019-01-29 08:38 | RAD ---
SINGLE VIEW CHEST: Date: 01/29/19 COMPARISON: 01/28/19. HISTORY: Ventilated patient with respiratory failure. FINDINGS: Single view of the chest shows an enlarged but stable cardiomediastinal silhouette. The patient is st atus post sternotomy. Lines and tubes are unchanged in position. There is a small left pleural effusi on. No consolidation is seen. IMPRESSION: Cardiomegaly and small left pleural effusion. POS: C
--- NOTE | 2019-01-29 09:37 | PRG ---
DATE OF SERVICE: SUBJECTIVE: Ms. Hahn is a 78-year-old white female seen by the Renal Service for acute kidney injury on top of her chronic renal failure. Empiric volume repletion has been given with this patient with improvement of renal function. Urine sediment did not suggest acute tubular necrosis. Acute tubular necrosis-was relatively benign. She was also noted to be mildly hypernatremic and for that reason, normal saline was changed to half-normal saline. In addition, she has been having episodes of tachycardia and is receiving p.r.n. digoxin. Chest x-ray today did not show overt CHF, but some pleural effusion. No acute events noted last night. OBJECTIVE: VITAL SIGNS: Blood pressure is 122/89 with a heart rate of 116, respiratory rate 17, O2 saturation 92%. GENERAL: Noted to be awake, alert, comfortable, not in overt distress. SKIN: Adequate turgor. HEENT: Pinkish conjunctivae. Anicteric sclerae. NECK: No neck mass. No carotid bruits. No JVD. CHEST: No deformities. LUNGS: Clear breath sounds. No wheezing. No crackles. HEART: Tachycardic. No murmur. No gallops. No rubs. ABDOMEN: Globular, soft, nontender. No masses. EXTREMITIES: No edema. No deformities. MEDICATIONS: Medications of January 29, 2019, was reviewed. LABORATORY DATA: Laboratories of January 29, 2019; white count 14, hemoglobin 10.4. Sodium 146, potassium 4.2, chloride 114, carbon dioxide 24, BUN 74, creatinine 1.51, glucose 156, calcium 9.2. ASSESSMENT AND PLAN: 1. Acute kidney injury - superimposed hemodynamically-mediated renal dysfunction. Continue supportive care. Currently, the patient is on IV furosemide. No indication for any dialytic intervention. 2. Chronic renal failure, presumptive hypertensive nephropathy. Creatinine is relatively stable. Continue to optimize hemodynamics. The patient currently is on half-normal saline. 3. Overall agree with current management. Job ID: [id number]
--- NOTE | 2019-01-29 10:16 | PRG ---
DATE OF SERVICE: 01/29/2019 SUBJECTIVE: Ms. Hahn remains intubated and sedated. REVIEW OF SYSTEMS: Not obtainable. OBJECTIVE: VITAL SIGNS: Heart rate is still in the 110 to 120 range. Atrial fibrillation. LUNGS: Clear. CARDIAC: Irregularly irregular. ABDOMEN: Obese, nontender. EXTREMITIES: No edema. ASSESSMENT: 1. Congestive heart failure, diastolic, systolic mixed. 2. Atrial fibrillation with of a rapid ventricular response. 3. Renal insufficiency stage III. Estimated GFR is 34, it is improved. PLAN: 1. Continue intravenous amiodarone. 2. Check digoxin level tomorrow. 3. She is on subcutaneous heparin. Job ID: [id number]
[2019-01-29] MEDS ORDERED: Dextrose 5% in Water 1,000 ML IV SCH (10:30)
[2019-01-29] MEDS ORDERED: Furosemide 20 MG/2 ML VIAL SLOW IVP SCH (10:30)
--- NOTE | 2019-01-29 10:38 | PRG ---
DATE OF SERVICE: 01/29/2019 SERVICE: Pulmonary Medicine. INTERVAL HISTORY: The patient is doing okay from respiratory standpoint. She is diuresing comfortably. Because of elevated sodium, she started on half-normal saline. That is exactly what the urine makes when we give Lasix. As such, we have been spinning her wheels with that. She cannot provide any additional elements to the history. She is heavily sedated currently. Otherwise, there is no interval change to her condition. She is currently on a spontaneous breathing trial and breathing quite comfortably. PHYSICAL EXAMINATION: VITAL SIGNS: Afebrile currently with a temperature of 100.2, her maximum temperature overnight was 100.8. Pulse 116, blood pressure 122/89, respirations 15, saturation 93%, currently on 37% FiO2 and PEEP of 5. GENERAL: The patient is sedated heavily. HEENT: Normocephalic and atraumatic. Sclerae white. Conjunctivae pink. Oral mucosa is moist without lesions. LUNGS: Decent air entry today. There is no prolonged expiratory phase or wheezing. Dependent crackles are present. HEART: Normal rate and regular. ABDOMEN: Soft, nontender, nondistended. Bowel sounds are positive. MUSCULOSKELETAL: No cyanosis or clubbing. There is trace edema at the hips. NEUROLOGIC: Grossly nonfocal. LABORATORY DATA: WBC 14.0, hemoglobin 10.4, platelets 226,000. PH 7.41, pCO2 38, PO2 77, corresponding to saturation 97%. Creatinine 1.51 and stable, BUN up trending to 74, chloride 114, sodium 146. Urinalysis is unremarkable. All culture results remain negative to date. IMAGING STUDIES: Chest x-ray demonstrates small left pleural effusion is present. Cardiomegaly is noted. Endotracheal tube is in good position. The carinal angle is enlarged suggestive of left atrial enlargement. Cephalization is once again noted as well as some pulmonary vascular congestion. ASSESSMENT: 1. Acute hypoxic respiratory failure. 2. Atrial fibrillation with rapid ventricular rate, currently rate controlled. 3. Acute kidney injury, on chronic kidney disease, stable. 4. Obstructive sleep apnea. 5. Morbid obesity. 6. Sepsis. 7. Acute on chronic systolic and diastolic heart failure. DISCUSSION AND PLAN: If the sodium goes up, we need to give D5 water. We will continue to diurese the patient until she returns to euvolemia through time. She is fast approaching this. She cannot provide any additional elements to the history. I will give her a long sedation holiday. If she meets criteria, extubation will be considered. Pulmonary/Critical Care will follow along in this location. CRITICAL CARE TIME: 30 minutes. Job ID: [id number]
[2019-01-29] MEDS: Dextrose 5% in Water 1,000 ML IV SCH (10:45)
[2019-01-29] MEDS: Vancomycin HCl 750 MG in Sodium Chloride 0.9% 250 ML 250 ML IVPB SCH (11:40)
--- NOTE | 2019-01-29 13:42 | PRG ---
DATE OF SERVICE: 01/29/2019 SUBJECTIVE: The patient is seen and examined at the bedside. She is in ICU C12. She is sedated and intubated. She is still in atrial fibrillation with somewhat fast ventricular rates around 110 to 120 beats per minute. OBJECTIVE: VITAL SIGNS: Blood pressure is 153/110, pulse is 137, temperature is 100.3, respiratory rate is 25. Her maximal temperature is 100.5 during the last 24 hours. GENERAL: She is orally intubated. She is heavily sedated at the time of my visit. HEENT: Her pupils are responding to light properly for this kind of setting. Conjunctivae are palish. Oral mucosa is not examined. LUNGS: Breath sounds diminished at both bases. HEART: S1 and S2. Tachycardic. Irregularly irregular. No S3. No S4. ABDOMEN: Obese, soft, and nondistended. EXTREMITIES: 1+ peripheral edema, similar bilateral on both lower extremities. NEUROLOGIC: Postponed since she is heavily sedated. LABORATORY DATA: Showed white count of 14.0, hemoglobin 10.4, hematocrit 33.2, platelet count is 226,000. ABG showed pH of 7.41, pCO2 of 38.2, pO2 of 77.1. Sodium is 146, potassium 4.2, chloride 114, CO2 of 24, BUN of 74, creatinine 1.51, glucose 156, calcium 9.2. Vancomycin trough 8.4. Microbiology: No new findings. Chest x-ray showed heart enlargement, left pleural effusion, slightly increased interstitial markings bilaterally. IMPRESSION: 1. Sepsis. 2. Acute respiratory failure. 3. Diastolic congestive heart failure. 4. Acute renal failure, improved. 5. Hypernatremia and hyperchloremia, on half-normal saline at this point. We will try to switch her to D5 water to correct her hypernatremia faster, and I think she is getting too much fluids and she is getting overloaded. 6. Hypertension. 7. Lumbar radiculopathy. 8. Coronary artery disease. DISCUSSION: The case will be discussed with Dr. Vazquez, who is managing a nephrology part on this patient. I would prefer to use D5 water to correct her hypernatremia faster and limit the number of fluids she is getting. It looks to me that she is getting fluid overload. Also, we will continue her on broad-spectrum coverage with cefepime and vancomycin. Her atrial fibrillation is still showing uncontrolled ventricular rate, although she is on amiodarone and digoxin, and Dr. Cintron is managing that case. We will change her Reglan to 10 mg IV push every 6 hours to help her feeding and decrease the residual volumes. Job ID: [id number]
--- NOTE | 2019-01-29 20:30 | CT ---
CT head noncontrast HISTORY: Altered mental status. FINDINGS: There is no evidence of acute intracranial hemorrhage or infarct. Ventricles appear normal in size, shape and position. There is no mass effect or shift of midline structures. Visualized paranasal sinuses remain well aerated. IMPRESSION: No acute intracranial abnormalities are demonstrated.
[2019-01-29] MEDS: Gabapentin 100 MG CAP PO SCH (21:03)
[2019-01-29] MEDS: Allopurinol 100 MG TAB PO SCH (21:03)
[2019-01-29] MEDS: Amiodarone 450 MG, Admixture Fee 1 EACH in Dextrose 5% in Water 250 ML IVPB SCH (21:58)
[2019-01-30] MEDS: Acetaminophen 650 MG/20.3 ML UDCUP PO PRN ×4 (04:15→23:19)
[2019-01-30] MEDS: Dextrose 5% in Water 1,000 ML IV SCH ×2 (04:15→15:30)
[2019-01-30 05:15] LABS: Anion Gap 13 mmol/L (10-20); BUN (Urea Nitrogen) 77 mg/dL (9.8-20.1); Calc. Creatinine Clearance 59 mL/min (70-130); Calcium 8.9 mg/dL (7.8-10.44); Carbon Dioxide 23 mmol/L (23-31); Chloride 113 mmol/L (98-107); Estimated GFR-MDRD 34; Glucose 148 mg/dL (83-110); Potassium 4.2 mmol/L (3.5-5.1); Sodium 145 mmol/L (136-145)
[2019-01-30 05:21] LABS: Digoxin 0.77 ng/mL (0.8-2.0)
[2019-01-30] MEDS: Levothyroxine Sodium 100 MCG TAB PO SCH (05:32)
[2019-01-30] MEDS: Levothyroxine Sodium 50 MCG TAB PO SCH (05:32)
[2019-01-30 05:53] LABS: Band 6 % (5-11); Hemoglobin 10.2 g/dL (12.0-16.0); Lymphocytes 11 % (21-51); MDiff Complete? YES; Mean Corpuscular HGB CONC 30.5 g/dL (32.0-36.0); Mean Corpuscular Hemoglobin 24.3 pg (27.0-31.0); Mean Corpuscular Volume 79.9 fL (78.0-98.0); Mean Platelet Volume 11.4 fL (7.4-10.4); Monocytes 8 % (0-10); Myelocyte 1 % (0-0); Neutrophil 74 % (42-75); Platelet Count 197 thou/uL (130-400); Red Blood Cell (RBC) Count 4.21 mill/uL (4.20-5.40); White Blood Cell (WBC) Count 15.7 thou/uL (4.8-10.8)
[2019-01-30] MEDS ORDERED: Furosemide 40 MG/4 ML VIAL SLOW IVP SCH (06:00)
[2019-01-30 07:28] LABS: Actual Bicarbonate (HCO3a) 21.4 mEq/L (22-28); Base Excess (BEa) -2.4 mEq/L (-2.0 to +3.0); CO2 Tension 33.3 mmHg (35.0-45.0); Calcium, Ionized 1.19 mmol/L (1.12-1.30); Carboxyhemoglobin (COHb) 1.1 gm% (0.0-3.0); Hemoglobin (Hb) 11.2 g/dL (12.0-16.0); O2 Tension (PaO2) 76.7 mmHg (> 70.0); Potassium - ABG Lab 4.12 mmol/L (3.70-5.30); pH, Arterial 7.43 (7.35-7.45)
[2019-01-30 07:30] LABS: ALV-art Gradient 131.225 (0-20); Puncture Site L.R.
--- NOTE | 2019-01-30 09:18 | PRG ---
DATE OF SERVICE: 01/30/2019 SUBJECTIVE: Ms. Hahn is on the ventilator, resting. She is moderately sedated. OBJECTIVE: VITAL SIGNS: Blood pressure 110/65. Pulse 90, it is irregular, it is atrial fibrillation. LUNGS: Clear. CARDIAC: Irregularly irregular. ABDOMEN: Obese, nontender. ASSESSMENT: 1. Respiratory failure. 2. Congestive heart failure, systolic and diastolic mixed. 3. Obesity. 4. Coronary artery disease. 5. Renal failure, improving. Creatinine is down to 1.48. PLAN: 1. Change from heparin to Lovenox. 2. She is on IV Lasix. 3. She is on amiodarone and Cardizem for heart rate control. Job ID: [id number]
[2019-01-30] MEDS: Potassium Chloride 20 MEQ TAB PO SCH (09:24)
[2019-01-30] MEDS: Famotidine/PF 20 mg/2ml Vial SLOW IVP SCH (09:25)
[2019-01-30] MEDS: Atorvastatin Calcium 10 MG TAB PO SCH (09:25)
[2019-01-30] MEDS: Aspirin 81 mg Enteric Coated Tablet PO SCH (09:25)
[2019-01-30] MEDS: methylPREDNISolone Sod Succ 40 MG VIAL IVP SCH (09:25)
[2019-01-30] MEDS: Enoxaparin Sodium 80 MG/0.8 ML SYRINGE SC SCH ×2 (09:25→20:37)
[2019-01-30] MEDS: Cefepime 1 GM in Sodium Chloride 0.9% 100 ML IVPB SCH ×2 (09:26→21:29)
[2019-01-30] MEDS: Diltiazem HCl 125 MG, Admixture Fee 1 EACH in Sodium Chloride 0.9% 100 ML IVPB SCH (11:05)
[2019-01-30] MEDS: Amiodarone 450 MG, Admixture Fee 1 EACH in Dextrose 5% in Water 250 ML IVPB SCH (11:05)
[2019-01-30] MEDS: Metoclopramide HCl 10 MG/2 ML VIAL IVP PRN ×2 (12:19→23:18)
[2019-01-30] MEDS: Furosemide 40 MG/4 ML VIAL SLOW IVP SCH (13:44)
--- NOTE | 2019-01-30 14:23 | PRG ---
DATE OF SERVICE: SUBJECTIVE: Na Hahn is a 78-year-old morbidly obese female, who was on Precedex this morning, intubated on the vent. She is not weanable. She is on amiodarone and Cardizem for SVT. She is on vancomycin. So far, cultures are negative. She is on Maxipime, Reglan, steroids, neb treatments. OBJECTIVE: VITAL SIGNS: Blood pressure is 128\76, pulse 120, respirations 15, and afebrile. I's and O's positive. CHEST: Decreased breath sounds. No wheezing. CARDIAC: Normal S1 and S2. No gallops. ABDOMEN: No masses. LABORATORY DATA: White cell count is 15,000, platelet count is normal. PO2 is 76, pCO2 _41 ph 7.43 BUN and creatinine are somewhat better. ASSESSMENT: 1. Respiratory failure. 2. Morbid obesity. 3. Encephalopathy. 4. Severe deconditioning. 5. Azotemia. 6. Supraventricular tachycardia. PLAN: Discontinue vancomycin. Continue Maxipime, steroids, PT, supportive care. She is not weanable at this stage. I have discussed with her [id number] and her son. Apparently, there is some kind of back issue, she cannot come. Discussed the code status with them. One-half hour of critical care time. Job ID: [id number] MTDD
[2019-01-30] MEDS: Propofol 1,000 MG/100 ML VIAL IV PRN (14:43)
--- NOTE | 2019-01-30 16:17 | PDOC.HOSPP ---
- Subjective Encounter Date: 01/30/19 Encounter Time: 12:30 Subjective: pt intubated, opens eyes and moves left upper and lower ext - Objective Vital Signs & Weight: Vital Signs (12 hours) Temp Pulse Pulse Pulse Resp BP BP 01/30/19 14:07 102 H 18 109/79 01/30/19 14:00 18 01/30/19 12:00 100.8 F H 18 01/30/19 10:14 101 H 123/61 01/30/19 10:13 106 H 18 01/30/19 10:00 19 01/30/19 09:33 98 88 127/58 L 01/30/19 08:00 101 F H 19 01/30/19 07:16 91 116/61 01/30/19 07:15 105 H 19 01/30/19 06:00 100.1 F H 19 BP Pulse Ox Pulse Ox 01/30/19 14:07 94 L 01/30/19 14:00 01/30/19 12:00 01/30/19 10:14 01/30/19 10:13 91 L 01/30/19 10:00 01/30/19 09:33 112/62 93 L 01/30/19 08:00 92 L 01/30/19 07:16 01/30/19 07:15 94 L 01/30/19 06:00 Weight Admit Weight 261 lb 0.32 oz Weight 266 lb 1.567 oz Most Recent Monitor Data Heart Rate from ECG 102 NIBP 130/70 NIBP BP-Mean 90 Respiration from ECG 20 SpO2 92 I&O: 01/29/19 01/30/19 01/31/19 06:59 06:59 06:59 Intake Total 4349 3548.6 100 Output Total 2920 3015 3050 Balance 1429 533.6 -2950 Result Diagrams: 01/30/19 04:01 01/30/19 04:01 Additional Labs: Accuchecks 01/29/19 16:43 POC Glucose 137 H Hospitalist ROS - Review of Systems Other: unable to perform - Medication Medications: Active Medications Generic Name Dose Route Start Last Admin Trade Name Freq PRN Reason Stop Dose Admin Acetaminophen 650 mg 01/28/19 20:14 01/30/19 09:25 Tylenol Elixir PO 650 mg Q4H PRN Administration Headache/Fever/Mild Pain (1-3) Al Hydroxide/Mg Hydroxide 30 ml 01/26/19 03:46 01/26/19 04:00 Maalox PO 30 ml Q6H PRN Administration Heartburn or Indigestion Albuterol/Ipratropium 3 ml 01/26/19 10:30 01/30/19 14:07 Duoneb NEB 3 ml [id number] JUSTINO Administration Allopurinol 100 mg 01/25/19 21:00 01/29/19 21:03 Zyloprim PO 100 mg HS JUSTINO Administration Aspirin 81 mg 01/28/19 09:00 01/30/19 09:25 Ecotrin PO 81 mg DAILY JUSTINO Administration Atorvastatin Calcium 10 mg 01/25/19 09:00 01/30/19 09:25 Lipitor PO 10 mg DAILY JUSTINO Administration Enoxaparin Sodium 80 mg 01/30/19 09:00 01/30/19 09:25 Lovenox SC 80 mg 0900,2100 JUSTINO Administration Famotidine 20 mg 01/25/19 09:00 01/30/19 09:25 Pepcid SLOW IVP 20 mg QAM JUSTINO Administration Furosemide 40 mg 01/30/19 14:00 01/30/19 13:44 Lasix SLOW IVP 40 mg 0600,1400 JUSTINO Administration Gabapentin 100 mg 01/25/19 21:00 01/29/19 21:03 Neurontin PO 100 mg HS JUSTINO Administration Cefepime HCl 1 gm/ Sodium 100 mls @ 200 mls/hr 01/26/19 10:00 01/30/19 09:26 Chloride IVPB 100 mls 1000,2200 JUSTINO Administration Amiodarone HCl 450 mg/ 259 mls @ 0 mls/hr 01/27/19 17:30 01/30/19 11:05 Miscellaneous Medication 1 IVPB 259 mls each/ Dextrose/Water INF JUSTINO Administration Protocol As Directed Dextrose/Water 1,000 mls @ 75 mls/hr 01/29/19 10:30 01/30/19 15:30 D5w IV 1,000 mls .[id number] JUSTINO Administration Diltiazem HCl 125 mg/ 125 mls @ 0 mls/hr 01/29/19 12:00 01/30/19 11:05 Miscellaneous Medication 1 IVPB 125 mls each/ Sodium Chloride INF JUSTINO Administration Protocol As Directed Dexmedetomidine HCl 400 mcg/ 100 mls @ 0 mls/hr 01/30/19 14:00 01/30/19 14:42 Sodium Chloride IVPB 100 mls INF JUSTINO Administration Protocol Titrate Levothyroxine Sodium 200 mcg 01/25/19 06:00 01/30/19 05:32 Synthroid PO 200 mcg 0600 JUSTINO Administration Levothyroxine Sodium 50 mcg 01/25/19 06:00 01/30/19 05:32 Synthroid PO 50 mcg 0600 JUSTINO Administration Methylprednisolone Sodium Succinate 40 mg 01/30/19 09:00 01/30/19 09:25 Solu-Medrol IVP 40 mg DAILY JUSTINO Administration Metoclopramide HCl 10 mg 01/28/19 13:03 01/30/19 12:19 Reglan IVP 10 mg Q6H PRN Administration Nausea/Vomiting Morphine Sulfate 2 mg 01/26/19 08:41 01/27/19 12:33 Morphine SLOW IVP 02/25/19 08:41 2 mg Q1H PRN Administration BREAKTHROUGH PAIN/Agitation Potassium Chloride 20 meq 01/30/19 08:00 01/30/19 09:24 K-Dur PO 20 meq QAM-WM JUSTINO Administration Propofol 1,000 mg 01/26/19 08:41 01/30/19 14:43 Diprivan IV 02/25/19 08:41 1,000 mg INF PRN Administration TO ACHIEVE GOAL RASS Protocol Sertraline HCl 200 mg 01/25/19 09:00 01/30/19 09:25 Zoloft PO 200 mg DAILY JUSTINO Administration Sodium Chloride 10 ml 01/25/19 09:00 01/30/19 09:26 Flush - Normal Saline IVF 10 ml Q12HR JUSTINO Administration Sodium Chloride 10 ml 01/24/19 23:53 01/30/19 13:44 Flush - Normal Saline IVF 10 ml PRN PRN Administration Saline Flush - Exam Neck: negative: supple, symmetric, no JVD, no thyromegaly, no lymphadenopathy, no carotid bruit, JVD Heart: negative: RRR, no murmur, no gallops, no rubs, normal peripheral pulses, irregular, diminshed peripheral pulses, murmur present, II/IV, III/IV Respiratory: negative: CTAB, no wheezes, no rales, no ronchi, normal chest expansion, no tachypnea, normal percussion, rales, rhonchi, tachypneic, wheezes Extremities - other findings: right toe discoloration Hosp A/P (1) Acute respiratory failure with hypoxia Code(s): J96.01 - ACUTE RESPIRATORY FAILURE WITH HYPOXIA Status: Acute (2) Afib Code(s): I48.91 - UNSPECIFIED ATRIAL FIBRILLATION Status: Acute (3) HTN (hypertension) Code(s): I10 - ESSENTIAL (PRIMARY) HYPERTENSION Status: Chronic (4) Hyperlipidemia Code(s): E78.5 - HYPERLIPIDEMIA, UNSPECIFIED Status: Chronic (5) Hypothyroid Code(s): E03.9 - HYPOTHYROIDISM, UNSPECIFIED Status: Chronic (6) Lower back pain Code(s): M54.5 - LOW BACK PAIN Status: Acute - Plan will add MRI lumbar spine. Pt is not moving her right side, MRI brain ordered. will continue iv abx. pt on enoxaparin.
[2019-01-30] MEDS: Allopurinol 100 MG TAB PO SCH (20:37)
[2019-01-30] MEDS: Gabapentin 100 MG CAP PO SCH (20:37)
[2019-01-31] MEDS: Dextrose 5% in Water 1,000 ML IV SCH ×4 (04:07→21:21)
[2019-01-31] MEDS: Amiodarone 450 MG, Admixture Fee 1 EACH in Dextrose 5% in Water 250 ML IVPB SCH ×2 (04:07→21:21)
[2019-01-31] MEDS: Propofol 1,000 MG/100 ML VIAL IV PRN (04:12)
[2019-01-31 04:59] LABS: Anion Gap 13 mmol/L (10-20); BUN (Urea Nitrogen) 62 mg/dL (9.8-20.1); Calc. Creatinine Clearance 71 mL/min (70-130); Calcium 8.9 mg/dL (7.8-10.44); Carbon Dioxide 24 mmol/L (23-31); Chloride 109 mmol/L (98-107); Estimated GFR-MDRD 41; Glucose 133 mg/dL (83-110); Potassium 3.9 mmol/L (3.5-5.1); Sodium 142 mmol/L (136-145)
[2019-01-31 05:16] LABS: Band 3 % (5-11); Elliptocytes SLIGHT = 2-5 cells (100X) (0-1/hpf); Hemoglobin 11.2 g/dL (12.0-16.0); Lymphocytes 11 % (21-51); MDiff Complete? YES; Mean Corpuscular HGB CONC 31.4 g/dL (32.0-36.0); Mean Corpuscular Hemoglobin 25.1 pg (27.0-31.0); Mean Corpuscular Volume 79.9 fL (78.0-98.0); Mean Platelet Volume 7.8 fL (7.4-10.4); Monocytes 10 % (0-10); Myelocyte 1 % (0-0); Neutrophil 75 % (42-75); Nucleated RBC 1 % (0); Platelet Count 187 thou/uL (130-400); RBC Distribution Width 19.3 % (11.5-14.5); Red Blood Cell (RBC) Count 4.48 mill/uL (4.20-5.40); White Blood Cell (WBC) Count 17.6 thou/uL (4.8-10.8)
[2019-01-31] MEDS: Levothyroxine Sodium 100 MCG TAB PO SCH (06:09)
[2019-01-31] MEDS: Metoclopramide HCl 10 MG/2 ML VIAL IVP PRN ×2 (06:09→14:13)
[2019-01-31] MEDS: Furosemide 40 MG/4 ML VIAL SLOW IVP SCH ×2 (06:09→14:00)
[2019-01-31] MEDS: Levothyroxine Sodium 50 MCG TAB PO SCH (06:10)
[2019-01-31 07:46] LABS: Actual Bicarbonate (HCO3a) 24.6 mEq/L (22-28); Base Excess (BEa) 0.9 mEq/L (-2.0 to +3.0); CO2 Tension 36.2 mmHg (35.0-45.0); Calcium, Ionized 1.18 mmol/L (1.12-1.30); Hemoglobin (Hb) 11.9 g/dL (12.0-16.0); O2 Tension (PaO2) 63.4 mmHg (> 70.0); Potassium - ABG Lab 3.91 mmol/L (3.70-5.30); pH, Arterial 7.45 (7.35-7.45)
[2019-01-31 07:53] LABS: Puncture Site L.R.
--- NOTE | 2019-01-31 07:54 | PRG ---
DATE OF SERVICE: 01/31/2019 SUBJECTIVE: Na Hahn, this morning, is apparently a little bit more appropriate. She is moving all 4 extremities. She is on Precedex and Diprivan. OBJECTIVE: VITAL SIGNS: Pulse 98, sats _95%, blood pressure 130/82. I's and O's have been consistently negative. CHEST: Decreased breath sounds. No wheezing or crackles. CARDIAC: SVT. ABDOMEN: Soft. LABORATORY DATA: Creatinine and BUN have improved. White count is 17,000. IMPRESSION: 1. Respiratory failure, chronic obstructive pulmonary disease, sleep apnea. 2. Metabolic encephalopathy, renal failure. MRI being ordered today. We will hopefully start weaning slowly. Otherwise, continue PT, supportive care. Empiric antibiotics. DVT prophylaxis. One-half hour of critical care time. Job ID: [id number] MTDD
--- NOTE | 2019-01-31 08:51 | MRI ---
EXAM: MRI of the brain without contrast HISTORY: Right-sided weakness COMPARISON: None TECHNIQUE: Multiplanar multisequence MR images were obtained of the brain without IV contrast. FINDINGS: This exam is limited secondary to motion artifact. The brain demonstrates normal signal intensity on all obtained sequences. No restricted diffusion. No hydronephrosis. No extra-axial fluid collection or intracranial hemorrhage. The expected flow voids are present. Corpus callosum, pituitary, and craniocervical junction are within normal limits. The calvarium and overlying soft tissues are unremarkable. The paranasal sinuses and mastoid air cells are well aerated. IMPRESSION: No evidence of acute intracranial abnormality.
--- NOTE | 2019-01-31 08:54 | PRG ---
DATE OF SERVICE: 01/31/2019 SUBJECTIVE: Ms. Hahn is a 78-year-old white female, admitted for mental status change as well as for sepsis. Renal Service has been following her up for acute kidney injury that was hemodynamically-mediated renal dysfunction. The patient has been having mentation problems as well as decreased activity on the right side of the body. For this reason, MRI of the brain and spinal cord has been ordered. OBJECTIVE: VITAL SIGNS: Blood pressure is noted at 123/66, heart rate 99, respiratory rate 7, and O2 saturation 92%. GENERAL: The patient is awake, alert, comfortable, not in distress. SKIN: Adequate turgor. HEENT: She has pinkish conjunctivae. Anicteric sclerae. NECK: No neck mass. No carotid bruits. No JVD. CHEST: No deformities. LUNGS: Clear breath sounds. HEART: Normal sinus rhythm. No murmurs. No gallops. No rubs. ABDOMEN: Globular, soft, and nontender. No masses. EXTREMITIES: Positive for edema. No deformities. Please note, the patient is still intubated on ventilator support. MEDICATIONS: Medications of January 31, 2019, reviewed. LABORATORY DATA: Laboratories of January 31, 2019; white count 17.6, hemoglobin 11.2. Sodium 142, potassium 3.9, chloride 109, carbon dioxide 24, BUN 62, creatinine 1.28, glucose 133, and calcium 8.9. ASSESSMENT AND PLAN: 1. Acute kidney injury - superimposed hemodynamically-mediated renal dysfunction on top of her chronic renal failure. Continue supportive care. Continue gentle volume repletion. 2. Hypernatremia, improving with previous half-normal saline. 3. Congestive heart failure - currently on furosemide. 4. Decreased mentation - decreased motor right side - for MRI of the brain as well as of the spinal cord. Agree with current management. Job ID: [id number]
--- NOTE | 2019-01-31 09:20 | MRI ---
MRI Lumbar Spine WO Con History: Low back pain. Comparison: Lumbar spine radiographs January 25, 2019 Findings: The aortic contour is nonaneurysmal. There is moderate symmetric bilateral paraspinal muscl e atrophy with low-grade muscle edema at L4/L5. No hydronephrosis. No retroperitoneal periaortic adenopathy. The conus medullaris terminates near the inferior L1 endplate. Abnormal narrowing of the interspinous space from L2-L5 with sclerosis and subcortical cyst formation as well as adventitial bursa effusions. Modic type II endplate changes at L3/L4. Old compression deformity superior endplate of T11. Levels are as follows: L1/L2: Mild degenerative disc space height loss. Moderate hypertrophic facet arthropathy. Circumferen tial disc osteophyte complex causes mild bilateral neural foraminal narrowing. L2/L3: Moderate degenerative disc space height loss. Moderate circumferential disc osteophyte complex . Moderate hypertrophic facet arthropathy with left facet joint effusion. Moderate bilateral neural foraminal narrowing. Mild effacement of the ventral CSF space with the spinal canal measuring approxi mately 9 mm. L3/L4: Moderate posterior degenerative disc space height loss. There is a asymmetric right lateral re cess and subforaminal disc osteophyte complex causing moderate to severe right neural foraminal narrowing with abutment of the right exiting and traversing nerve root. Small left subforaminal disc osteophyte complex causes moderate left neural foraminal narrowing. Severe right and moderate left hypertrophic facet arthropathy also contributes to the neural foraminal narrowing. L4/L5: There is mild degenerative disc space height loss. Large facet joint effusions. Hypertrophic f acet osteophytes are present bilaterally. Broad-based posterior disc osteophyte complex. Moderate to severe left and right neural foraminal penny rowing abutment of both exiting and traversing nerve roots. Mild ligamentum flavum hypertrophy. The spinal canal measures approximately 9 mm. L5/S1: Severe degenerative disc space height loss. Large circumferential disc osteophyte complex. Sev ere hypertrophic facet arthrosis. Severe neural foraminal narrowing bilaterally with abutment of both exiting and traversing nerve roots. Impression: High-grade multilevel spondylosis with nerve root abutment as described greatest in the l er lumbar spine.
[2019-01-31] MEDS: methylPREDNISolone Sod Succ 40 MG VIAL IVP SCH (09:59)
[2019-01-31] MEDS: Potassium Chloride 20 MEQ TAB PO SCH (09:59)
[2019-01-31] MEDS: Aspirin 81 mg Enteric Coated Tablet PO SCH (09:59)
[2019-01-31] MEDS: Enoxaparin Sodium 80 MG/0.8 ML SYRINGE SC SCH ×2 (10:00→21:20)
[2019-01-31] MEDS: Famotidine/PF 20 mg/2ml Vial SLOW IVP SCH (10:01)
[2019-01-31] MEDS: Atorvastatin Calcium 10 MG TAB PO SCH (10:04)
[2019-01-31] MEDS: Cefepime 1 GM in Sodium Chloride 0.9% 100 ML IVPB SCH ×2 (10:04→21:21)
[2019-01-31 10:37] LABS: Free T4 (Free Thyroxine) 0.91 ng/dL (0.70-1.48); Thyroid Stimulating Hormone 0.5687 uIU/mL (0.35-4.94)
[2019-01-31] MEDS ORDERED: DC Sedation Protocol FS ONE (11:23)
[2019-01-31] MEDS: Diltiazem HCl 125 MG, Admixture Fee 1 EACH in Sodium Chloride 0.9% 100 ML IVPB SCH (16:45)
--- NOTE | 2019-01-31 17:47 | PDOC.HOSPP ---
- Subjective Encounter Date: 01/31/19 Encounter Time: 10:30 Subjective: pt up in bed extubated. - Objective Vital Signs & Weight: Vital Signs (12 hours) Temp Pulse Pulse Resp BP BP BP 01/31/19 16:00 01/31/19 14:37 102 H 14 01/31/19 14:11 90 96/71 123/79 01/31/19 12:00 01/31/19 11:35 01/31/19 11:18 01/31/19 11:14 101 H 17 01/31/19 10:00 17 01/31/19 08:00 01/31/19 07:30 84 123/66 01/31/19 07:29 99 7 L 01/31/19 06:00 100.2 F H 18 Pulse Ox Pulse Ox 01/31/19 16:00 94 L 01/31/19 14:37 95 01/31/19 14:11 94 L 01/31/19 12:00 94 L 01/31/19 11:35 94 L 01/31/19 11:18 94 L 01/31/19 11:14 93 L 01/31/19 10:00 01/31/19 08:00 93 L 01/31/19 07:30 01/31/19 07:29 92 L 01/31/19 06:00 Weight Admit Weight 261 lb 0.32 oz Weight 259 lb 0.69 oz Most Recent Monitor Data Heart Rate from ECG 96 NIBP 129/99 NIBP BP-Mean 109 Respiration from ECG 19 SpO2 95 I&O: 01/30/19 01/31/19 02/01/19 06:59 06:59 06:59 Intake Total 3548.6 3484.2 261.6 Output Total 3015 4945 2521 Balance 533.6 -1460.8 -2259.4 Result Diagrams: 01/31/19 03:54 01/31/19 03:54 Hospitalist ROS - Review of Systems Cardiovascular: denies: chest pain, palpitations, orthopnea, paroxysmal noc. dyspnea, edema, light headedness, other Gastrointestinal: denies: nausea, vomiting, abdominal pain, diarrhea, constipation, melena, hematochezia, other Genitourinary: denies: dysuria, frequency, incontinence, hematuria, retention, other - Medication Medications: Active Medications Generic Name Dose Route Start Last Admin Trade Name Freq PRN Reason Stop Dose Admin Acetaminophen 650 mg 01/28/19 20:14 01/30/19 23:19 Tylenol Elixir PO 650 mg Q4H PRN Administration Headache/Fever/Mild Pain (1-3) Al Hydroxide/Mg Hydroxide 30 ml 01/26/19 03:46 01/26/19 04:00 Maalox PO 30 ml Q6H PRN Administration Heartburn or Indigestion Albuterol/Ipratropium 3 ml 01/26/19 10:30 01/31/19 14:37 Duoneb NEB 3 ml [id number] JUSTINO Administration Aspirin 81 mg 01/28/19 09:00 01/31/19 09:59 Ecotrin PO 81 mg DAILY JUSTINO Administration Atorvastatin Calcium 10 mg 01/25/19 09:00 01/31/19 10:04 Lipitor PO 10 mg DAILY JUSTINO Administration Enoxaparin Sodium 80 mg 01/30/19 09:00 01/31/19 10:00 Lovenox SC 80 mg 0900,2100 JUSTINO Administration Famotidine 20 mg 01/25/19 09:00 01/31/19 10:01 Pepcid SLOW IVP 20 mg QAM JUSTINO Administration Furosemide 40 mg 01/30/19 14:00 01/31/19 14:00 Lasix SLOW IVP 40 mg 0600,1400 JUSTINO Administration Cefepime HCl 1 gm/ Sodium 100 mls @ 200 mls/hr 01/26/19 10:00 01/31/19 10:04 Chloride IVPB 100 mls 1000,2200 JUSTINO Administration Amiodarone HCl 450 mg/ 259 mls @ 0 mls/hr 01/27/19 17:30 01/31/19 04:07 Miscellaneous Medication 1 IVPB 259 mls each/ Dextrose/Water INF JUSTINO Administration Protocol As Directed Diltiazem HCl 125 mg/ 125 mls @ 0 mls/hr 01/29/19 12:00 01/31/19 16:45 Miscellaneous Medication 1 IVPB 125 mls each/ Sodium Chloride INF JUSTINO Administration Protocol As Directed Dexmedetomidine HCl 400 mcg/ 100 mls @ 0 mls/hr 01/30/19 14:00 01/31/19 00:46 Sodium Chloride IVPB 100 mls INF JUSTINO Administration Protocol Titrate Levothyroxine Sodium 200 mcg 01/25/19 06:00 01/31/19 06:09 Synthroid PO 200 mcg 0600 JUSTINO Administration Levothyroxine Sodium 50 mcg 01/25/19 06:00 01/31/19 06:10 Synthroid PO 50 mcg 0600 JUSTINO Administration Methylprednisolone Sodium Succinate 40 mg 01/30/19 09:00 01/31/19 09:59 Solu-Medrol IVP 40 mg DAILY JUSTINO Administration Metoclopramide HCl 10 mg 01/28/19 13:03 01/31/19 14:13 Reglan IVP 10 mg Q6H PRN Administration Nausea/Vomiting Potassium Chloride 20 meq 01/30/19 08:00 01/31/19 09:59 K-Dur PO 20 meq QAM-WM JUSTINO Administration Propofol 1,000 mg 01/26/19 08:41 01/31/19 04:12 Diprivan IV 02/25/19 08:41 1,000 mg INF PRN Administration TO ACHIEVE GOAL RASS Protocol Sodium Chloride 10 ml 01/25/19 09:00 01/31/19 10:04 Flush - Normal Saline IVF 10 ml Q12HR JUSTINO Administration Sodium Chloride 10 ml 01/24/19 23:53 01/30/19 13:44 Flush - Normal Saline IVF 10 ml PRN PRN Administration Saline Flush - Exam Heart: negative: RRR, no murmur, no gallops, no rubs, normal peripheral pulses, irregular, diminshed peripheral pulses, murmur present, II/IV, III/IV Respiratory: negative: CTAB, no wheezes, no rales, no ronchi, normal chest expansion, no tachypnea, normal percussion, rales, rhonchi, tachypneic, wheezes Gastrointestinal: negative: soft, non-tender, non-distended, normal bowel sounds , no palpable masses, no hepatomegaly, no splenomegaly, no bruit, no guarding, no rigidity, tender to palpation, distended, diminished bowl sounds, voluntary guarding Extremities - other findings: right toe discoloration Hosp A/P (1) Acute respiratory failure with hypoxia Code(s): J96.01 - ACUTE RESPIRATORY FAILURE WITH HYPOXIA Status: Acute (2) Afib Code(s): I48.91 - UNSPECIFIED ATRIAL FIBRILLATION Status: Acute (3) HTN (hypertension) Code(s): I10 - ESSENTIAL (PRIMARY) HYPERTENSION Status: Chronic (4) Hyperlipidemia Code(s): E78.5 - HYPERLIPIDEMIA, UNSPECIFIED Status: Chronic (5) Hypothyroid Code(s): E03.9 - HYPOTHYROIDISM, UNSPECIFIED Status: Chronic (6) Lower back pain Code(s): M54.5 - LOW BACK PAIN Status: Acute - Plan will add MRI lumbar spine. Pt is not moving her right side, MRI brain ordered. will continue iv abx. pt on enoxaparin. 01/31 pt extubated doing well. mri brain is negative, mri lumbar high grade multilevel spondylosis. leukocytosis will follow.
--- NOTE | 2019-01-31 23:12 | ULT ---
RIGHT LOWER EXTREMITY ARTERIAL DOPPLER ULTRASOUND: 01/31/19 HISTORY: Right foot discoloration. TECHNIQUE: Multiplanar sullivan scale sonographic imaging of the arterial structures of the right lower extremity ob tained with color flow and spectral analysis. The right common femoral artery, superficial femoral artery, profunda femoral artery, popliteal arter y, [employer], DTA, and MILI are patent. Abnormal monophasic waveforms are noted throughout the right lower e xtremity suggesting hemodynamically significant stenosis within the pelvis or abdomen. IMPRESSION: Arterial structures of the right lower extremity are patent but demonstrate abnormal monophasic wavef orm suggesting upstream stenosis within the abdomen/pelvis. Recommend CT angiogram of the abdomen an d pelvis and bilateral lower extremities utilizing a runoff protocol. POS: ROMÁN
[2019-02-01] MEDS: Furosemide 40 MG/4 ML VIAL SLOW IVP SCH ×2 (05:10→14:43)
[2019-02-01] MEDS: Levothyroxine Sodium 100 MCG TAB PO SCH (05:11)
[2019-02-01] MEDS: Levothyroxine Sodium 50 MCG TAB PO SCH (05:11)
[2019-02-01 05:54] LABS: Anion Gap 16 mmol/L (10-20); BUN (Urea Nitrogen) 58 mg/dL (9.8-20.1); Calc. Creatinine Clearance 72 mL/min (70-130); Calcium 9.2 mg/dL (7.8-10.44); Carbon Dioxide 24 mmol/L (23-31); Chloride 106 mmol/L (98-107); Estimated GFR-MDRD 44; Glucose 93 mg/dL (83-110); Potassium 3.4 mmol/L (3.5-5.1); Sodium 143 mmol/L (136-145)
[2019-02-01 06:16] LABS: Anisocytosis SLIGHT = 6-15 cells (100X) (0-5/hpf); Band 3 % (5-11); Elliptocytes SLIGHT = 2-5 cells (100X) (0-1/hpf); Hemoglobin 12.1 g/dL (12.0-16.0); Lymphocytes 14 % (21-51); MDiff Complete? YES; Mean Corpuscular Hemoglobin 24.4 pg (27.0-31.0); Mean Corpuscular Volume 81.3 fL (78.0-98.0); Mean Platelet Volume 9.8 fL (7.4-10.4); Monocytes 5 % (0-10); Neutrophil 78 % (42-75); Platelet Count 221 thou/uL (130-400); Platelet Morphology Comment Appears Adequate; RBC Distribution Width 19.9 % (11.5-14.5); Red Blood Cell (RBC) Count 4.95 mill/uL (4.20-5.40); White Blood Cell (WBC) Count 27.2 thou/uL (4.8-10.8)
--- NOTE | 2019-02-01 07:47 | RAD ---
Portable frontal chest radiograph: 02/01/2019 COMPARISON: 01/29/2019 HISTORY: COPD FINDINGS: Shallow inspiration, patient body habitus, portable technique, and rotation to the right li greyson detailed assessment of the chest. Endotracheal tube and nasogastric tube have been removed since the prior exam. Midline sternotomy wires are present. Blunting of the right costophrenic angle suggests small volume right pleural effusion. Hazy bibasilar increased density noted which may signify infiltrate or volume loss. PA and lateral imaging of the chest advised. IMPRESSION: Limited assessment of the chest demonstrating increased density within both lung bases as detailed above.
[2019-02-01] MEDS: Atorvastatin Calcium 10 MG TAB PO SCH (08:18)
[2019-02-01] MEDS: Potassium Chloride 20 MEQ TAB PO SCH (08:18)
[2019-02-01] MEDS: Famotidine/PF 20 mg/2ml Vial SLOW IVP SCH (08:18)
[2019-02-01] MEDS: methylPREDNISolone Sod Succ 40 MG VIAL IVP SCH (08:18)
[2019-02-01] MEDS: Aspirin 81 mg Enteric Coated Tablet PO SCH (08:19)
[2019-02-01] MEDS: Enoxaparin Sodium 80 MG/0.8 ML SYRINGE SC SCH ×2 (08:19→21:19)
[2019-02-01] MEDS ORDERED: methylPREDNISolone Sod Succ 40 MG VIAL IVP SCH (09:00)
--- NOTE | 2019-02-01 09:11 | PRG ---
DATE OF SERVICE: 02/01/2019 SUBJECTIVE: This morning, she is awake, alert, responsive, was extubated yesterday. OBJECTIVE: VITAL SIGNS: Temperature is 97.8, high flow 96%. Respiratory rate 18, blood pressure 107/73. I's and O's consistently negative. CHEST: Decreased breath sounds. No wheezing. CARDIAC: Normal S1, S2. No gallops. ABDOMEN: No masses. LABORATORY DATA: Creatinine is 1.2. White count 27,000, slight left shift. X-ray shows some haziness in the left chest. IMPRESSION: Morbid obesity, multiorgan failure, sleep apnea, supraventricular tachycardia, chronic obstructive pulmonary disease, encephalopathy, peripheral vascular disease, azotemia. PLAN: Minimize sedation. Continue aggressive PT. Long-term prognosis is grave. She probably needs to go to some kind of rehab. Once again, we need to discuss the code status. One-half hour of critical time. Job ID: [id number]
--- NOTE | 2019-02-01 09:12 | PRG ---
DATE OF SERVICE: 02/01/2019 SUBJECTIVE: Ms. Hahn is a 78-year-old white female, who was seen for an acute kidney injury that was hemodynamically-mediated renal dysfunction. IV hydration was given with improvement of the renal function. In addition, this patient has been off her Naprosyn as well as her Entresto. This has helped improved the renal function. Please note, we continue to hold off her spironolactone. She is currently on low dose of furosemide at 40 mg IV q.12. She remains extubated. No other complaints today. OBJECTIVE: VITAL SIGNS: Blood pressure is 107/73, heart rate 99, respiratory rate 14, O2 saturation 97%. GENERAL: Noted to be awake, alert, comfortable on nasal CPAP. HEENT: Pinkish conjunctivae. Anicteric sclerae. NECK: No neck mass. No carotid bruits. No JVD. CHEST: No deformities. LUNGS: Decreased breath sounds. HEART: Normal sinus rhythm. No murmurs, gallops, or rubs. ABDOMEN: Globular, soft, nontender. No masses. EXTREMITIES: No edema. No deformities. MEDICATIONS: Medications of February 01, 2019, was reviewed. LABORATORY DATA: Laboratories of February 01, 2019; white count 27.2, hemoglobin 12.1. Sodium 143, potassium 3.4, chloride 106, carbon dioxide 24, BUN 58, creatinine 1.2, calcium 9.2. TSH 0.5. ASSESSMENT AND PLAN: Acute kidney injury-has superimposed hemodynamically-mediated renal dysfunction much improved with IV hydration. Currently, she has been resumed on her diuretics. Continue to hold off her Entresto as well as NSAIDs. No indication for any dialytic intervention. Agree with current management. Job ID: [id number]
--- NOTE | 2019-02-01 10:52 | PDOC.PALCO ---
Palliative Care Consult - Consult Details Requesting Physician: Dr Hobbs Reason for Consult: advance directives assistance, complex decision-making Family Members Present: None - Pertinent HPI 78 year old female with a long standing cardiovascular and pulmonary disease history. Presented to the emergency via EMS from home with complaints of lower extremity pain, back pain and hypotension grater than one week, as per record review. Patient was admitted for IV hydration and further medical management, during initial aspect of patient hospital stay she required mechanical ventilation secondary to loss of airway. Was successfully extubated, and is currently patient is on Bipap, intermittently refusing PT and voicing desire " to go home". Guarded. - Pertinent PMH Heart Failure, CAD, HDL, Afib, O2 dependent at home - Social History Smoking Status: Former smoker Smoking: quit greater than 1 year Alcohol Use: none Drug Use History: none Living Situation: independent - Medications MAR Reviewed: Yes - Allergies Allergies/Adverse Reactions: Allergies Allergy/AdvReac Type Severity Reaction Status Date / Time No Known Allergies Allergy Verified 01/23/17 00:13 - ROS Constitutional: alert, weakness Eyes: other (denies blurry vision, ocular irritation) ENT: alteration in dentition Respiratory: shortness of breath (cough) Cardiology: other (negative for chest pain, palpitations) Gastrointestinal: other (denies abdominal pain, nausea) Musculoskeletal: other (intermittant back pain) - Objective Vital Signs: Vital Signs - Most Recent Temp Pulse Resp BP Pulse Ox 97.4 F L 99 17 96/71 96 02/01/19 07:00 02/01/19 07:38 02/01/19 07:38 01/31/19 14:11 02/01/19 07:39 Palliative Performance Scale: 30 - Advance Directives Medical Power of Bone Drier: Patient son - Physical Exam Constitutional: ill appearing HEENT: EOMI, moist MMs, sclera anicteric Respiratory: labored respirations Cardiovascular: RRR Gastrointestinal: positive bowel sounds Genitourinary: singh catheter Musculoskeletal: no cyanosis, no clubbing, pulses present Neurology: moves all 4 limbs Skin: cap refill <2 seconds, normal turgor Psychiatric: normal affect, depressed - Problem List (1) Palliative care encounter Code(s): Z51.5 - ENCOUNTER FOR PALLIATIVE CARE Current Visit: Yes Status: Acute (2) Physical deconditioning Code(s): R53.81 - OTHER MALAISE Current Visit: Yes Status: Acute (3) Acute kidney injury Code(s): N17.9 - ACUTE KIDNEY FAILURE, UNSPECIFIED Current Visit: Yes Status : Acute (4) Acute respiratory failure with hypoxia Code(s): J96.01 - ACUTE RESPIRATORY FAILURE WITH HYPOXIA Current Visit: Yes Status: Acute (5) Lower back pain Code(s): M54.5 - LOW BACK PAIN Current Visit: Yes Status: Acute (6) Acute exacerbation of CHF (congestive heart failure) Code(s): I50.9 - HEART FAILURE, UNSPECIFIED Current Visit: No Status: Acute - Plan/Recommendations Plan: Conversation with patient states she desires to go home. Noman Rebollar RNrail transportation operator is also discussing with the patient son and if assistance can be provided in the home setting secondary to physical deconditioning and patient inability to care for herself at home. Patient dog is Ericka and she is wanting to go home to him. *Patient friend to come visit and provide information about Ericka *Noman Gutierrez RN communicating with patient son *Will meet with Dr Hobbs in the morning to discuss goals of care and rehab prior to decision in relation to keno terminal operator goal of home and possible hospice. *Concern is patient O2 need at she is currently on high flow O2 *A Nghia/registrar Palliative Care providing therapeutic support [75] minutes spent on this encounter with >50% of the time in counseling and coordination of care. Thank you for this very appropriate consult.
[2019-02-01 11:31] LABS: Bilirubin Negative (Negative); Blood, Urine 1+ (Negative); Clarity Clear (Clear); Glucose, Urine (Dipstick) Normal (Negative); Leukocyte Negative Leu/uL (Negative); Nitrite Negative (Negative); Protein, Urine (Dipstick) 10 mg/dL (Neg-Trace); RBC/HPF 0-3 HPF (0-3); Squamous Epithelial 0-3 HPF (0-3); Urobilinogen Normal mg/dL (Less than 2); WBC/HPF 0-3 HPF (0-3)
[2019-02-01 11:34] LABS: Bacteria/HPF 1+ HPF (None Seen)
[2019-02-01 11:35] LABS: Urine Culture Reflex Yes Yes
[2019-02-01] MEDS ORDERED: Potassium Chloride 20 MEQ TAB PO SCH (13:45)
[2019-02-01] MEDS: Amiodarone 450 MG, Admixture Fee 1 EACH in Dextrose 5% in Water 250 ML IVPB SCH (14:42)
[2019-02-01] MEDS: Dextrose 5% in Water 1,000 ML IV SCH (14:43)
[2019-02-01] MEDS: Diltiazem HCl 125 MG, Admixture Fee 1 EACH in Sodium Chloride 0.9% 100 ML IVPB SCH (14:43)
[2019-02-02 04:44] LABS: Anion Gap 13 mmol/L (10-20); BUN (Urea Nitrogen) 57 mg/dL (9.8-20.1); Calc. Creatinine Clearance 62 mL/min (70-130); Calcium 9.1 mg/dL (7.8-10.44); Carbon Dioxide 25 mmol/L (23-31); Chloride 103 mmol/L (98-107); Estimated GFR-MDRD 37; Glucose 121 mg/dL (83-110); Potassium 3.2 mmol/L (3.5-5.1); Sodium 138 mmol/L (136-145)
[2019-02-02 04:58] LABS: Anisocytosis SLIGHT = 6-15 cells (100X) (0-5/hpf); Band 4 % (5-11); Elliptocytes SLIGHT = 2-5 cells (100X) (0-1/hpf); Eosinophils 1 % (0-10); Hemoglobin 12.1 g/dL (12.0-16.0); Hypochromia SLIGHT = 6-15 cells (100X) (0-5/hpf); Large Platelets SLIGHT; Lymphocytes 6 % (21-51); MDiff Complete? YES; Mean Corpuscular Hemoglobin 24.6 pg (27.0-31.0); Mean Corpuscular Volume 79.6 fL (78.0-98.0); Mean Platelet Volume 8.3 fL (7.4-10.4); Monocytes 4 % (0-10); Myelocyte 6 % (0-0); Neutrophil 79 % (42-75); Platelet Count 242 thou/uL (130-400); Platelet Morphology Comment Appears Adequate; RBC Distribution Width 19.6 % (11.5-14.5); White Blood Cell (WBC) Count 26.7 thou/uL (4.8-10.8)
[2019-02-02] MEDS: Levothyroxine Sodium 50 MCG TAB PO SCH (06:22)
[2019-02-02] MEDS: Levothyroxine Sodium 100 MCG TAB PO SCH (06:22)
[2019-02-02] MEDS: Furosemide 40 MG/4 ML VIAL SLOW IVP SCH (06:22)
--- NOTE | 2019-02-02 07:32 | PDOC.HOSPP ---
- Subjective Encounter Date: 02/01/19 Encounter Time: 13:30 Subjective: pt up in bed oriented x2 - Objective Vital Signs & Weight: Vital Signs (12 hours) Temp Pulse Resp Pulse Ox 02/02/19 07:00 98.2 F 02/02/19 04:00 97.9 F 02/02/19 02:15 90 16 98 02/02/19 00:00 98.0 F 02/01/19 22:17 99 16 98 02/01/19 20:00 98.5 F 99 Weight Admit Weight 261 lb 0.32 oz Weight 250 lb 0.067 oz Most Recent Monitor Data Heart Rate from ECG 103 NIBP 163/105 NIBP BP-Mean 124 Respiration from ECG 17 SpO2 96 I&O: 02/01/19 02/02/19 02/03/19 06:59 06:59 06:59 Intake Total 2285.8 3385.9 Output Total 4106 2625 40 Balance -1820.2 760.9 -40 Result Diagrams: 02/04/19 04:05 02/04/19 04:05 Hospitalist ROS - Review of Systems Cardiovascular: denies: chest pain, palpitations, orthopnea, paroxysmal noc. dyspnea, edema, light headedness, other Gastrointestinal: denies: nausea, vomiting, abdominal pain, diarrhea, constipation, melena, hematochezia, other - Medication Medications: Active Medications Generic Name Dose Route Start Last Admin Trade Name Freq PRN Reason Stop Dose Admin Acetaminophen 650 mg 01/28/19 20:14 01/30/19 23:19 Tylenol Elixir PO 650 mg Q4H PRN Administration Headache/Fever/Mild Pain (1-3) Al Hydroxide/Mg Hydroxide 30 ml 01/26/19 03:46 01/26/19 04:00 Maalox PO 30 ml Q6H PRN Administration Heartburn or Indigestion Albuterol/Ipratropium 3 ml 01/26/19 10:30 02/02/19 02:15 Duoneb NEB 3 ml [id number] JUSTINO Administration Aspirin 81 mg 01/28/19 09:00 02/01/19 08:19 Ecotrin PO 81 mg DAILY JUSTINO Administration Atorvastatin Calcium 10 mg 01/25/19 09:00 02/01/19 08:18 Lipitor PO 10 mg DAILY JUSTINO Administration Enoxaparin Sodium 80 mg 01/30/19 09:00 12/11/19 21:19 Lovenox SC 80 mg 0900,2100 JUSTINO Administration Famotidine 20 mg 01/25/19 09:00 02/01/19 08:18 Pepcid SLOW IVP 20 mg QAM JUSTINO Administration Furosemide 40 mg 01/30/19 14:00 02/02/19 06:22 Lasix SLOW IVP 40 mg 0600,1400 JUSTINO Administration Amiodarone HCl 450 mg/ 259 mls @ 0 mls/hr 01/27/19 17:30 02/01/19 14:42 Miscellaneous Medication 1 IVPB 259 mls each/ Dextrose/Water INF JUSTINO Administration Protocol As Directed Diltiazem HCl 125 mg/ 125 mls @ 0 mls/hr 01/29/19 12:00 02/01/19 14:43 Miscellaneous Medication 1 IVPB 125 mls each/ Sodium Chloride INF JUSTINO Administration Protocol As Directed Dextrose/Water 1,000 mls @ 50 mls/hr 01/31/19 17:15 02/01/19 14:43 D5w IV Not Given .Q20H JUSTINO Levothyroxine Sodium 200 mcg 01/25/19 06:00 02/02/19 06:22 Synthroid PO 200 mcg 0600 JUSTINO Administration Levothyroxine Sodium 50 mcg 01/25/19 06:00 02/02/19 06:22 Synthroid PO 50 mcg 0600 JUSTINO Administration Methylprednisolone Sodium Succinate 20 mg 02/01/19 09:00 02/01/19 09:53 Solu-Medrol IVP Not Given DAILY JUSTINO Metoclopramide HCl 10 mg 01/28/19 13:03 01/31/19 14:13 Reglan IVP 10 mg Q6H PRN Administration Nausea/Vomiting Potassium Chloride 20 meq 01/30/19 08:00 02/01/19 08:18 K-Dur PO 20 meq QAM-WM JUSTINO Administration Propofol 1,000 mg 01/26/19 08:41 01/31/19 04:12 Diprivan IV 02/25/19 08:41 1,000 mg INF PRN Administration TO ACHIEVE GOAL RASS Protocol Sertraline HCl 100 mg 02/01/19 09:00 02/01/19 08:19 Zoloft PO 100 mg DAILY JUSTINO Administration Sodium Chloride 10 ml 01/25/19 09:00 12/11/19 21:19 Flush - Normal Saline IVF 10 ml Q12HR JUSTINO Administration Sodium Chloride 10 ml 01/24/19 23:53 01/30/19 13:44 Flush - Normal Saline IVF 10 ml PRN PRN Administration Saline Flush - Exam Heart: negative: RRR, no murmur, no gallops, no rubs, normal peripheral pulses, irregular, diminshed peripheral pulses, murmur present, II/IV, III/IV Respiratory: wheezes Gastrointestinal: negative: soft, non-tender, non-distended, normal bowel sounds , no palpable masses, no hepatomegaly, no splenomegaly, no bruit, no guarding, no rigidity, tender to palpation, distended, diminished bowl sounds, voluntary guarding Extremities - other findings: left toe discoloration Hosp A/P (1) Acute respiratory failure with hypoxia Code(s): J96.01 - ACUTE RESPIRATORY FAILURE WITH HYPOXIA Status: Acute (2) Afib Code(s): I48.91 - UNSPECIFIED ATRIAL FIBRILLATION Status: Acute (3) HTN (hypertension) Code(s): I10 - ESSENTIAL (PRIMARY) HYPERTENSION Status: Chronic (4) Hyperlipidemia Code(s): E78.5 - HYPERLIPIDEMIA, UNSPECIFIED Status: Chronic (5) Hypothyroid Code(s): E03.9 - HYPOTHYROIDISM, UNSPECIFIED Status: Chronic (6) Lower back pain Code(s): M54.5 - LOW BACK PAIN Status: Acute - Plan will add MRI lumbar spine. Pt is not moving her right side, MRI brain ordered. will continue iv abx. pt on enoxaparin. 01/31 pt extubated doing well. mri brain is negative, mri lumbar high grade multilevel spondylosis. leukocytosis will follow. 02/01 pt doing well on high flow oxygen. her arterial doppler indicated possible stenosis but to do a cT runoff will need contrast. Her creatinine is improving. will talk with nephro if ok to do so. will talk to pt and pt's son. will discuss goals of care in am with palliative. pt appears very depressed.
[2019-02-02] MEDS ORDERED: Digoxin 0.5 MG/2 ML AMP SLOW IVP SCH (08:15)
[2019-02-02] MEDS ORDERED: DC Sedation Protocol FS ONE (08:46)
--- NOTE | 2019-02-02 08:48 | PRG ---
DATE OF SERVICE: 02/02/2019 SUBJECTIVE: Ms. Hahn is awake and alert. She has no chest pain or pressure. OBJECTIVE: VITAL SIGNS: Blood pressure 160/100 and pulse 110. LUNGS: Clear. CARDIAC: Irregularly irregular. ABDOMEN: Soft and nontender. EXTREMITIES: No edema. PERTINENT LABORATORY DATA: Hemoglobin is 12. Creatinine is 1.4. ASSESSMENT: 1. Diastolic heart failure. 2. Atrial fibrillation, difficult to control rate. PLAN: 1. She is on enoxaparin. 2. She is on amiodarone intravenously. 3. Intravenous diltiazem. 4. Resume digoxin. 5. She is on intravenous furosemide. 6. Try to change to oral Cardizem. Job ID: [id number]
[2019-02-02] MEDS: Potassium Chloride 20 MEQ TAB PO SCH (08:52)
[2019-02-02] MEDS: Famotidine/PF 20 mg/2ml Vial SLOW IVP SCH (08:57)
[2019-02-02] MEDS: Enoxaparin Sodium 80 MG/0.8 ML SYRINGE SC SCH ×2 (08:58→21:02)
[2019-02-02] MEDS: Aspirin 81 mg Enteric Coated Tablet PO SCH (08:59)
[2019-02-02] MEDS: Atorvastatin Calcium 10 MG TAB PO SCH (08:59)
[2019-02-02] MEDS ORDERED: Furosemide 40 MG/4 ML VIAL SLOW IVP SCH (09:00)
[2019-02-02] MEDS: Cefdinir 300 MG CAP PO SCH ×2 (09:01→20:57)
--- NOTE | 2019-02-02 09:02 | PRG ---
DATE OF SERVICE: 02/02/2019 SUBJECTIVE: Ms. Hahn is a 78-year-old white female, who is being followed by the Renal Service for her acute kidney injury on top of possible chronic renal failure. Renal function has slowly been improving. She was started on diuretics a few days ago. Creatinine noted to be at 1.4, which is slightly higher from yesterday's value of 1.20. We will hold off the furosemide in anticipation of a planned arteriogram. Consider gentle volume repletion just prior to the said arteriogram. I feel that she will tolerate this from Renal point of view. No new complaints. No chest pain or worsening shortness of breath. OBJECTIVE: VITAL SIGNS: Blood pressure is 163/105 before blood pressure medications, heart rate 111, respiratory rate 20, pulse ox 98%. GENERAL: Awake, alert, comfortable, on nasal BiPAP. HEENT: Pinkish conjunctivae. Anicteric sclerae. No neck mass. No carotid bruits. No JVD. CHEST: No deformities. LUNGS: Clear breath sounds. No wheezing. No crackles. HEART: Normal sinus rhythm. No murmur. No gallops. No rubs. ABDOMEN: Globular, soft, nontender. EXTREMITIES: No edema. No deformities. MEDICATIONS: Medications of February 02, 2019, reviewed. LABORATORY DATA: On February 02, 2019; white count 26.7, hemoglobin 12.1. Sodium 138, potassium 3.2, chloride 103, carbon dioxide 25, BUN 57, creatinine 1.4, GFR 37 mL/minute, calcium 9.1. ASSESSMENT AND PLAN: 1. Acute kidney injury on top of her chronic renal failure, superimposed hemodynamically-mediated dysfunction, stable renal function. Due to the slightly higher creatinine 1.4 from 1.20 and anticipation of the planned arteriogram, we will hold off diuretics for the moment. Agree with gentle, plan, volume repletion prior to the said procedure. No indication for any dialytic intervention. 2. Shortness of breath, much improved. Currently, on nasal BiPAP. Diuretics on hold temporarily. 3. Overall agree with current management. Job ID: [id number]
--- NOTE | 2019-02-02 10:22 | PDOC.PALPN ---
Palliative Progress Note - Subjective Awake, alert, on high flow o2. Verbal, but confused. - Objective Vital Signs: Vital Signs - Most Recent Temp Pulse Resp BP Pulse Ox 98.2 F 111 H 28 H 96/71 98 02/02/19 07:00 02/02/19 08:55 02/02/19 07:36 01/31/19 14:11 02/02/19 07:36 - Physical Exam Constitutional: mild distress HEENT: EOMI, moist MMs, sclera anicteric Deviation from normal: labored respirations with speech Cardiovascular: irregular Gastrointestinal: non-tender, positive bowel sounds Musculoskeletal: no clubbing, no edema, pulses present Neurology: moves all 4 limbs Skin: cap refill <2 seconds, normal turgor Deviation from normal: Oriented but confused, possible hallucinations - Assessment (1) Palliative care encounter Code(s): Z51.5 - ENCOUNTER FOR PALLIATIVE CARE Current Visit: Yes Status: Acute (2) Physical deconditioning Code(s): R53.81 - OTHER MALAISE Current Visit: Yes Status: Acute (3) Acute kidney injury Code(s): N17.9 - ACUTE KIDNEY FAILURE, UNSPECIFIED Current Visit: Yes Status : Acute (4) Acute respiratory failure with hypoxia Code(s): J96.01 - ACUTE RESPIRATORY FAILURE WITH HYPOXIA Current Visit: Yes Status: Acute (5) Lower back pain Code(s): M54.5 - LOW BACK PAIN Current Visit: Yes Status: Acute (6) Acute exacerbation of CHF (congestive heart failure) Code(s): I50.9 - HEART FAILURE, UNSPECIFIED Current Visit: No Status: Acute - Plan Plan: Patient with cardiac change last night. Dr Hobbs and I spoke with patient at length. Patient states "she wants to go home", "I don't want to ", "I want to go on Hospice'. Obvious confusion. Also possible hallucinations as patient was seeing someone or something during the conversation. Discussed getting "stronger" / then address goal of care and discharge home either with or without hospice as currently patient is not a safe home discharge. Tearful when told she would not go home today. *Participate in PT and gain strength *Continue DNAR status *Therapeutic interventions such as pet therapy as patient is close with her dog "Ericka" [60] minutes spent on this encounter with >50% of the time in counseling and coordination of care.
--- NOTE | 2019-02-02 12:06 | PDOC.PALFU ---
Palliative Care Follow-up Note Patient son and daughter here to visit patient. Met with them to discuss goals of care. family states there is no one to stay with the patient 14/09 and ty has limited funds. Goal of care is to transition home safely. Discussed rehab as a potential, Ms Hahn understanding that she will need to participate with therapy at [facility] (Refused 02/01) Primary goal is to get strong enough to transition to rehab then home with either home health or hospice. Dr Hobbs notified
[2019-02-02] MEDS: Acetaminophen 650 MG/20.3 ML UDCUP PO PRN (21:02)
[2019-02-02] MEDS ORDERED: Lorazepam 2 MG/ML VIAL SLOW IVP PRN (23:26)
[2019-02-03 04:53] LABS: Hemoglobin 11.3 g/dL (12.0-16.0); Lymphocytes 10 % (21-51); MDiff Complete? YES; Mean Corpuscular Volume 80.6 fL (78.0-98.0); Mean Platelet Volume 11.4 fL (7.4-10.4); Metamyelocyte 2 % (0-0); Monocytes 10 % (0-10); Neutrophil 78 % (42-75); Platelet Count 218 thou/uL (130-400); Platelet Morphology Comment Appears Adequate; RBC Distribution Width 20.4 % (11.5-14.5); White Blood Cell (WBC) Count 23.5 thou/uL (4.8-10.8)
[2019-02-03 04:58] LABS: Anion Gap 11 mmol/L (10-20); BUN (Urea Nitrogen) 53 mg/dL (9.8-20.1); Calc. Creatinine Clearance 63 mL/min (70-130); Carbon Dioxide 28 mmol/L (23-31); Chloride 105 mmol/L (98-107); Estimated GFR-MDRD 37; Glucose 115 mg/dL (83-110); Potassium 3.1 mmol/L (3.5-5.1); Sodium 141 mmol/L (136-145)
--- NOTE | 2019-02-03 06:52 | PDOC.HOSPP ---
- Subjective Encounter Date: 02/02/19 Encounter Time: 08:45 Subjective: pt in bed, oriented to self but confused. - Objective Vital Signs & Weight: Vital Signs (12 hours) Temp Pulse Resp Pulse Ox 02/03/19 04:00 97.9 F 02/03/19 02:31 112 H 16 97 02/03/19 00:00 98.3 F 02/02/19 22:17 118 H 20 97 02/02/19 20:00 96 02/02/19 19:00 99.1 F 109 H 20 96 Weight Admit Weight 261 lb 0.32 oz Weight 253 lb 1.451 oz Most Recent Monitor Data Heart Rate from ECG 98 NIBP 116/62 NIBP BP-Mean 80 Respiration from ECG 16 SpO2 95 I&O: 02/01/19 02/02/19 02/03/19 06:59 06:59 06:59 Intake Total 2285.8 3385.9 1048.4 Output Total 4106 2625 1584 Balance -1820.2 760.9 -535.6 Result Diagrams: 02/04/19 04:05 02/04/19 04:05 Hospitalist ROS - Review of Systems Cardiovascular: denies: chest pain, palpitations, orthopnea, paroxysmal noc. dyspnea, edema, light headedness, other Gastrointestinal: denies: nausea, vomiting, abdominal pain, diarrhea, constipation, melena, hematochezia, other Genitourinary: denies: dysuria, frequency, incontinence, hematuria, retention, other - Medication Medications: Active Medications Generic Name Dose Route Start Last Admin Trade Name Freq PRN Reason Stop Dose Admin Acetaminophen 650 mg 01/28/19 20:14 02/02/19 21:02 Tylenol Elixir PO 650 mg Q4H PRN Administration Headache/Fever/Mild Pain (1-3) Al Hydroxide/Mg Hydroxide 30 ml 01/26/19 03:46 01/26/19 04:00 Maalox PO 30 ml Q6H PRN Administration Heartburn or Indigestion Albuterol/Ipratropium 3 ml 01/26/19 10:30 02/03/19 02:31 Duoneb NEB 3 ml [id number] JUSTINO Administration Aspirin 81 mg 01/28/19 09:00 02/02/19 08:59 Ecotrin PO 81 mg DAILY JUSTINO Administration Atorvastatin Calcium 10 mg 01/25/19 09:00 02/02/19 08:59 Lipitor PO 10 mg DAILY JUSTINO Administration Cefdinir 300 mg 02/02/19 09:00 02/02/19 20:57 Omnicef PO 02/07/19 09:01 300 mg BID JUSTINO Administration Diltiazem HCl 180 mg 02/02/19 09:00 02/02/19 08:58 Cardizem Cd PO 180 mg DAILY JUSTINO Administration Enoxaparin Sodium 80 mg 01/30/19 09:00 02/02/19 21:02 Lovenox SC 80 mg 0900,2100 JUSTINO Administration Famotidine 20 mg 01/25/19 09:00 02/02/19 08:57 Pepcid SLOW IVP 20 mg QAM JUSTINO Administration Levothyroxine Sodium 200 mcg 01/25/19 06:00 02/02/19 06:22 Synthroid PO 200 mcg 0600 JUSTINO Administration Levothyroxine Sodium 50 mcg 01/25/19 06:00 02/02/19 06:22 Synthroid PO 50 mcg 0600 JUSTINO Administration Lorazepam 0.5 mg 02/02/19 23:26 02/03/19 00:04 Ativan SLOW IVP 0.5 mg Q6H PRN Administration Anxiety/Agitation Metoclopramide HCl 10 mg 01/28/19 13:03 01/31/19 14:13 Reglan IVP 10 mg Q6H PRN Administration Nausea/Vomiting Potassium Chloride 20 meq 01/30/19 08:00 02/02/19 08:52 K-Dur PO 20 meq QAM-WM JUSTINO Administration Sertraline HCl 100 mg 02/01/19 09:00 02/02/19 08:59 Zoloft PO 100 mg DAILY JUSTINO Administration Sodium Chloride 10 ml 01/25/19 09:00 02/02/19 21:03 Flush - Normal Saline IVF 10 ml Q12HR JUSTINO Administration Sodium Chloride 10 ml 01/24/19 23:53 01/30/19 13:44 Flush - Normal Saline IVF 10 ml PRN PRN Administration Saline Flush - Exam Neck: negative: supple, symmetric, no JVD, no thyromegaly, no lymphadenopathy, no carotid bruit, JVD Heart: negative: RRR, no murmur, no gallops, no rubs, normal peripheral pulses, irregular, diminshed peripheral pulses, murmur present, II/IV, III/IV Respiratory: rhonchi Gastrointestinal: negative: soft, non-tender, non-distended, normal bowel sounds , no palpable masses, no hepatomegaly, no splenomegaly, no bruit, no guarding, no rigidity, tender to palpation, distended, diminished bowl sounds, voluntary guarding Hosp A/P (1) Acute respiratory failure with hypoxia Code(s): J96.01 - ACUTE RESPIRATORY FAILURE WITH HYPOXIA Status: Acute (2) Afib Code(s): I48.91 - UNSPECIFIED ATRIAL FIBRILLATION Status: Acute (3) HTN (hypertension) Code(s): I10 - ESSENTIAL (PRIMARY) HYPERTENSION Status: Chronic (4) Hyperlipidemia Code(s): E78.5 - HYPERLIPIDEMIA, UNSPECIFIED Status: Chronic (5) Hypothyroid Code(s): E03.9 - HYPOTHYROIDISM, UNSPECIFIED Status: Chronic (6) Lower back pain Code(s): M54.5 - LOW BACK PAIN Status: Acute (7) Delirium Code(s): R41.0 - DISORIENTATION, UNSPECIFIED Status: Acute - Plan will add MRI lumbar spine. Pt is not moving her right side, MRI brain ordered. will continue iv abx. pt on enoxaparin. 01/31 pt extubated doing well. mri brain is negative, mri lumbar high grade multilevel spondylosis. leukocytosis will follow. 02/01 pt doing well on high flow oxygen. her arterial doppler indicated possible stenosis but to do a cT runoff will need contrast. Her creatinine is improving. will talk with nephro if ok to do so. will talk to pt and pt's son. will discuss goals of care in am with palliative. pt appears very depressed. 02/02 pt up in bed no complains and wants to go home. pt is confused and has been hallucinating. I had a conversation with her about her going to hospice but she is not oriented to make this decision. Her son is her POA. i recommend her going to snf for strengthening and then home. her arterial ultrasound indicated possible narrowing will get ct runoff if ok with nephrology.
[2019-02-03] MEDS ORDERED: Potassium Chloride 20 MEQ TAB PO SCH (07:00)
[2019-02-03] MEDS: Levothyroxine Sodium 50 MCG TAB PO SCH (07:03)
[2019-02-03] MEDS: Levothyroxine Sodium 100 MCG TAB PO SCH (07:03)
--- NOTE | 2019-02-03 08:50 | PRG ---
DATE OF SERVICE: 02/03/2019 SUBJECTIVE: This morning, she is awake, alert, responsive, less encephalopathic. OBJECTIVE: VITAL SIGNS: Her sats are 98% on 4 L, cut back to 2 L, pulse 115, respiratory rate 21, and blood pressure 116/62. CHEST: Decreased breath sounds. No wheezing. CARDIAC: Normal S1 and S2. No gallops. ABDOMEN: No mass. LABORATORY DATA: Renal function much improved. White count of 23,000. IMPRESSION: 1. Respiratory failure. 2. Morbid obesity. 3. Chronic obstructive pulmonary disease. 4. Probably sleep apnea. 5. Supraventricular tachycardia. 6. Encephalopathy. 7. Renal failure. PLAN: PT supportive care. She can probably be transferred to a monitored bed. Continue Lovenox as per Cardiology. Job ID: [id number] MTDD
[2019-02-03] MEDS: Enoxaparin Sodium 80 MG/0.8 ML SYRINGE SC SCH ×2 (09:06→22:10)
[2019-02-03] MEDS: Aspirin 81 mg Enteric Coated Tablet PO SCH (09:06)
[2019-02-03] MEDS: predniSONE 5 MG TAB PO SCH (09:07)
[2019-02-03] MEDS: Famotidine/PF 20 mg/2ml Vial SLOW IVP SCH (09:07)
[2019-02-03] MEDS: Potassium Chloride 20 MEQ TAB PO SCH (09:09)
[2019-02-03] MEDS: Digoxin 0.5 MG/2 ML AMP SLOW IVP SCH (09:09)
--- NOTE | 2019-02-03 09:10 | PRG ---
DATE OF SERVICE: 02/03/2019 SUBJECTIVE: Ms. Hahn is mildly confused, but answers questions and is awake and alert. OBJECTIVE: VITAL SIGNS: Blood pressure is 116/60, pulse is anywhere between 110 to 140. LUNGS: Clear. CARDIAC: Tachycardic and irregular. ABDOMEN: Soft and nontender. EXTREMITIES: Mild edema. ASSESSMENT: Atrial fibrillation, difficult to control rate. At some point, she was taken off the IV amiodarone. Thought she was on it yesterday, but looking at the MAR, I do not think she probably was. We will put her back on the IV amiodarone. She is also on digoxin and oral Cardizem. Job ID: [id number]
--- NOTE | 2019-02-03 09:17 | PRG ---
DATE OF SERVICE: 02/03/2019 SUBJECTIVE: Ms. Hahn is a 78-year-old white female, who was seen by the renal service for acute kidney injury on top of her chronic renal failure. She had a superimposed hemodynamically-mediated renal dysfunction. This improved with volume repletion. Yesterday, we held off the furosemide temporarily. She is doing better. She denies any chest pain or shortness of breath. No acute events noted last night. The patient states that she is feeling much better this morning. PHYSICAL EXAMINATION: VITAL SIGNS: Blood pressure is 125/55, heart rate 129, and pulse ox 94%. GENERAL: Noted to be awake, alert, comfortable, not in distress. SKIN: Adequate turgor. HEENT: Pinkish conjunctivae. Anicteric sclerae. NECK: No neck mass. No carotid bruits. No JVD. CHEST: No deformities. LUNGS: Decreased breath sounds. HEART: The patient is tachycardic. No murmurs. No gallops or rubs. ABDOMEN: Globular, soft, and nontender. No masses. EXTREMITIES: No edema. No deformities. MEDICATIONS: Medications of 02/03/2019 were reviewed. LABORATORY DATA: On 02/03/2019: White count 23.5 and hemoglobin 11.3. Sodium 141, potassium 3.1, chloride 105, carbon dioxide 28, BUN 53, creatinine 1.37, glucose 115, and calcium. Magnesium 2.3. ASSESSMENT AND PLAN: 1. Mild hypokalemia. P.r.n. potassium replacement. Magnesium level is within normal. Please note diuretics currently on hold temporarily. 2. Acute kidney injury on top of her chronic renal failure, superimposed prerenal azotemia, much improved renal function. Creatinine 1.37, it is near baseline and is stable. Again, there is no indication for any dialytic intervention with this patient. Continue supportive care. 3. Status post acute respiratory failure, resolved. The patient is on empiric antibiotics. 4. Agree with current management. Recheck basic metabolic and CBC in a.m. Job ID: [id number]
[2019-02-03] MEDS: Atorvastatin Calcium 10 MG TAB PO SCH (09:18)
[2019-02-03] MEDS: Cefdinir 300 MG CAP PO SCH ×2 (09:18→22:09)
[2019-02-03] MEDS: Amiodarone 450 MG in Dextrose 5% in Water 250 ML IVPB SCH ×2 (09:57→22:32)
[2019-02-03] MEDS ORDERED: Sodium Chloride 0.9% 500 ML IV SCH (10:30)
[2019-02-03] MEDS ORDERED: Ipratropium Bromide 2.5 ml Neb NEB PRN (10:31)
[2019-02-03 13:10] VITALS: BMI 44.8
[2019-02-03] MEDS: Ipratropium Bromide 2.5 ml Neb NEB SCH ×2 (13:11→18:46)
[2019-02-04] MEDS: Ipratropium Bromide 2.5 ml Neb NEB SCH ×4 (00:27→19:11)
[2019-02-04 05:00] LABS: Band 5 % (5-11); Elliptocytes SLIGHT = 2-5 cells (100X) (0-1/hpf); Eosinophils 2 % (0-10); Hemoglobin 10.8 g/dL (12.0-16.0); Lymphocytes 7 % (21-51); MDiff Complete? YES; Mean Corpuscular HGB CONC 31.2 g/dL (32.0-36.0); Mean Corpuscular Hemoglobin 25.3 pg (27.0-31.0); Mean Corpuscular Volume 81.1 fL (78.0-98.0); Mean Platelet Volume 7.9 fL (7.4-10.4); Metamyelocyte 2 % (0-0); Monocytes 13 % (0-10); Myelocyte 1 % (0-0); Neutrophil 70 % (42-75); Nucleated RBC 3 % (0); Platelet Count 240 thou/uL (130-400); Platelet Morphology Comment Appears Adequate; RBC Distribution Width 20.1 % (11.5-14.5); Red Blood Cell (RBC) Count 4.26 mill/uL (4.20-5.40); White Blood Cell (WBC) Count 27.7 thou/uL (4.8-10.8)
[2019-02-04 05:07] LABS: Anion Gap 15 mmol/L (10-20); BUN (Urea Nitrogen) 42 mg/dL (9.8-20.1); Calc. Creatinine Clearance 75 mL/min (70-130); Calcium 8.9 mg/dL (7.8-10.44); Carbon Dioxide 22 mmol/L (23-31); Chloride 106 mmol/L (98-107); Estimated GFR-MDRD 46; Glucose 99 mg/dL (83-110); Potassium 3.4 mmol/L (3.5-5.1); Sodium 140 mmol/L (136-145)
[2019-02-04] MEDS: Levothyroxine Sodium 100 MCG TAB PO SCH (05:33)
[2019-02-04] MEDS: Levothyroxine Sodium 50 MCG TAB PO SCH (05:34)
--- NOTE | 2019-02-04 07:36 | PDOC.HOSPP ---
- Subjective Encounter Date: 02/03/19 Encounter Time: 10:30 Subjective: pt up in bed no complains - Objective Vital Signs & Weight: Vital Signs (12 hours) Temp Pulse Resp BP Pulse Ox 02/04/19 04:04 98.5 F 83 20 140/64 98 02/04/19 00:27 94 16 96 02/03/19 23:10 98.3 F 95 20 122/92 H 95 02/03/19 20:00 98.5 F 96 Weight Admit Weight 261 lb 0.32 oz Weight 247 lb 14.4 oz Most Recent Monitor Data Heart Rate from ECG 102 NIBP 122/86 NIBP BP-Mean 98 Respiration from ECG 22 SpO2 92 I&O: 02/03/19 02/04/19 02/05/19 06:59 06:59 06:59 Intake Total 1048.4 1408 Output Total 1584 1510 Balance -535.6 -102 Result Diagrams: 02/04/19 04:05 02/04/19 04:05 Hospitalist ROS - Review of Systems Cardiovascular: denies: chest pain, palpitations, orthopnea, paroxysmal noc. dyspnea, edema, light headedness, other Gastrointestinal: denies: nausea, vomiting, abdominal pain, diarrhea, constipation, melena, hematochezia, other Genitourinary: denies: dysuria, frequency, incontinence, hematuria, retention, other - Medication Medications: Active Medications Generic Name Dose Route Start Last Admin Trade Name Freq PRN Reason Stop Dose Admin Acetaminophen 650 mg 01/28/19 20:14 02/02/19 21:02 Tylenol Elixir PO 650 mg Q4H PRN Administration Headache/Fever/Mild Pain (1-3) Al Hydroxide/Mg Hydroxide 30 ml 01/26/19 03:46 01/26/19 04:00 Maalox PO 30 ml Q6H PRN Administration Heartburn or Indigestion Aspirin 81 mg 01/28/19 09:00 02/03/19 09:06 Ecotrin PO 81 mg DAILY JUSTINO Administration Atorvastatin Calcium 10 mg 01/25/19 09:00 02/03/19 09:18 Lipitor PO 10 mg DAILY JUSTINO Administration Cefdinir 300 mg 02/02/19 09:00 02/03/19 22:09 Omnicef PO 02/07/19 09:01 300 mg BID JUSTINO Administration Digoxin 0.125 mg 02/03/19 09:00 02/03/19 09:09 Lanoxin SLOW IVP 0.125 mg DAILY JUSTINO Administration Diltiazem HCl 180 mg 02/02/19 09:00 02/03/19 09:08 Cardizem Cd PO 180 mg DAILY JUSTINO Administration Enoxaparin Sodium 80 mg 01/30/19 09:00 02/03/19 22:10 Lovenox SC 80 mg 0900,2100 JUSTINO Administration Famotidine 20 mg 01/25/19 09:00 02/03/19 09:07 Pepcid SLOW IVP 20 mg QAM JUSTINO Administration Amiodarone HCl 450 mg/ 259 mls @ 0 mls/hr 02/03/19 09:00 02/03/19 22:32 Dextrose/Water IVPB 259 mls INF JUSTINO Administration Protocol Per Protocol Ipratropium [place] 2.5 ml 02/03/19 13:00 02/04/19 00:27 Atrovent NEB 2.5 ml [id number] JUSTINO Administration Levothyroxine Sodium 200 mcg 01/25/19 06:00 02/04/19 05:33 Synthroid PO 200 mcg 0600 JUSTINO Administration Levothyroxine Sodium 50 mcg 01/25/19 06:00 02/04/19 05:34 Synthroid PO 50 mcg 0600 JUSTINO Administration Metoclopramide HCl 10 mg 01/28/19 13:03 01/31/19 14:13 Reglan IVP 10 mg Q6H PRN Administration Nausea/Vomiting Potassium Chloride 20 meq 01/30/19 08:00 02/03/19 09:09 K-Dur PO 20 meq QAM-WM JUSTINO Administration Prednisone 10 mg 02/03/19 08:00 02/03/19 09:07 Prednisone PO 02/08/19 08:01 10 mg QAM-WM JUSTINO Administration Sertraline HCl 100 mg 02/01/19 09:00 02/03/19 09:08 Zoloft PO 100 mg DAILY JUSTINO Administration Sodium Chloride 10 ml 01/25/19 09:00 02/03/19 22:10 Flush - Normal Saline IVF 10 ml Q12HR JUSTINO Administration Sodium Chloride 10 ml 01/24/19 23:53 01/30/19 13:44 Flush - Normal Saline IVF 10 ml PRN PRN Administration Saline Flush - Exam Heart: negative: RRR, no murmur, no gallops, no rubs, normal peripheral pulses, irregular, diminshed peripheral pulses, murmur present, II/IV, III/IV Respiratory: negative: CTAB, no wheezes, no rales, no ronchi, normal chest expansion, no tachypnea, normal percussion, rales, rhonchi, tachypneic, wheezes Gastrointestinal: negative: soft, non-tender, non-distended, normal bowel sounds , no palpable masses, no hepatomegaly, no splenomegaly, no bruit, no guarding, no rigidity, tender to palpation, distended, diminished bowl sounds, voluntary guarding Hosp A/P (1) Acute respiratory failure with hypoxia Code(s): J96.01 - ACUTE RESPIRATORY FAILURE WITH HYPOXIA Status: Acute (2) Afib Code(s): I48.91 - UNSPECIFIED ATRIAL FIBRILLATION Status: Acute (3) HTN (hypertension) Code(s): I10 - ESSENTIAL (PRIMARY) HYPERTENSION Status: Chronic (4) Hyperlipidemia Code(s): E78.5 - HYPERLIPIDEMIA, UNSPECIFIED Status: Chronic (5) Hypothyroid Code(s): E03.9 - HYPOTHYROIDISM, UNSPECIFIED Status: Chronic (6) Lower back pain Code(s): M54.5 - LOW BACK PAIN Status: Acute (7) Delirium Code(s): R41.0 - DISORIENTATION, UNSPECIFIED Status: Acute - Plan will add MRI lumbar spine. Pt is not moving her right side, MRI brain ordered. will continue iv abx. pt on enoxaparin. 01/31 pt extubated doing well. mri brain is negative, mri lumbar high grade multilevel spondylosis. leukocytosis will follow. 02/01 pt doing well on high flow oxygen. her arterial doppler indicated possible stenosis but to do a cT runoff will need contrast. Her creatinine is improving. will talk with nephro if ok to do so. will talk to pt and pt's son. will discuss goals of care in am with palliative. pt appears very depressed. 02/02 pt up in bed no complains and wants to go home. pt is confused and has been hallucinating. I had a conversation with her about her going to hospice but she is not oriented to make this decision. Her son is her POA. i recommend her going to snf for strengthening and then home. her arterial ultrasound indicated possible narrowing will get ct runoff if ok with nephrology. 02/03 pt up in bed no complains. pt just recovering from her josie and her right toe appear is pink and she has a good pedal pulse. will hold off on CTA to prevent any injury. pt's is still tachycardia she is on amiodarone.
[2019-02-04] MEDS: Potassium Chloride 20 MEQ TAB PO SCH (08:11)
[2019-02-04] MEDS: predniSONE 5 MG TAB PO SCH (08:11)
[2019-02-04] MEDS: Atorvastatin Calcium 10 MG TAB PO SCH (08:11)
[2019-02-04] MEDS: Aspirin 81 mg Enteric Coated Tablet PO SCH (08:12)
[2019-02-04] MEDS: Cefdinir 300 MG CAP PO SCH ×2 (08:12→21:29)
[2019-02-04] MEDS: Enoxaparin Sodium 80 MG/0.8 ML SYRINGE SC SCH ×2 (08:12→21:30)
[2019-02-04] MEDS: Famotidine/PF 20 mg/2ml Vial SLOW IVP SCH (08:12)
[2019-02-04] MEDS: Digoxin 0.5 MG/2 ML AMP SLOW IVP SCH (08:21)
[2019-02-04] MEDS ORDERED: Amiodarone 150 MG, Admixture Fee 1 EACH in Dextrose 5% in Water 100 ML IVPB SCH (11:00)
[2019-02-04] MEDS: Amiodarone 450 MG in Dextrose 5% in Water 250 ML IVPB SCH ×2 (11:51→21:29)
--- NOTE | 2019-02-04 12:08 | PRG ---
DATE OF SERVICE: 02/04/2019 SUBJECTIVE: This morning, she is awake, alert, and responsive. She is doing well. OBJECTIVE: VITAL SIGNS: Temperature 98, pulse 82, sats 97% on 3 L, respiratory rate 20, blood pressure 151/64. CHEST: No wheezing or crackles. CARDIAC: Normal S1, S2. ABDOMEN: No masses. LABORATORY DATA: Renal function much improved. White count is still elevated at 27,000, is unclear the cause of her leukocytosis. IMPRESSION: 1. Morbid obesity, sleep apnea, chronic obstructive pulmonary disease. 2. Supraventricular tachycardia. 3. Renal failure. 4. Hypothyroidism. PLAN: 1. Continue PT, supportive care. 2. Discontinue central line. 3. Discontinue Ramirez. Job ID: [id number]
--- NOTE | 2019-02-04 13:22 | PDOC.HOSPP ---
- Subjective Encounter Date: 02/04/19 Encounter Time: 11:15 Subjective: pt up in bed confused. - Objective Vital Signs & Weight: Vital Signs (12 hours) Temp Pulse Resp BP Pulse Ox 02/04/19 11:30 98.6 F 82 20 151/64 H 97 02/04/19 08:21 74 02/04/19 08:12 98 02/04/19 08:09 99.0 F 74 19 123/59 L 98 02/04/19 07:43 96 18 97 02/04/19 04:04 98.5 F 83 20 140/64 98 Weight Admit Weight 261 lb 0.32 oz Weight 247 lb 14.4 oz Most Recent Monitor Data Heart Rate from ECG 102 NIBP 122/86 NIBP BP-Mean 98 Respiration from ECG 22 SpO2 92 I&O: 02/03/19 02/04/19 02/05/19 06:59 06:59 06:59 Intake Total 1048.4 1408 Output Total 1584 1510 325 Balance -535.6 -102 -325 Result Diagrams: 02/04/19 04:05 02/04/19 04:05 Hospitalist ROS - Review of Systems Respiratory: denies: cough, dry, shortness of breath, hemoptysis, SOB with excertion, pleuritic pain, sputum, wheezing, other Cardiovascular: denies: chest pain, palpitations, orthopnea, paroxysmal noc. dyspnea, edema, light headedness, other Gastrointestinal: denies: nausea, vomiting, abdominal pain, diarrhea, constipation, melena, hematochezia, other - Medication Medications: Active Medications Generic Name Dose Route Start Last Admin Trade Name Mauroq PRN Reason Stop Dose Admin Acetaminophen 650 mg 01/28/19 20:14 02/02/19 21:02 Tylenol Elixir PO 650 mg Q4H PRN Administration Headache/Fever/Mild Pain (1-3) Al Hydroxide/Mg Hydroxide 30 ml 01/26/19 03:46 01/26/19 04:00 Maalox PO 30 ml Q6H PRN Administration Heartburn or Indigestion Aspirin 81 mg 01/28/19 09:00 02/04/19 08:12 Ecotrin PO 81 mg DAILY JUSTINO Administration Atorvastatin Calcium 10 mg 01/25/19 09:00 02/04/19 08:11 Lipitor PO 10 mg DAILY JUSTINO Administration Cefdinir 300 mg 02/02/19 09:00 02/04/19 08:12 Omnicef PO 02/07/19 09:01 300 mg BID JUSTINO Administration Digoxin 0.125 mg 02/03/19 09:00 02/04/19 08:21 Lanoxin SLOW IVP 0.125 mg DAILY JUSTINO Administration Diltiazem HCl 180 mg 02/02/19 09:00 02/04/19 08:11 Cardizem Cd PO 180 mg DAILY JUSTINO Administration Enoxaparin Sodium 80 mg 01/30/19 09:00 02/04/19 08:12 Lovenox SC 80 mg 0900,2100 JUSTINO Administration Famotidine 20 mg 01/25/19 09:00 02/04/19 08:12 Pepcid SLOW IVP 20 mg QAM JUSTINO Administration Amiodarone HCl 450 mg/ 259 mls @ 0 mls/hr 02/03/19 09:00 02/04/19 11:51 Dextrose/Water IVPB 259 mls INF JUSTINO Administration Protocol Per Protocol Ipratropium [place] 2.5 ml 02/03/19 13:00 02/04/19 07:43 Atrovent NEB 2.5 ml [id number] JUSTINO Administration Levothyroxine Sodium 200 mcg 01/25/19 06:00 02/04/19 05:33 Synthroid PO 200 mcg 0600 JUSTINO Administration Levothyroxine Sodium 50 mcg 01/25/19 06:00 02/04/19 05:34 Synthroid PO 50 mcg 0600 JUSTINO Administration Metoclopramide HCl 10 mg 01/28/19 13:03 01/31/19 14:13 Reglan IVP 10 mg Q6H PRN Administration Nausea/Vomiting Potassium Chloride 20 meq 01/30/19 08:00 02/04/19 08:11 K-Dur PO 20 meq QAM-WM JUSTINO Administration Prednisone 10 mg 02/03/19 08:00 02/04/19 08:11 Prednisone PO 02/08/19 08:01 10 mg QAM-WM JUSTINO Administration Sertraline HCl 100 mg 02/01/19 09:00 02/04/19 08:11 Zoloft PO 100 mg DAILY JUSTINO Administration Sodium Chloride 10 ml 01/25/19 09:00 02/04/19 08:13 Flush - Normal Saline IVF 10 ml Q12HR JUSTINO Administration Sodium Chloride 10 ml 01/24/19 23:53 01/30/19 13:44 Flush - Normal Saline IVF 10 ml PRN PRN Administration Saline Flush - Exam Neck: negative: supple, symmetric, no JVD, no thyromegaly, no lymphadenopathy, no carotid bruit, JVD Heart: negative: RRR, no murmur, no gallops, no rubs, normal peripheral pulses, irregular, diminshed peripheral pulses, murmur present, II/IV, III/IV Respiratory: negative: CTAB, no wheezes, no rales, no ronchi, normal chest expansion, no tachypnea, normal percussion, rales, rhonchi, tachypneic, wheezes Hosp A/P (1) Acute respiratory failure with hypoxia Code(s): J96.01 - ACUTE RESPIRATORY FAILURE WITH HYPOXIA Status: Acute (2) Afib Code(s): I48.91 - UNSPECIFIED ATRIAL FIBRILLATION Status: Acute (3) HTN (hypertension) Code(s): I10 - ESSENTIAL (PRIMARY) HYPERTENSION Status: Chronic (4) Hyperlipidemia Code(s): E78.5 - HYPERLIPIDEMIA, UNSPECIFIED Status: Chronic (5) Hypothyroid Code(s): E03.9 - HYPOTHYROIDISM, UNSPECIFIED Status: Chronic (6) Lower back pain Code(s): M54.5 - LOW BACK PAIN Status: Acute (7) Delirium Code(s): R41.0 - DISORIENTATION, UNSPECIFIED Status: Acute (8) Leukocytosis Code(s): D72.829 - ELEVATED WHITE BLOOD CELL COUNT, UNSPECIFIED Status: Acute - Plan will add MRI lumbar spine. Pt is not moving her right side, MRI brain ordered. will continue iv abx. pt on enoxaparin. 01/31 pt extubated doing well. mri brain is negative, mri lumbar high grade multilevel spondylosis. leukocytosis will follow. 02/01 pt doing well on high flow oxygen. her arterial doppler indicated possible stenosis but to do a cT runoff will need contrast. Her creatinine is improving. will talk with nephro if ok to do so. will talk to pt and pt's son. will discuss goals of care in am with palliative. pt appears very depressed. 02/02 pt up in bed no complains and wants to go home. pt is confused and has been hallucinating. I had a conversation with her about her going to hospice but she is not oriented to make this decision. Her son is her POA. i recommend her going to snf for strengthening and then home. her arterial ultrasound indicated possible narrowing will get ct runoff if ok with nephrology. 02/04 pt a bit confused today but it waxes at times. she still has leukocytosis. will check ua and get a cxr. she is on steroids. she has no fever. Her creatinine is improving. will get her up and ambulate.
--- NOTE | 2019-02-04 14:25 | RAD ---
Exam: Chest one view: HISTORY: Leukocytosis COMPARISON: 02/01/2019 FINDINGS: Minimal rotation to the right. Cardiomegaly with some bilateral vascular congestion and minimal incre ased markings bilaterally and some blunting of the costophrenic angles. Appearance is stable from the prior study. IMPRESSION: Stable cardiomegaly and mild vascular congestion and increased markings. No new confluent pneumonia o r other acute process. Left central line in place.
[2019-02-04] MEDS: Metoclopramide HCl 10 MG/2 ML VIAL IVP PRN (17:40)
[2019-02-04 20:10] LABS: Bilirubin Negative (Negative); Blood, Urine Trace (Negative); Clarity Clear (Clear); Glucose, Urine (Dipstick) Normal (Negative); Leukocyte Negative Leu/uL (Negative); Nitrite Negative (Negative); Protein, Urine (Dipstick) 30 mg/dL (Neg-Trace); RBC/HPF 0-3 HPF (0-3); Squamous Epithelial 0-3 HPF (0-3); Urobilinogen Normal mg/dL (Less than 2); WBC/HPF 0-3 HPF (0-3)
[2019-02-04 20:37] LABS: Bacteria/HPF None Seen HPF (None Seen)
[2019-02-04 20:40] LABS: Urine Culture Reflex No No
[2019-02-05] MEDS: Ipratropium Bromide 2.5 ml Neb NEB SCH ×4 (00:51→19:17)
[2019-02-05] MEDS: Metoclopramide HCl 10 MG/2 ML VIAL IVP PRN ×2 (02:23→11:12)
[2019-02-05] MEDS: Levothyroxine Sodium 100 MCG TAB PO SCH (04:48)
[2019-02-05] MEDS: Levothyroxine Sodium 50 MCG TAB PO SCH (04:49)
[2019-02-05 05:32] LABS: Anion Gap 15 mmol/L (10-20); BUN (Urea Nitrogen) 29 mg/dL (9.8-20.1); Calc. Creatinine Clearance 96 mL/min (70-130); Carbon Dioxide 24 mmol/L (23-31); Chloride 105 mmol/L (98-107); Estimated GFR-MDRD 61; Glucose 108 mg/dL (83-110); Sodium 140 mmol/L (136-145)
[2019-02-05 05:45] LABS: Band 5 % (5-11); Elliptocytes MODERATE= 6-15 cells (100X) (0-1/hpf); Eosinophils 4 % (0-10); Hemoglobin 10.1 g/dL (12.0-16.0); Lymphocytes 9 % (21-51); MDiff Complete? YES; Mean Corpuscular HGB CONC 30.9 g/dL (32.0-36.0); Mean Corpuscular Hemoglobin 25.1 pg (27.0-31.0); Mean Corpuscular Volume 81.5 fL (78.0-98.0); Mean Platelet Volume 12.1 fL (7.4-10.4); Metamyelocyte 1 % (0-0); Monocytes 6 % (0-10); Neutrophil 75 % (42-75); Platelet Count 272 thou/uL (130-400); Platelet Morphology Comment Appears Adequate; RBC Distribution Width 20.5 % (11.5-14.5); Red Blood Cell (RBC) Count 4.02 mill/uL (4.20-5.40); White Blood Cell (WBC) Count 28.8 thou/uL (4.8-10.8)
[2019-02-05] MEDS: predniSONE 5 MG TAB PO SCH (08:52)
[2019-02-05] MEDS: Potassium Chloride 20 MEQ TAB PO SCH (08:52)
[2019-02-05] MEDS: Cefdinir 300 MG CAP PO SCH (08:53)
[2019-02-05] MEDS: Famotidine/PF 20 mg/2ml Vial SLOW IVP SCH (08:53)
[2019-02-05] MEDS: Aspirin 81 mg Enteric Coated Tablet PO SCH (08:53)
[2019-02-05] MEDS: Atorvastatin Calcium 10 MG TAB PO SCH (08:53)
[2019-02-05] MEDS: Enoxaparin Sodium 80 MG/0.8 ML SYRINGE SC SCH ×2 (08:53→22:11)
[2019-02-05] MEDS: Digoxin 0.5 MG/2 ML AMP SLOW IVP SCH (08:59)
[2019-02-05] MEDS: Amiodarone 450 MG in Dextrose 5% in Water 250 ML IVPB SCH (10:01)
[2019-02-05] MEDS ORDERED: Furosemide 20 MG/2 ML VIAL SLOW IVP SCH (10:30)
[2019-02-05] MEDS: Acetaminophen 650 MG/20.3 ML UDCUP PO PRN (11:12)
[2019-02-05] MEDS: HYDROcodone/Acetaminophen 7.5/325 mg Tablet PO PRN (12:55)
--- NOTE | 2019-02-05 12:55 | PRG ---
DATE OF SERVICE: 02/05/2019 SUBJECTIVE: This morning, she appears to be depressed. OBJECTIVE: VITAL SIGNS: Temperature 97, pulse 76, respiratory rate 20, sats are 97 on 2 L, blood pressure 129/65. GENERAL: There are multiple family members at the bedside. She is refusing to eat. CHEST: Decreased breath sounds. No wheezing. Cardiac: Normal S1 and S2. No gallops. ABDOMEN: No mass. LABORATORY DATA: X-ray yesterday showed no acute infiltrates. White count is still 28,000. IMPRESSION: 1. Respiratory failure. 2. Chronic obstructive pulmonary disease. 3. Sleep apnea. 4. Baseline depression. 5. Supraventricular tachycardia. Hoping IV amiodarone can be switched over to oral medication. Discontinue the IJ in the next day or two. Continue PT. I have added Ensure to her present p.o. intake. Job ID: [id number]
--- NOTE | 2019-02-05 13:08 | PDOC.HOSPP ---
- Subjective Encounter Date: 02/05/19 Encounter Time: 11:45 - Objective Vital Signs & Weight: Vital Signs (12 hours) Temp Pulse Resp BP Pulse Ox 02/05/19 11:16 97.3 F L 86 20 139/65 96 02/05/19 08:59 77 02/05/19 08:51 98.4 F 77 20 157/71 H 98 02/05/19 07:48 98 02/05/19 07:47 78 16 98 02/05/19 04:00 83 20 159/78 H Weight Admit Weight 261 lb 0.32 oz Weight 251 lb 12.8 oz Most Recent Monitor Data Heart Rate from ECG 102 NIBP 122/86 NIBP BP-Mean 98 Respiration from ECG 22 SpO2 92 I&O: 02/04/19 02/05/19 02/06/19 06:59 06:59 06:59 Intake Total 1408 440 240 Output Total 1510 1825 Balance -102 -138 240 Result Diagrams: 02/05/19 04:15 02/05/19 04:16 Hospitalist ROS - Medication Medications: Active Medications Generic Name Dose Route Start Last Admin Trade Name Freq PRN Reason Stop Dose Admin Acetaminophen 650 mg 01/28/19 20:14 02/05/19 11:12 Tylenol Elixir PO 650 mg Q4H PRN Administration Headache/Fever/Mild Pain (1-3) Al Hydroxide/Mg Hydroxide 30 ml 01/26/19 03:46 01/26/19 04:00 Maalox PO 30 ml Q6H PRN Administration Heartburn or Indigestion Aspirin 81 mg 01/28/19 09:00 02/05/19 08:53 Ecotrin PO 81 mg DAILY JUSTINO Administration Atorvastatin Calcium 10 mg 01/25/19 09:00 02/05/19 08:53 Lipitor PO 10 mg DAILY JUSTINO Administration Digoxin 0.125 mg 02/03/19 09:00 02/05/19 08:59 Lanoxin SLOW IVP 0.125 mg DAILY JUSTINO Administration Diltiazem HCl 180 mg 02/02/19 09:00 02/05/19 08:53 Cardizem Cd PO 180 mg DAILY JUSTINO Administration Enoxaparin Sodium 80 mg 01/30/19 09:00 02/05/19 08:53 Lovenox SC 80 mg 0900,2100 JUSTINO Administration Famotidine 20 mg 01/25/19 09:00 02/05/19 08:53 Pepcid SLOW IVP 20 mg QAM JUSTINO Administration Amiodarone HCl 450 mg/ 259 mls @ 0 mls/hr 02/03/19 09:00 02/05/19 10:01 Dextrose/Water IVPB 259 mls INF JUSTINO Administration Protocol Per Protocol Ipratropium [place] 2.5 ml 02/03/19 13:00 02/05/19 07:47 Atrovent NEB 2.5 ml [id number] JUSTINO Administration Levothyroxine Sodium 200 mcg 01/25/19 06:00 02/05/19 04:48 Synthroid PO 200 mcg 0600 JUSTINO Administration Levothyroxine Sodium 50 mcg 01/25/19 06:00 02/05/19 04:49 Synthroid PO 50 mcg 0600 JUSTINO Administration Potassium Chloride 20 meq 01/30/19 08:00 02/05/19 08:52 K-Dur PO 20 meq QAM-WM JUSTINO Administration Sertraline HCl 100 mg 02/01/19 09:00 02/05/19 08:53 Zoloft PO 100 mg DAILY JUSTINO Administration Sodium Chloride 10 ml 01/25/19 09:00 02/05/19 08:53 Flush - Normal Saline IVF 10 ml Q12HR JUSTINO Administration Sodium Chloride 10 ml 01/24/19 23:53 02/05/19 08:54 Flush - Normal Saline IVF 10 ml PRN PRN Administration Saline Flush Hosp A/P (1) Acute respiratory failure with hypoxia Code(s): J96.01 - ACUTE RESPIRATORY FAILURE WITH HYPOXIA Status: Acute (2) Afib Code(s): I48.91 - UNSPECIFIED ATRIAL FIBRILLATION Status: Acute (3) HTN (hypertension) Code(s): I10 - ESSENTIAL (PRIMARY) HYPERTENSION Status: Chronic (4) Hyperlipidemia Code(s): E78.5 - HYPERLIPIDEMIA, UNSPECIFIED Status: Chronic (5) Hypothyroid Code(s): E03.9 - HYPOTHYROIDISM, UNSPECIFIED Status: Chronic (6) Lower back pain Code(s): M54.5 - LOW BACK PAIN Status: Acute (7) Delirium Code(s): R41.0 - DISORIENTATION, UNSPECIFIED Status: Acute (8) Leukocytosis Code(s): D72.829 - ELEVATED WHITE BLOOD CELL COUNT, UNSPECIFIED Status: Acute - Plan will add MRI lumbar spine. Pt is not moving her right side, MRI brain ordered. will continue iv abx. pt on enoxaparin. 01/31 pt extubated doing well. mri brain is negative, mri lumbar high grade multilevel spondylosis. leukocytosis will follow. 02/01 pt doing well on high flow oxygen. her arterial doppler indicated possible stenosis but to do a cT runoff will need contrast. Her creatinine is improving. will talk with nephro if ok to do so. will talk to pt and pt's son. will discuss goals of care in am with palliative. pt appears very depressed. 02/02 pt up in bed no complains and wants to go home. pt is confused and has been hallucinating. I had a conversation with her about her going to hospice but she is not oriented to make this decision. Her son is her POA. i recommend her going to snf for strengthening and then home. her arterial ultrasound indicated possible narrowing will get ct runoff if ok with nephrology. 02/04 pt a bit confused today but it waxes at times. she still has leukocytosis. will check ua and get a cxr. she is on steroids. she has no fever. Her creatinine is improving. will get her up and ambulate. 02/05 pt's family at bed side updated. her right toe today appears a bit discolored, will ask nurse to check pulse. she is having diarrhea with elevated wbc cdiff sent. will get a abd xray she is nauseated. steroids low dose. ua and cxr normal.
[2019-02-05] MEDS ORDERED: Vancomycin HCl 25 MG/ML Oral PO SCH ×2 (13:15→18:00)
--- NOTE | 2019-02-05 16:02 | RAD ---
Abdomen one view: HISTORY: Nausea Large body habitus lowers the sensitivity of this study. There are some minimally abnormally dilated small bowel loops particularly in the right mid abdomen. There is also gas within the right colon and transverse colon and into the rectum. No overt calculus. IMPRESSION: Some borderline size loops of small bowel containing gas as well as gas in the colon including the re ctum, nonspecific. No overt obstruction. No overt calculus.
[2019-02-05 17:34] LABS: Bilirubin Negative (Negative); Blood, Urine Trace (Negative); Clarity Clear (Clear); Glucose, Urine (Dipstick) Normal (Negative); Leukocyte 250 Leu/uL (Negative); Nitrite Negative (Negative); Protein, Urine (Dipstick) 10 mg/dL (Neg-Trace); RBC/HPF 0-3 HPF (0-3); Squamous Epithelial 0-3 HPF (0-3); Urobilinogen Normal mg/dL (Less than 2)
[2019-02-05 17:41] LABS: Bacteria/HPF None Seen HPF (None Seen); Yeast-Budding 1+ HPF (None Seen)
[2019-02-05 17:42] LABS: Urine Culture Reflex Yes Yes
[2019-02-06] MEDS: Ipratropium Bromide 2.5 ml Neb NEB SCH ×4 (00:35→20:22)
[2019-02-06] MEDS: Amiodarone 450 MG in Dextrose 5% in Water 250 ML IVPB SCH (01:13)
[2019-02-06 04:58] LABS: Anion Gap 12 mmol/L (10-20); BUN (Urea Nitrogen) 22 mg/dL (9.8-20.1); Calc. Creatinine Clearance 99 mL/min (70-130); Calcium 8.8 mg/dL (7.8-10.44); Carbon Dioxide 25 mmol/L (23-31); Chloride 105 mmol/L (98-107); Estimated GFR-MDRD 63; Glucose 110 mg/dL (83-110); Potassium 3.6 mmol/L (3.5-5.1); Sodium 138 mmol/L (136-145)
[2019-02-06 05:30] LABS: Eosinophils 1 % (0-10); Hemoglobin 9.3 g/dL (12.0-16.0); Hypochromia SLIGHT = 6-15 cells (100X) (0-5/hpf); Lymphocytes 5 % (21-51); MDiff Complete? YES; Mean Corpuscular HGB CONC 31.2 g/dL (32.0-36.0); Mean Corpuscular Hemoglobin 25.5 pg (27.0-31.0); Mean Corpuscular Volume 81.9 fL (78.0-98.0); Monocytes 7 % (0-10); Neutrophil 87 % (42-75); Platelet Count 307 thou/uL (130-400); Platelet Morphology Comment Appears Adequate; Red Blood Cell (RBC) Count 3.66 mill/uL (4.20-5.40); White Blood Cell (WBC) Count 27.8 thou/uL (4.8-10.8)
[2019-02-06] MEDS: Levothyroxine Sodium 50 MCG TAB PO SCH (06:18)
[2019-02-06] MEDS: Levothyroxine Sodium 100 MCG TAB PO SCH (06:18)
--- NOTE | 2019-02-06 08:39 | PRG ---
DATE OF SERVICE: 02/06/2019 SUBJECTIVE: Ms. Hahn is complaining of abdominal fullness and nausea, upset stomach. No chest pain or pressure. She is much more alert and awake and lucid. OBJECTIVE: VITAL SIGNS: Blood pressure 138/70; pulse is in the 90s to 100s, it is irregular. LUNGS: Clear. CARDIAC: Irregularly irregular. ABDOMEN: Obese and nontender. EXTREMITIES: No edema. ASSESSMENT: 1. Persistent atrial fibrillation. 2. Nausea. 3. Renal failure has actually improved. PLAN: 1. Increase enoxaparin dose. 2. Continue digoxin and diltiazem and amiodarone for now. We will continue IV amiodarone for now in view of the an upset stomach. Job ID: [id number]
--- NOTE | 2019-02-06 09:34 | PRG ---
DATE OF SERVICE: 02/06/2019 SUBJECTIVE: This morning, she is awake, alert, and responsive. She is weak. She has refused to eat. She is saying she is nauseated. OBJECTIVE: VITAL SIGNS: Temperature 97, pulse 82, respirations 16, and saturations are 90% on 2 L. CHEST: Occasional wheeze. CARDIAC: Normal S1 and S2. No gallop. ABDOMEN: Soft. LABORATORY DATA: Stool negative for C. diff. White count 27,000. IMPRESSION: 1. Supraventricular tachycardia, still has an IJ in place. 2. Leukocytosis. 3. Respiratory failure and chronic obstructive pulmonary disease. 4. Morbid obesity and hypothyroidism. We can discontinue the IJ once she is switched over to p.o. amiodarone. Continue PT and supportive care, eventually placement. Job ID: [id number]
[2019-02-06] MEDS: Atorvastatin Calcium 10 MG TAB PO SCH (09:59)
[2019-02-06] MEDS: Aspirin 81 mg Enteric Coated Tablet PO SCH (09:59)
[2019-02-06] MEDS: Famotidine/PF 20 mg/2ml Vial SLOW IVP SCH (09:59)
[2019-02-06] MEDS: Potassium Chloride 20 MEQ TAB PO SCH (09:59)
[2019-02-06] MEDS: Digoxin 0.5 MG/2 ML AMP SLOW IVP SCH (10:00)
[2019-02-06] MEDS: Enoxaparin Sodium 80 MG/0.8 ML SYRINGE SC SCH ×2 (10:18→20:17)
[2019-02-06] MEDS: HYDROcodone/Acetaminophen 7.5/325 mg Tablet PO PRN ×2 (10:22→17:58)
--- NOTE | 2019-02-06 12:19 | PDOC.HOSPP ---
- Subjective Encounter Date: 02/06/19 Encounter Time: 12:15 Subjective: alert,oriented,feeling better - Objective Vital Signs & Weight: Vital Signs (12 hours) Temp Pulse Resp BP Pulse Ox 02/06/19 11:31 98.6 F 79 20 183/87 H 98 02/06/19 10:00 85 02/06/19 07:55 98.5 F 85 18 164/76 H 97 02/06/19 07:39 95 02/06/19 07:38 82 16 95 02/06/19 04:18 97.4 F L 78 14 138/70 95 02/06/19 00:35 90 16 99 Weight Admit Weight 261 lb 0.32 oz Weight 248 lb 3 oz Most Recent Monitor Data Heart Rate from ECG 102 NIBP 122/86 NIBP BP-Mean 98 Respiration from ECG 22 SpO2 92 I&O: 02/05/19 02/06/19 02/07/19 06:59 06:59 06:59 Intake Total 440 940 Output Total 2932 3289 Balance -1385 -515 Result Diagrams: 02/06/19 04:05 02/06/19 04:05 Hospitalist ROS - Medication Medications: Active Medications Generic Name Dose Route Start Last Admin Trade Name Freq PRN Reason Stop Dose Admin Acetaminophen 650 mg 01/28/19 20:14 02/05/19 11:12 Tylenol Elixir PO 650 mg Q4H PRN Administration Headache/Fever/Mild Pain (1-3) Hydrocodone Bitart/Acetaminophen 1 tab 02/05/19 11:44 02/06/19 10:22 [place] 7.5/325 PO 1 tab Q4H PRN Administration Mild Pain (1-3) Al Hydroxide/Mg Hydroxide 30 ml 01/26/19 03:46 01/26/19 04:00 Maalox PO 30 ml Q6H PRN Administration Heartburn or Indigestion Aspirin 81 mg 01/28/19 09:00 02/06/19 09:59 Ecotrin PO 81 mg DAILY JUSTINO Administration Atorvastatin Calcium 10 mg 01/25/19 09:00 02/06/19 09:59 Lipitor PO 10 mg DAILY JUSTINO Administration Digoxin 0.125 mg 02/03/19 09:00 02/06/19 10:00 Lanoxin SLOW IVP 0.125 mg DAILY JUSTINO Administration Diltiazem HCl 180 mg 02/02/19 09:00 02/06/19 09:59 Cardizem Cd PO 180 mg DAILY JUSTINO Administration Enoxaparin Sodium 100 mg 02/06/19 09:00 02/06/19 10:18 Lovenox SC 100 mg 0900,2100 JUSTINO Administration Famotidine 20 mg 01/25/19 09:00 02/06/19 09:59 Pepcid SLOW IVP 20 mg QAM JUSTINO Administration Amiodarone HCl 450 mg/ 259 mls @ 0 mls/hr 02/03/19 09:00 02/06/19 01:13 Dextrose/Water IVPB 259 mls INF JUSTINO Administration Protocol Per Protocol Ipratropium [place] 2.5 ml 02/03/19 13:00 02/06/19 07:38 Atrovent NEB 2.5 ml [id number] JUSTINO Administration Levothyroxine Sodium 200 mcg 01/25/19 06:00 02/06/19 06:18 Synthroid PO 200 mcg 0600 JUSTINO Administration Levothyroxine Sodium 50 mcg 01/25/19 06:00 02/06/19 06:18 Synthroid PO 50 mcg 0600 JUSTINO Administration Potassium Chloride 20 meq 01/30/19 08:00 02/06/19 09:59 K-Dur PO 20 meq QAM-WM JUSTINO Administration Sertraline HCl 100 mg 02/01/19 09:00 02/06/19 09:59 Zoloft PO 100 mg DAILY JUSTINO Administration Sodium Chloride 10 ml 01/25/19 09:00 02/06/19 10:18 Flush - Normal Saline IVF 10 ml Q12HR JUSTINO Administration Sodium Chloride 10 ml 01/24/19 23:53 02/05/19 08:54 Flush - Normal Saline IVF 10 ml PRN PRN Administration Saline Flush - Exam General Appearance: awake alert Neck: no JVD Heart: RRR, no murmur Respiratory: CTAB Gastrointestinal: soft, normal bowel sounds Extremities: 1+ LE edema Hosp A/P (1) Acute respiratory failure with hypoxia Code(s): J96.01 - ACUTE RESPIRATORY FAILURE WITH HYPOXIA Status: Acute (2) Afib Code(s): I48.91 - UNSPECIFIED ATRIAL FIBRILLATION Status: Acute Qualifiers: Atrial fibrillation type: longstanding persistent Qualified Code(s): I48.11 - Longstanding persistent atrial fibrillation (3) Lower back pain Code(s): M54.5 - LOW BACK PAIN Status: Acute (4) Acute exacerbation of chronic obstructive pulmonary disease (COPD) Code(s): J44.1 - CHRONIC OBSTRUCTIVE PULMONARY DISEASE W (ACUTE) EXACERBATION Status: Chronic (5) CAD (coronary artery disease) Code(s): I25.10 - ATHSCL HEART DISEASE OF [place] CORONARY ARTERY W/O ANG PCTRS Status: Chronic Qualifiers: Coronary Disease-Associated Artery/Lesion type: [place] artery [place] vs. transplanted heart: [place] heart Associated angina: without angina Qualified Code(s): I25.10 - Atherosclerotic heart disease of [place] coronary artery without angina pectoris (6) HTN (hypertension) Code(s): I10 - ESSENTIAL (PRIMARY) HYPERTENSION Status: Chronic Qualifiers: Hypertension type: essential hypertension Qualified Code(s): I10 - Essential (primary) hypertension (7) Hyperlipidemia Code(s): E78.5 - HYPERLIPIDEMIA, UNSPECIFIED Status: Chronic Qualifiers: Hyperlipidemia type: unspecified Qualified Code(s): E78.5 - Hyperlipidemia , unspecified (8) Hypothyroid Code(s): E03.9 - HYPOTHYROIDISM, UNSPECIFIED Status: Chronic Qualifiers: Hypothyroidism type: unspecified Qualified Code(s): E03.9 - Hypothyroidism , unspecified (9) Delirium Code(s): R41.0 - DISORIENTATION, UNSPECIFIED Status: Resolved - Plan cont digoxin,cardizem,amiodarone still on supplmentalO2 cont po antibx placement/Rehab?
[2019-02-06 13:13] LABS: Hemoglobin 9.3 g/dL (12.0-16.0); Mean Corpuscular HGB CONC 30.4 g/dL (32.0-36.0); Mean Corpuscular Volume 82.4 fL (78.0-98.0); Mean Platelet Volume 11.1 fL (7.4-10.4); Platelet Count 306 thou/uL (130-400); RBC Distribution Width 20.9 % (11.5-14.5); White Blood Cell (WBC) Count 30.4 thou/uL (4.8-10.8)
[2019-02-06 13:44] LABS: Anisocytosis MODERATE=16-30 cells (100X) (0-5/hpf); Band 6 % (5-11); Elliptocytes SLIGHT = 2-5 cells (100X) (0-1/hpf); Hypochromia SLIGHT = 6-15 cells (100X) (0-5/hpf); Large Platelets SLIGHT; Lymphocytes 8 % (21-51); MDiff Complete? YES; Metamyelocyte 4 % (0-0); Monocytes 2 % (0-10); Myelocyte 3 % (0-0); Neutrophil 77 % (42-75); Ovalocytes SLIGHT = 2-5 cells (100X) (0-1/hpf); Platelet Morphology Comment Appears Adequate; Poikilocytosis SLIGHT = 6-15 cells (100X) (0-5/hpf); Polychromasia MODERATE = 3-4 cells (100X) (0-2/hpf); Schistocytes SLIGHT = 2-5 cells (100X) (0-1/hpf); Tear Drops SLIGHT = 2-5 cells (100X) (0-1/hpf)
[2019-02-07] MEDS: HYDROcodone/Acetaminophen 7.5/325 mg Tablet PO PRN ×2 (00:05→04:32)
[2019-02-07] MEDS: Ipratropium Bromide 2.5 ml Neb NEB SCH ×2 (00:10→07:12)
[2019-02-07 03:19] VITALS: BP 128/82; TEMP 97.9
[2019-02-07] MEDS ORDERED: Furosemide 40 MG/4 ML VIAL SLOW IVP SCH ×2 (05:15→05:45)
[2019-02-07] MEDS ORDERED: Norepinephrine 8 MG/0.9% NS 250 ML IVPB SCH (05:47)
[2019-02-07] MEDS ORDERED: Norepinephrine 8 MG/0.9% NS 250 ML ONE (05:47)
[2019-02-07 05:49] LABS: Troponin I 0.095 ng/mL (< 0.028)
--- NOTE | 2019-02-07 05:59 | PDOC.BPN ---
- Brief Progress Note called to see pt with resp distress. admitted for falls, weakness, presumed sepsis with possible diastolic CHF , hx of atrial with RVR on amiodaron gtt , s/ p given norco last pm but noted with worsneing sob now . pt sent to CCU on bipap , unable to measure BP as well as obtain ABG due to poor pulsation and cmallmy extremities . state CXR shows mild b/l hilar congestion. will start levophed gtt , c/w amiodarone -will obtain ABG after BP improved -obtain troponin q4x2 , cbc , bmp
[2019-02-07 06:16] LABS: Actual Bicarbonate (HCO3a) 10.6 mEq/L (22-28); Base Excess (BEa) -17.3 mEq/L (-2.0 to +3.0); CO2 Tension 33.3 mmHg (35.0-45.0); Calcium, Ionized 1.13 mmol/L (1.12-1.30); Carboxyhemoglobin (COHb) 1.8 gm% (0.0-3.0); Hemoglobin (Hb) 7.4 g/dL (12.0-16.0); O2 Tension (PaO2) 135.5 mmHg (> 70.0); Potassium - ABG Lab 5.87 mmol/L (3.70-5.30)
[2019-02-07] MEDS: Sodium Bicarb 50 MEQ/50 ML VIAL ONE ×2 (06:24→06:25)
[2019-02-07] MEDS: Levothyroxine Sodium 100 MCG TAB PO SCH (06:25)
[2019-02-07] MEDS: Levothyroxine Sodium 50 MCG TAB PO SCH (06:26)
[2019-02-07] MEDS ORDERED: Sodium Bicarb 50 MEQ/50 ML VIAL IVP SCH (06:30)
[2019-02-07] MEDS ORDERED: Sodium Chloride 0.9% 1,000 ML IV SCH (06:30)
[2019-02-07 06:31] LABS: Hemoglobin 6.9 g/dL (12.0-16.0); Mean Corpuscular HGB CONC 29.2 g/dL (32.0-36.0); Mean Corpuscular Volume 85.7 fL (78.0-98.0); Mean Platelet Volume 10.5 fL (7.4-10.4); Platelet Count 343 thou/uL (130-400); RBC Distribution Width 25.4 % (11.5-14.5); Red Blood Cell (RBC) Count 2.77 mill/uL (4.20-5.40); White Blood Cell (WBC) Count 50.7 thou/uL (4.8-10.8)
[2019-02-07 06:39] LABS: ALV-art Gradient 179.375 (0-20); Puncture Site RBA; pH, Arterial 7.12 (7.35-7.45)
[2019-02-07 06:44] LABS: Band 5 % (5-11); Hypochromia SLIGHT = 6-15 cells (100X) (0-5/hpf); Lymphocytes 12 % (21-51); MDiff Complete? YES; Macrocytosis SLIGHT = 6-15 cells (100X) (0-5/hpf); Metamyelocyte 4 % (0-0); Monocytes 5 % (0-10); Myelocyte 4 % (0-0); Neutrophil 70 % (42-75); Nucleated RBC 1 % (0); Ovalocytes SLIGHT = 2-5 cells (100X) (0-1/hpf); Platelet Morphology Comment Appears Adequate
[2019-02-07 06:50] LABS: Anion Gap 25 mmol/L (10-20); BUN (Urea Nitrogen) 23 mg/dL (9.8-20.1); Calc. Creatinine Clearance 59 mL/min (70-130); Calcium 8.1 mg/dL (7.8-10.44); Carbon Dioxide 11 mmol/L (23-31); Chloride 106 mmol/L (98-107); Estimated GFR-MDRD 35; Glucose 139 mg/dL (83-110); Potassium 5.9 mmol/L (3.5-5.1); Sodium 136 mmol/L (136-145)
[2019-02-07 06:53] LABS: Troponin I 0.107 ng/mL (< 0.028)
[2019-02-07] MEDS: Potassium Chloride 20 MEQ TAB PO SCH (08:20)
--- NOTE | 2019-02-07 08:20 | PDOC.HOSPP ---
- Subjective Encounter Date: 02/07/19 Encounter Time: 08:18 Subjective: on BIPAP, unresponsive - Objective Vital Signs & Weight: Vital Signs (12 hours) Temp Pulse Resp BP Pulse Ox 02/07/19 07:26 92 L 02/07/19 07:14 95 24 H 100 02/07/19 07:12 92 24 H 100 02/07/19 05:46 78 20 02/07/19 05:45 90 L 02/07/19 05:05 92 24 H 02/07/19 03:18 97.9 F 79 20 128/82 97 02/07/19 00:10 73 18 97 02/07/19 00:00 97.8 F 80 16 148/72 H 95 02/06/19 20:22 85 18 97 Weight Admit Weight 261 lb 0.32 oz Weight 249 lb 1.957 oz Most Recent Monitor Data Heart Rate from ECG 96 NIBP 87/69 NIBP BP-Mean 67 Respiration from ECG 23 SpO2 98 I&O: 02/06/19 02/07/19 02/08/19 06:59 06:59 06:59 Intake Total 940 1050 Output Total 1455 500 Balance -515 550 Result Diagrams: 02/07/19 06:14 02/07/19 06:14 Radiology Reviewed by me: Yes (CXR- cariomegaly, no significant change) Hospitalist ROS - Medication Medications: Active Medications Generic Name Dose Route Start Last Admin Trade Name Freq PRN Reason Stop Dose Admin Acetaminophen 650 mg 01/28/19 20:14 02/05/19 11:12 Tylenol Elixir PO 650 mg Q4H PRN Administration Headache/Fever/Mild Pain (1-3) Hydrocodone Bitart/Acetaminophen 1 tab 02/05/19 11:44 02/07/19 04:32 [place] 7.5/325 PO 1 tab Q4H PRN Administration Mild Pain (1-3) Al Hydroxide/Mg Hydroxide 30 ml 01/26/19 03:46 01/26/19 04:00 Maalox PO 30 ml Q6H PRN Administration Heartburn or Indigestion Aspirin 81 mg 01/28/19 09:00 02/06/19 09:59 Ecotrin PO 81 mg DAILY JUSTINO Administration Atorvastatin Calcium 10 mg 01/25/19 09:00 02/06/19 09:59 Lipitor PO 10 mg DAILY JUSTINO Administration Digoxin 0.125 mg 02/03/19 09:00 02/06/19 10:00 Lanoxin SLOW IVP 0.125 mg DAILY JUSTINO Administration Diltiazem HCl 180 mg 02/02/19 09:00 02/06/19 09:59 Cardizem Cd PO 180 mg DAILY JUSTINO Administration Famotidine 20 mg 01/25/19 09:00 02/06/19 09:59 Pepcid SLOW IVP 20 mg QAM JUSTINO Administration Amiodarone HCl 450 mg/ 259 mls @ 0 mls/hr 02/03/19 09:00 02/06/19 01:13 Dextrose/Water IVPB 259 mls INF JUSTINO Administration Protocol Per Protocol Ipratropium [place] 2.5 ml 02/03/19 10:31 02/07/19 05:05 Atrovent NEB 2.5 ml Q6H PRN Administration SOB &/or Wheezing Ipratropium [place] 2.5 ml 02/03/19 13:00 02/07/19 07:12 Atrovent NEB 2.5 ml [id number] JUSTINO Administration Levothyroxine Sodium 200 mcg 01/25/19 06:00 02/07/19 06:25 Synthroid PO Not Given 0600 JUSTINO Levothyroxine Sodium 50 mcg 01/25/19 06:00 02/07/19 06:26 Synthroid PO Not Given 0600 JUSTINO Potassium Chloride 20 meq 01/30/19 08:00 02/06/19 09:59 K-Dur PO 20 meq QAM-WM JUSTINO Administration Sertraline HCl 100 mg 02/01/19 09:00 02/06/19 09:59 Zoloft PO 100 mg DAILY JUSTINO Administration Sodium Chloride 10 ml 01/25/19 09:00 02/06/19 20:17 Flush - Normal Saline IVF 10 ml Q12HR JUSTINO Administration Sodium Chloride 10 ml 01/24/19 23:53 02/05/19 08:54 Flush - Normal Saline IVF 10 ml PRN PRN Administration Saline Flush - Exam Neck: no JVD Heart: RRR, no murmur Respiratory: CTAB Respiratory - other findings: except scattered rhochi Gastrointestinal: soft, non-distended, normal bowel sounds Extremities: 1+ LE edema Hosp A/P (1) Acidosis, metabolic Code(s): E87.2 - ACIDOSIS Status: Acute (2) Afib Code(s): I48.91 - UNSPECIFIED ATRIAL FIBRILLATION Status: Acute Qualifiers: Atrial fibrillation type: longstanding persistent Qualified Code(s): I48.11 - Longstanding persistent atrial fibrillation (3) Hypotension Status: Acute (4) Acute respiratory failure with hypoxia Code(s): J96.01 - ACUTE RESPIRATORY FAILURE WITH HYPOXIA Status: Acute (5) Lower back pain Code(s): M54.5 - LOW BACK PAIN Status: Acute (6) Acute exacerbation of chronic obstructive pulmonary disease (COPD) Code(s): J44.1 - CHRONIC OBSTRUCTIVE PULMONARY DISEASE W (ACUTE) EXACERBATION Status: Chronic (7) CAD (coronary artery disease) Code(s): I25.10 - ATHSCL HEART DISEASE OF [place] CORONARY ARTERY W/O ANG PCTRS Status: Chronic Qualifiers: Coronary Disease-Associated Artery/Lesion type: [place] artery [place] vs. transplanted heart: [place] heart Associated angina: without angina Qualified Code(s): I25.10 - Atherosclerotic heart disease of [place] coronary artery without angina pectoris (8) HTN (hypertension) Code(s): I10 - ESSENTIAL (PRIMARY) HYPERTENSION Status: Chronic Qualifiers: Hypertension type: essential hypertension Qualified Code(s): I10 - Essential (primary) hypertension (9) Hyperlipidemia Code(s): E78.5 - HYPERLIPIDEMIA, UNSPECIFIED Status: Chronic Qualifiers: Hyperlipidemia type: unspecified Qualified Code(s): E78.5 - Hyperlipidemia , unspecified (10) Hypothyroid Code(s): E03.9 - HYPOTHYROIDISM, UNSPECIFIED Status: Chronic Qualifiers: Hypothyroidism type: unspecified Qualified Code(s): E03.9 - Hypothyroidism , unspecified (11) Delirium Code(s): R41.0 - DISORIENTATION, UNSPECIFIED Status: Resolved (12) Leukemoid reaction Code(s): D72.823 - LEUKEMOID REACTION Status: Acute - Plan on continuos BIPAP on levophed BP support discuss wit technical delivery manager
[2019-02-07] MEDS: Atorvastatin Calcium 10 MG TAB PO SCH (08:21)
[2019-02-07] MEDS: Aspirin 81 mg Enteric Coated Tablet PO SCH (08:21)
[2019-02-07] MEDS: Digoxin 0.5 MG/2 ML AMP SLOW IVP SCH (08:25)
[2019-02-07] MEDS: Famotidine/PF 20 mg/2ml Vial SLOW IVP SCH (08:29)
--- NOTE | 2019-02-07 08:49 | PRG ---
DATE OF SERVICE: 02/07/2019 SUBJECTIVE: Ms. Hahn is a 78-year-old white female, who was seen by the Renal Service for acute kidney injury that was hemodynamically-mediated renal dysfunction. Adjustment of her medication was done at that time, which improved the renal function to normal. Due to the stabilization of this patient's medical condition, she was transferred to telemetry. However last night, the patient went to acute respiratory distress. She was noted to be hypotensive. She is currently now in the ICU, currently on BiPAP, and blood pressure was not obtainable, and for this reason, the patient has been started on pressor support. Renal function is also noted to have worsened again. OBJECTIVE: VITAL SIGNS: Blood pressure currently not obtainable, heart rate is noted at 89, pulse ox 77%. GENERAL: She is unresponsive on BiPAP, obese. SKIN: Adequate turgor. HEENT: Pinkish conjunctivae. Anicteric sclerae. NECK: No neck mass. No carotid bruits. No JVD. CHEST: No deformities. LUNGS: Clear breath sounds. HEART: Normal sinus rhythm. No murmur. No gallops. No rubs. ABDOMEN: Globular, soft, nontender. No masses. EXTREMITIES: No edema. No deformities. MEDICATIONS: Medications February 07, 2019, were reviewed. LABORATORY DATA: Laboratories of February 07, 2019; white count 50.7, hemoglobin 6.9. Sodium 136, potassium 5.9, chloride 106, carbon dioxide 11, BUN is 23, creatinine 1.45, glucose 139, and calcium 8.1. ASSESSMENT AND PLAN: 1. Acute kidney injury - I suspect again that this is hemodynamically-mediated renal dysfunction based on her most recent clinical event - the patient went to acute respiratory failure with low blood pressure. Currently optimizing hemodynamics. The patient is currently on pressor support. 2. Metabolic acidosis, most likely related to her acute kidney injury. We will hold off any bicarbonate solution until we can review the chest x-ray to rule out for any underlying congestive heart failure. 3. Anemia. P.r.n. blood transfusion. 4. Overall prognosis remains poor with this patient. Please note that this is a second episode of acute respiratory failure with this patient in the same clinical setting. We may need also to consider the possibility of cardiac ischemic event precipitating this acute respiratory failure. 5. Overall agree with current management. Job ID: [id number]
--- NOTE | 2019-02-07 08:55 | RAD ---
CHEST ONE VIEW: INDICATIONS: History of chest pressures with the patient being placed on BiPAP. COMPARISON: 02/04/2019 FINDINGS: There is a stable left IJ central venous catheter. Mild cardiomegaly is stable. Lungs are clear. No p leural effusion or pneumothorax is grossly evident. Mild vascular congestion persists. No pneumothora x is noted. IMPRESSION: Stable examination. POS: OFF
--- NOTE | 2019-02-07 08:59 | PRG ---
DATE OF SERVICE: 02/07/2019 SUBJECTIVE: This morning, there has been a dramatic change in overall status. She became hypotensive and hypoxic last night with change in mental status after she was complaining of abdominal pain as per the nurses. She was given a [place]. She was transferred to the ICU, where she was started on Levophed. OBJECTIVE: VITAL SIGNS: They are unable to get a blood pressure. Her pulse is 68. Unable to olive picker any oxygen. She is clearly unresponsive. HEENT: Pupils are 2 mm. CHEST: Decreased breath sounds. I heard no wheezing. CARDIAC: Normal sinus rhythm. She was previously in AFib. ABDOMEN: Distended but soft. LABORATORY DATA: Shows multiple problems. White count is increased to 50,000, H and H have dropped to 6.9 and 23, platelet count 343, 70 segs, 5 bands, myelocytes, metamyelocytes. BUN is increased to 23, creatinine 1.45. PO2 is 135, pCO2 of 33, pH 7.12, this is on a BiPAP 50, rate of 20, severe metabolic acidosis. X-ray surprisingly shows no new infiltrate. IMPRESSION: 1. Marked leukocytosis metabolic acidosis, probably from ischemic bowel. She has abdominal pain for a period of time. 2. Respiratory failure, chronic obstructive pulmonary disease, sleep apnea. 3. Hypothyroidism, severe deconditioning, and atrial fibrillation. 4. Family is to arrive shortly. She is a DNR. She is not to be intubated. She is on pressors and additional IV fluids being given. Unfortunately, she will require additional imaging studies to see whether she has ischemic bowel. She is probably not a surgical candidate at this stage. 5. We will continue comfort care until family arrives. 6. I am going to hold off starting any antibiotics at this stage in spite of having significant leukocytosis. One-half hour of critical care time. Job ID: [id number]
[2019-02-07] MEDS ORDERED: Enoxaparin Sodium 100 MG/ML SYRINGE SC SCH (09:00)
--- NOTE | 2019-02-07 11:15 | PRG ---
DATE OF SERVICE: 02/07/2019 Family arrived at 10:30 or so. Upon arrival, she was clearly agonal. There is no audible pulse or blood pressure. She appeared to be in PEA. Her BiPAP was removed. Her Levophed drip was discontinued. Family agreed for comfort care. At 10:45, no spontaneous respiration, no blood pressure, no pulse. She was pronounced . Body will probably be released to a home. No autopsy performed. FINAL DIAGNOSES: 1. Acute cardiorespiratory failure secondary to possibly ischemic colon. 2. Chronic obstructive pulmonary disease, respiratory failure, status post intubation. 3. Atrial fibrillation, SVT. PLAN: Body is being released to the home. Family was at the bedside. Job ID: [id number]
--- NOTE | 2019-02-07 16:41 | DIS ---
DATE OF ADMISSION: 01/24/2019 DATE OF DISCHARGE: 02/07/2019 NOTE PRIMARY CARE PHYSICIAN: No PCP. , 02/07/2019 at 10:44 a.m. FINAL DIAGNOSES: Acute cardiorespiratory failure, acute kidney failure, atrial fibrillation, chronic obstructive pulmonary disease, and coronary artery disease. HOSPITAL COURSE: The patient admitted to the hospital 01/25/2019 to the [facility] with hypotension and weakness. She had a history of diastolic heart failure, coronary artery disease, hypertension, elevated cholesterol, and atrial fibrillation. She was initially placed in the hospital on Levophed, fluid resuscitation. She improved dramatically. Levophed was stopped. Blood cultures were done. She was treated with IV antibiotics. She was found to have creatinine of 4 with a baseline of less than 2 a few months back. Blood cultures showed no growth. Urine culture, 02/01/2019, no growth. Influenza test was negative. Dr. Flory Cintron was consulted. The patient was confused, did not know what medicine she was taking, which was sought. Continued fluid resuscitation. On 01/26/2019, she was seen by Dr. Raheem Ayon. She was found to be in respiratory distress, obtunded. She had been put on BiPAP. Her pH was 7.19, CO2 of 52, pO2 of 56. She was intubated with a diagnosis of acute combined respiratory failure. On 01/26/2019, Dr. Ayon did a bronchoscopy to place endotracheal tube. Chest x-ray on 01/28 revealed large mediastinal silhouette. No evidence of CHF, mass, or pleural effusion. On 01/28/2019, she was comfortable on mechanical ventilation. Chest was clear with some minimal crackles in the bases. Heart had regular rate and rhythm. No murmurs. White cell count was 12.3, hemoglobin 10.0. Creatinine was down to 1.5, BUN 62, sodium 148. Brain CT on 01/29, no acute intracranial process. On 01/30, she was still on vent, not weanable. She was on amiodarone and Cardizem for SVT. Cultures negative. She was still on vancomycin, Maxipime, Reglan, steroids, and neb treatment. Vancomycin was discontinued. Brain MRI was done on 01/31/2019. No acute intracranial process. Revealed high-grade multilevel spondylosis with nerve root abutment. Lower extremity ultrasound revealed patent right lower extremity arterial structures, but abnormal monophasic. On 01/31, the patient was extubated. On 02/01/2019, the patient was seen by Palliative Care. On 02/06/2019, the patient was alert, oriented, feeling better. P.o. digoxin, Cardizem, and amiodarone were continued. She was still on supplementary O2, on p.o. antibiotics. When I first saw her today, 02/07/2019, she was in the intensive care unit on BiPAP, not responded. She had a DNR status. She was on Levophed for blood pressure support. She had a severe metabolic acidosis. Situation was discussed with the director career. Dr. Stoll did discuss things with family, decision was made to not intubate based on the fact she was DNR, family was in agreement. The patient continued her ill course. At 1045 hours, she was pronounced . Family was at bedside. Body released to home. No autopsy. Job ID: [id number]
--- NOTE | 2019-02-11 16:50 | EKG ---
Test Reason : SEPSIS ALERT Blood Pressure : / mmHG Vent. Rate : 055 BPM Atrial Rate : 055 BPM P-R Int : 150 ms QRS Dur : 148 ms QT Int : 496 ms P-R-T Axes : 007 045 064 degrees QTc Int : 474 ms Sinus bradycardia Left bundle branch block Abnormal ECG Confirmed by SILVANO GARDNER, CLARITZA ([id number]), order editor EVELYN MATUTE ([id number]) on 02/11/2019 4:49:49 PM Referred By: SILVANO Confirmed By:CLARITZA SCHAEFER MD
== END 2019-02-07 12:18 | disposition expired | DRG 870 ==
LOC: ERS 18:12 → CCU 23:28 → T4-B 01-25 14:43 → CCU 01-26 06:25 → 2NO 02-03 23:14 → CCU 02-07 05:18
PROVIDERS: ADMIT Internal Medicine; ATTEND Internal Medicine
PROC: 0BH17EZ Insertion of Endotracheal Airway into Trachea, Via Natural or Artificial Opening (ICD-10-PCS; principal; 2019-01-26)
PROC: 5A1955Z Respiratory Ventilation, Greater than 96 Consecutive Hours (ICD-10-PCS; 2019-01-26)
DX: A41.9 Sepsis, unspecified organism (principal); J96.01 Acute respiratory failure with hypoxia; I50.43 Acute on chronic combined systolic (congestive) and diastolic (congestive) heart failure; G93.41 Metabolic encephalopathy; N17.9 Acute kidney failure, unspecified; E87.0 Hyperosmolality and hypernatremia; I47.1 Supraventricular tachycardia; I13.0 Hypertensive heart and chronic kidney disease with heart failure and stage 1 through stage 4 chronic kidney disease, or unspecified chronic kidney disease; Z68.41 Body mass index [BMI] 40.0-44.9, adult; J44.1 Chronic obstructive pulmonary disease with (acute) exacerbation; K55.1 Chronic vascular disorders of intestine; E86.0 Dehydration; I48.91 Unspecified atrial fibrillation; I25.10 Atherosclerotic heart disease of native coronary artery without angina pectoris; R33.9 Retention of urine, unspecified; M54.16 Radiculopathy, lumbar region; E87.8 Other disorders of electrolyte and fluid balance, not elsewhere classified; Z95.1 Presence of aortocoronary bypass graft; Z90.49 Acquired absence of other specified parts of digestive tract; F32.9 Major depressive disorder, single episode, unspecified; N18.9 Chronic kidney disease, unspecified; G47.33 Obstructive sleep apnea (adult) (pediatric); E66.01 Morbid (severe) obesity due to excess calories; R79.89 Other specified abnormal findings of blood chemistry; I73.9 Peripheral vascular disease, unspecified; Z51.5 Encounter for palliative care; Z66 Do not resuscitate; D64.9 Anemia, unspecified; D72.823 Leukemoid reaction
CPT/HCPCS: 36415; 36416; 36556; 51701; 70450; 70551; 71045; 72040; 72100; 72148; 74018; 76770; 80048; 80053; 80162; 80202; 81001; 81003; 81015; 82274; 82550; 82805; 83605; 83690; 83735; 83880; 84439; 84443; 84484; 85025; 85379; 85652; 86140; 87040; 87045; 87046; 87086; 87324; 87328; 87329; 87427; 87449; 87804; 93005; 93010; 93923; 94002; 94003; 94640; 94660; 96361; 96365; 96366; 96367; 96368; 96372; 96375; 99292; A4353; J0282; J0456; J0692; J0696; J1100; J1160; J1644; J1650; J1940; J1956; J2060; J2250; J2270; J2543; J2704; J2765; J2920; J3370; J3490; J7050; J7070; J7512; J7620; P9045; S0028